=== PATIENT | female | born 1950 | race American Indian/Alaskan Native ===

== ENCOUNTER 2017-08-10 05:15 | Day surgery (SDC) | payer MEDICARE, MEDICAID ==
[2017-08-10] MEDS ORDERED: fentaNYL 100 MCG/2 ML SDV IV ONE ×3 (05:16→06:36)
[2017-08-10] MEDS ORDERED: Midazolam 1 MG/ML 2 ML SDV IV ONE ×3 (05:16→06:37)
[2017-08-10] MEDS ORDERED: Dextrose 5%-0.45% NaCl 1,000 ML IV SCH (06:00)
[2017-08-10] MEDS ORDERED: Sodium Chloride 0.9% 10 ML Syringe FLUSH PRN (06:00)
[2017-08-10] MEDS ORDERED: Midazolam 1 MG/ML 2 ML SDV ONE (06:13)
[2017-08-10] MEDS ORDERED: fentaNYL 100 MCG/2 ML SDV ONE (06:13)
[2017-08-10 09:11] VITALS: BP 96/49
--- NOTE | 2017-08-10 09:46 | OR ---
DATE: 08/10/2017 PROCEDURE: Esophagogastroduodenoscopy and multiple pinch biopsies. INSTRUMENT USED: GIF-H180 Olympus video panendoscope. PREMEDICATIONS: No oral topical anesthesia used. Fentanyl 100 mcg intravenous, Versed 2 mg intravenous. Nasal 2 L O2 cannula. The procedure was done under pulse oximetry, BP recording, and alarm security or surveillance monitor. INDICATION: The patient with persistent upper abdominal pain and dyspepsia, unexplained, and not responsive to medical measures, on acid suppressants mcfp. Esophagogastroduodenoscopy is performed for detection of any active erosive lesions, malignancy also under consideration, H. pylori status to be determined, endoscopic hemostasis therapy if needed. DESCRIPTION OF PROCEDURE: The scope was passed with ease. Adequate visualization of the esophagus was made from proximal to distal areas. No upper esophageal lesions identified. No distal esophageal stricture. No uphill or downhill esophageal varices. No Jennifer-Moreno tear. No evidence of erosive esophagitis by [employer] criteria. No esophageal polyp or tumor mass identified. Z-line was seen at around 40 cm distal to the oral verge, configuration consistent with grade 1 by ZAP classification. No proximal gastric varices noted. Gastric fundus examination by retroflexion showed no polypoid lesions. No gastric ulcer, malignant mass, or vascular ectasia identified. Duodenal bulb showed no ulcer. Visualized second part of the duodenum, showed diverticulum, photograph was taken, multiple pinch biopsies were taken from the gastric antrum and proximal body and sent for Pyl[employer]ek test for H. pylori, and if negative in an hour, the tissue is to be sent for histopathology. No bleeding was noted from any of the visualized areas at the completion of examination. Photographs were taken of the duodenal bulb, gastric antrum, fundus, and distal esophagus. IMPRESSION: Duodenal diverticulum. The patient tolerated the procedure well. [facility] /[id number]
== END 2017-08-10 08:35 | disposition home or self-care (01) ==
LOC: DL.ENDO 05:15
PROVIDERS: ATTEND Internal Medicine Gastroenterology
DX: K29.50 Unspecified chronic gastritis without bleeding (principal); K57.10 Diverticulosis of small intestine without perforation or abscess without bleeding; E11.9 Type 2 diabetes mellitus without complications; E66.9 Obesity, unspecified; E78.5 Hyperlipidemia, unspecified; F32.9 Major depressive disorder, single episode, unspecified; K21.9 Gastro-esophageal reflux disease without esophagitis; Z88.1 Allergy status to other antibiotic agents; Z88.2 Allergy status to sulfonamides; Z88.8 Allergy status to other drugs, medicaments and biological substances
CPT/HCPCS: 43239; 87077; J2250; J3010; J7042; 88305

== ENCOUNTER 2019-09-11 12:02 | Emergency (ER) | payer MEDICARE, MEDICAID ==
[2019-09-11 12:29] VITALS: BP 131/50; PULSE 80
[2019-09-11 13:44] LABS: CHLORIDE,CL 102 mmol/L (101-111); SODIUM,NA 136 mmol/L (135-145)
--- NOTE | 2019-09-11 14:07 | EDM.PDOC ---
Scribed by Layne Riojas 09/11/19 0622 for Fernando Manzo PA ED HPI GENERAL MEDICAL PROBLEM - General Chief Complaint: Flank Pain Stated Complaint: LOWER BACK HURTS, NOT FEELING GOOD Time Seen by Provider: 09/11/19 12:55 Source of Information: Reports: Patient, RN, RN Notes Reviewed History Limitations: Reports: No Limitations - History of Present Illness INITIAL COMMENTS - FREE TEXT/NARRATIVE: Patient is a 69-year-old female who presents to ER with "back hurts" x 2 days. She took Tylenol. She had an MRI in [place] for a spot on her right kidney. On 08/30/19 she had her last MD visit. She has a sore throat, eyes hurt and diffuse abdominal pain. Onset: Gradual Duration: Getting Worse Location: Reports: Back Quality: Reports: Ache Severity: Moderate Improves with: Reports: None Worsens with: Reports: None Associated Symptoms: Reports: No Other Symptoms Right Flank Pain Score (Numeric/FACES): 6 - Related Data Allergies Allergy/AdvReac Type Severity Reaction Status Date / Time acetaminophen Allergy Rash Verified 09/11/19 12:18 [From Darvocet-N 100] atorvastatin calcium Allergy Cannot Verified 09/11/19 12:18 [From Lipitor] Remember cephalexin [From Keflex] Allergy Swelling Verified 09/11/19 12:18 codeine Allergy Nausea and Verified 09/11/19 12:18 Vomiting lansoprazole [From Prevacid] Allergy Rash Verified 09/11/19 12:18 levofloxacin [From Levaquin] Allergy Blisters Verified 09/11/19 12:18 propoxyphene napsylate Allergy Rash Verified 09/11/19 12:18 [From Darvocet-N 100] Sulfa (Sulfonamide Allergy Cannot Verified 09/11/19 12:18 Antibiotics) Remember tramadol HCl [From Ultram] Allergy Rash Verified 09/11/19 12:18 Milk Allergy Diarrhea Uncoded 09/11/19 12:18 Home Meds: Home Meds Acetaminophen [Tylenol Extra Strength] 500 tab PO DAILY PRN 09/05/13 [History] Calcium Carbonate/Vitamin D3 [Calcium 250+D] 500 mg PO BID 09/05/13 [History] Clopidogrel [Plavix] 75 mg PO DAILY 09/05/13 [History] Diclofenac Sodium [Voltaren 1% Gel] 1 applic TOP ASDIRECTED PRN 09/05/13 [ History] Levothyroxine [Synthroid] 175 mcg PO ACBRK 09/05/13 [History] Loperamide [Imodium] 2 mg PO DAILY PRN 09/05/13 [History] Mirtazapine [Remeron] 15 mg PO BEDTIME 09/05/13 [History] Tiotropium [Spiriva HandiHaler] 1 cap IH DAILY PRN 09/05/13 [History] amLODIPine [Norvasc] 5 mg PO DAILY 09/05/13 [History] Colesevelam [Welchol] 3 tab PO BID 11/12/13 [History] DULoxetine [Cymbalta] 60 mg PO BID 11/12/13 [History] sitaGLIPtin Phos/Metformin HCl [Janumet 50-1,000 mg Tablet] 1 each PO BID [History] Furosemide [Lasix] 40 mg PO BID 03/15/14 [History] Insulin Aspart [NovoLOG] 15 unit SQ TIDMEALS 05/14/16 [History] Budesonide/Formoterol Fumarate [Symbicort 80-4.5 MCG] 2 puff INH BID 08/07/17 [ History] Valsartan 1 tab PO DAILY 08/07/17 [History] Aspirin [Adult Low Dose Aspirin EC] 81 mg PO DAILY 03/08/18 [History] Insulin Detemir [Levemir Flextouch] 80 units INJECT BEDTIME 03/08/18 [History] Nitroglycerin [Nitrostat] 0.4 mg PO ASDIRECTED 03/08/18 [History] Nystatin 500,000 unit PO QID 03/08/18 [History] Pantoprazole [ProTONIX] 40 mg PO DAILY 03/08/18 [History] Potassium Chloride 1 tab PO BID 03/08/18 [History] hydrOXYzine HCL [hydrOXYzine] 1 tab PO TID PRN 03/08/18 [History] traZODone HCl [Trazodone HCl] 25 mg PO DAILY 03/08/18 [History] ClonazePAM [KlonoPIN] 0.5 mg PO TID 03/09/18 [History] Past Medical History HEENT History: Reports: Epistaxis, Impaired Vision, Other (See Below) (aneurysm brain) Cardiovascular History: Reports: CAD, High Cholesterol, Hypertension, SOB on Exertion, Other (See Below) Other Cardiovascular History: ISCHEMIC HEART DIESASE Respiratory History: Reports: COPD, Sleep Apnea, Other (See Below) Gastrointestinal History: Reports: Diverticulosis, GERD, Hemorrhoids, Hiatal Hernia, Irritable Bowel Syndrome Other Gastrointestinal History: Focal nodular hyperplasia of liver. 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 Post menopausal HRT Musculoskeletal History: Reports: Osteoarthritis, Other (See Below) (right knee pain) Neurological History: Reports: Cerebral Aneurysms, CVA Other Neuro History: Embolic stroke involving anterior cerebral artery, right Psychiatric History: Reports: Anxiety, Depression Endocrine/Metabolic History: Reports: Diabetes, Type II, Hypothyroidism, Obesity /BMI 30+ Hematologic History: Reports: None Immunologic History: Reports: None Oncologic (Cancer) History: Reports: Cervix Dermatologic History: Reports: Cellulitis - Infectious Disease History Infectious Disease History: Reports: None - Past Surgical History Head Surgeries/Procedures: Reports: None HEENT Surgical History: Reports: Other (See Below) GI Surgical History: Reports: Cholecystectomy Female Surgical History: Reports: Hysterectomy Social & Family History - Family History Family Medical History: Noncontributory - Tobacco Use Smoking Status *Q: Never Smoker Second Hand Smoke Exposure: No - Caffeine Use Caffeine Use: Reports: Coffee Other Caffeine Use: AVERAGE OF 4 CUPS DAILY - Recreational Drug Use Recreational Drug Use: No - Living Situation & Occupation Living situation: Reports: with Family Occupation: Retired ED ROS GENERAL - Review of Systems Review Of Systems: Comprehensive ROS is negative, except as noted in HPI. ED EXAM,LOWER BACK PAIN/INJURY - Physical Exam Exam: See Below Exam Limited By: No Limitations General Appearance: Obese Eye Exam: Bilateral Eye: EOMI, Normal Inspection, PERRL Ears: Normal External Exam, Normal Canal, Hearing Grossly Normal, Normal TMs Nose: Normal Inspection, Normal Mucosa, No Blood Throat/Mouth: Other (dry mouth) Head: Atraumatic, Normocephalic Neck: Normal Inspection, Supple, Non-Tender, Full Range of Motion Respiratory/Chest: No Respiratory Distress, Lungs Clear, Normal Breath Sounds, No Accessory Muscle Use, Chest Non-Tender Cardiovascular: Normal Peripheral Pulses, Regular Rate, Rhythm, No Edema, No Gallop, No JVD, No Murmur, No Rub GI/Abdominal: Other (obese) (Female) Exam: Deferred Rectal (Female) Exam: Deferred Back Exam: Other (right lateral back pain) Extremities: Normal Inspection, Normal Range of Motion, Non-Tender, No Pedal Edema, Normal Capillary Refill Neurological: Alert, Normal Mood/Affect, Normal Dorsiflexion, CN II-XII Intact, Normal Plantar Flexion, Normal Gait, Normal Reflexes, No Motor/Sensory Deficits , Oriented x 3 Psychiatric: Normal Affect, Normal Mood Skin Exam: Warm, Dry, Intact, Normal Color, No Rash Lymphatic: No Adenopathy Course - Vital Signs Last Recorded V/S: Last Vital Signs Temp 36.3 C 09/11/19 12:23 Pulse 80 09/11/19 12:23 Resp 16 09/11/19 12:23 BP 131/50 L 09/11/19 12:23 Pulse Ox 98 09/11/19 12:23 - Orders/Labs/Meds Orders: Active Orders 24 hr Category Date Time Status CULTURE STREP A CONFIRMATION [RM] Stat Lab 09/11/19 12:51 Results STREP SCRN A RAPID W CULT CONF [RM] Stat Lab 09/11/19 12:51 Results Labs: Laboratory Tests 09/11/19 09/11/19 09/11/19 Range/Units 12:25 13:16 13:16 WBC 6.7 (5.0-10.0) 10^3/uL RBC 4.41 (4.2-5.4) 10^6/uL Hgb 11.5 L (12.0-16.0) g/dL Hct 36.7 L (37.0-47.0) % MCV 83.2 (80-100) fL MCH 26.1 L (27.0-34.0) pg MCHC 31.3 L (33.0-35.0) g/dL Plt Count 270 (150-450) 10^3/uL Neut % (Auto) 63.0 (42.2-75.2) % Lymph % (Auto) 22.7 (20.5-50.1) % Dickens % (Auto) 12.0 H (2-8) % Eos % (Auto) 2.0 (1.0-3.0) % Baso % (Auto) 0.3 (0.0-1.0) % Sodium 136 (135-145) mmol/L Potassium 4.0 (3.6-5.0) mmol/L Chloride 102 D (101-111) mmol/L Carbon Dioxide 26.0 (21.0-31.0) mmol/L Anion Gap 12.0 BUN 10 (7-18) mg/dL Creatinine 0.9 (0.6-1.3) mg/dL Est Cr Clr Drug Dosing 49.49 mL/min Estimated GFR (MDRD) > 60 BUN/Creatinine Ratio 11.11 Glucose 157 H (74-105) mg/dL Calcium 9.5 (8.4-10.2) mg/dl Total Bilirubin 0.2 (0.2-1.0) mg/dL AST 30 (10-42) IU/L ALT 19 (10-60) IU/L Alkaline Phosphatase 62 (42-121) IU/L Total Protein 7.9 (6.7-8.2) g/dl Albumin 3.7 (3.2-5.5) g/dl Globulin 4.2 Albumin/Globulin Ratio 0.88 Urine Color Yellow (YELLOW) Urine Appearance Clear (CLEAR) Urine pH 5.5 (5.0-9.0) Ur Specific Armstrong 1.010 (1.005-1.030) Urine Protein Negative (NEGATIVE) Urine Glucose (UA) Negative (NEGATIVE) Urine Ketones Negative (NEGATIVE) Urine Occult Blood Negative (NEGATIVE) Urine Nitrite Negative (NEGATIVE) Urine Bilirubin Negative (NEGATIVE) Urine Urobilinogen 0.2 (0.2-1.0) mg/dL Ur Leukocyte Esterase Negative (NEGATIVE) Meds: Medications Discontinued Medications Generic Name Dose Route Start Last Admin Trade Name Gwen PRN Reason Stop Dose Admin Ketorolac Tromethamine 30 mg 09/11/19 14:02 Toradol IM 09/11/19 14:03 ONETIME ONE Departure - Departure Time of Disposition: 14:03 Disposition: Home, Self-Care 01 Condition: Fair Clinical Impression: Muscle strain Low back pain Qualifiers: Chronicity: acute Back pain laterality: right Sciatica presence: without sciatica Qualified Code(s): M54.5 - Low back pain - Discharge Information *PRESCRIPTION DRUG MONITORING PROGRAM REVIEWED*: Not Applicable *COPY OF PRESCRIPTION DRUG MONITORING REPORT IN PATIENT MACIE: Not Applicable Instructions: Back Injury Prevention, [id number], Low Back Strain Forms: ED Department Discharge Care Plan Goals: The patient was advised of the examination and lab results during the visit. The patient was given an injection of Toradol while in the ED. The patient was discharged with a script for Toradol (10 mg) #20 to take 1 by mouth every 6 hours. If the patient has any additional symptoms or concerns, the patient should either return to the emergency department or visit her primary care facility. Sepsis Event Note - Evaluation Sepsis Screening Result: No Definite Risk - Focused Exam Vital Signs: Vital Signs Temp Pulse Resp BP Pulse Ox 09/11/19 12:23 36.3 C 80 16 131/50 L 98 Date Exam was Performed: 09/11/19 Time Exam was Performed: 14:03 - My Orders Last 24 Hours: My Active Orders 09/11/19 12:51 CULTURE STREP A CONFIRMATION [RM] Stat STREP SCRN A RAPID W CULT CONF [RM] Stat - Assessment/Plan Last 24 Hours: My Active Orders 09/11/19 12:51 CULTURE STREP A CONFIRMATION [RM] Stat STREP SCRN A RAPID W CULT CONF [RM] Stat I have read and agree with the documentation that has been completed regarding this visit. By signing this record, I attest that the documentation was completed in my physical presence and is an accurate record of the encounter.
[2019-09-11] MEDS: Ketorolac 30 MG/ML SDV IM ONE (14:10)
== END 2019-09-11 14:20 | disposition home or self-care (01) ==
LOC: DL.ED 12:02
DX: M54.5 Low back pain (principal)
CPT/HCPCS: 36415; 80053; 81003; 85025; 87081; 87430; 87804; 96372; 99284; J1885

== ENCOUNTER 2020-03-18 09:25 | Emergency (ER) | payer MEDICARE, MEDICAID ==
[2020-03-18 09:42] VITALS: BP 149/54; PULSE 87
--- NOTE | 2020-03-18 09:48 | EDM.PDOC ---
ED HPI GENERAL MEDICAL PROBLEM - General Chief Complaint: Gastrointestinal Problem Stated Complaint: AMBULANCE Time Seen by Provider: 03/18/20 09:25 Source of Information: Reports: Patient History Limitations: Reports: No Limitations - History of Present Illness INITIAL COMMENTS - FREE TEXT/NARRATIVE: ED with c/o not feeling well , diarrhea stools x one week. Colonoscopy on february 20 for same, blood noted prior with diarrhea. Hx lung ca. last chemo on - Granix. Feeling bloated. Ran out of immodium at 3am. Has taken Pepto. doesn't seem to help. Up to BR every 15-30 minutes, explosive small amounts Abdomen Pain Score (Numeric/FACES): 6 - Related Data Allergies Allergy/AdvReac Type Severity Reaction Status Date / Time acetaminophen Allergy Rash Verified 03/18/20 09:41 [From Darvocet-N 100] atorvastatin calcium Allergy Cannot Verified 03/18/20 09:41 [From Lipitor] Remember cephalexin [From Keflex] Allergy Swelling Verified 03/18/20 09:41 codeine Allergy Nausea and Verified 03/18/20 09:41 Vomiting lansoprazole [From Prevacid] Allergy Rash Verified 03/18/20 09:41 levofloxacin [From Levaquin] Allergy Blisters Verified 03/18/20 09:41 propoxyphene napsylate Allergy Rash Verified 03/18/20 09:41 [From Darvocet-N 100] Sulfa (Sulfonamide Allergy Cannot Verified 03/18/20 09:41 Antibiotics) Remember tramadol HCl [From Ultram] Allergy Rash Verified 03/18/20 09:41 Milk Allergy Diarrhea Uncoded 09/11/19 12:18 Home Meds: Home Meds Acetaminophen [Tylenol Extra Strength] 500 tab PO DAILY PRN 09/05/13 [History] Calcium Carbonate/Vitamin D3 [Calcium 250+D] 500 mg PO BID 09/05/13 [History] Clopidogrel [Plavix] 75 mg PO DAILY 09/05/13 [History] Diclofenac Sodium [Voltaren 1% Gel] 1 applic TOP ASDIRECTED PRN 09/05/13 [History] Levothyroxine [Synthroid] 175 mcg PO ACBRK 09/05/13 [History] Loperamide [Imodium] 2 mg PO DAILY PRN 09/05/13 [History] Mirtazapine [Remeron] 15 mg PO BEDTIME 12/16/13 [History] Tiotropium [Spiriva HandiHaler] 1 cap IH DAILY PRN 09/05/13 [History] amLODIPine [Norvasc] 5 mg PO DAILY 09/05/13 [History] Colesevelam [Welchol] 3 tab PO BID 11/12/13 [History] DULoxetine [Cymbalta] 60 mg PO BID 11/12/13 [History] sitaGLIPtin Phos/Metformin HCl [Janumet 50-1,000 mg Tablet] 1 each PO BID 11/12/13 [History] Furosemide [Lasix] 40 mg PO BID 03/15/14 [History] Insulin Aspart [NovoLOG] 16 unit SQ TIDMEALS 05/14/16 [History] Budesonide/Formoterol Fumarate [Symbicort 80-4.5 MCG] 2 puff INH BID 08/07/17 [History] Valsartan 1 tab PO DAILY 08/07/17 [History] Aspirin [Adult Low Dose Aspirin EC] 81 mg PO DAILY 03/08/18 [History] Insulin Detemir [Levemir Flextouch] 80 units INJECT BEDTIME 03/08/18 [History] Nitroglycerin [Nitrostat] 0.4 mg PO ASDIRECTED 03/08/18 [History] Nystatin 500,000 unit PO QID 03/08/18 [History] Pantoprazole [ProTONIX] 40 mg PO DAILY 03/08/18 [History] Potassium Chloride 1 tab PO BID 03/08/18 [History] hydrOXYzine HCL [hydrOXYzine] 1 tab PO TID PRN 03/08/18 [History] traZODone HCl [Trazodone HCl] 25 mg PO BEDTIME 03/08/18 [History] ClonazePAM [KlonoPIN] 0.5 mg PO BID 03/09/18 [History] Past Medical History HEENT History: Reports: Epistaxis, Impaired Vision, Other (See Below) Cardiovascular History: Reports: CAD, High Cholesterol, Hypertension, SOB on Exertion, Other (See Below) Other Cardiovascular History: ISCHEMIC HEART DIESASE Respiratory History: Reports: COPD, Sleep Apnea, Other (See Below) Gastrointestinal History: Reports: Diverticulosis, GERD, Hemorrhoids, Hiatal Hernia, Irritable Bowel Syndrome Other Gastrointestinal History: Focal nodular hyperplasia of liver. 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 Post menopausal HRT Musculoskeletal History: Reports: Fibromyalgia, Osteoarthritis, Other (See Below) Neurological History: Reports: Cerebral Aneurysms, CVA Other Neuro History: Embolic stroke involving anterior cerebral artery, right Psychiatric History: Reports: Anxiety, Depression Endocrine/Metabolic History: Reports: Diabetes, Type II, Hypothyroidism, Obesity/BMI 30+ Hematologic History: Reports: None Immunologic History: Reports: None Oncologic (Cancer) History: Reports: Cervix Dermatologic History: Reports: Cellulitis - Infectious Disease History Infectious Disease History: Reports: None - Past Surgical History Head Surgeries/Procedures: Reports: None HEENT Surgical History: Reports: Tonsillectomy, Other (See Below) Cardiovascular Surgical History: Reports: None Respiratory Surgical History: Reports: None GI Surgical History: Reports: Cholecystectomy Female Surgical History: Reports: Hysterectomy Neurological Surgical History: Reports: None Musculoskeletal Surgical History: Reports: None Social & Family History - Family History Family Medical History: Noncontributory - Caffeine Use Caffeine Use: Reports: None Other Caffeine Use: AVERAGE OF 4 CUPS DAILY - Living Situation & Occupation Living situation: Reports: with Family Occupation: Retired ED ROS GENERAL - Review of Systems Review Of Systems: See Below Constitutional: Reports: Malaise, Decreased Appetite. Denies: Fever, Chills HEENT: Reports: No Symptoms Respiratory: Reports: No Symptoms Cardiovascular: Reports: No Symptoms GI/Abdominal: Reports: Abdominal Pain, Diarrhea, Decreased Appetite, Distension. Denies: Nausea : Reports: No Symptoms Musculoskeletal: Reports: No Symptoms Skin: Reports: No Symptoms Neurological: Reports: No Symptoms ED EXAM, GI/ABD - Physical Exam Exam: See Below Exam Limited By: No Limitations General Appearance: Alert, Mild Distress, Obese Ears: Normal External Exam Nose: Normal Inspection Throat/Mouth: Normal Inspection Head: Atraumatic, Normocephalic Neck: Normal Inspection Respiratory/Chest: No Respiratory Distress Cardiovascular: Normal Peripheral Pulses, Regular Rate, Rhythm Back Exam: Full Range of Motion Neurological: Alert, Oriented, Normal Cognition, No Motor/Sensory Deficits Psychiatric: Flat Affect Skin Exam: Warm, Dry, Intact, Pallor Course - Vital Signs Last Recorded V/S: Last Vital Signs Temp 96.2 F L 03/18/20 09:41 Pulse 87 03/18/20 09:41 Resp 14 03/18/20 09:41 BP 149/54 H 03/18/20 09:41 Pulse Ox 97 03/18/20 09:41 - Orders/Labs/Meds Orders: Active Orders 24 hr Category Date Time Status CLOSTRIDIUM DIFFICILE TOX RFLX [MREF] Stat Lab 03/18/20 09:47 Received CULTURE BLOOD [BC] Stat Lab 03/18/20 09:37 Received CULTURE BLOOD [BC] Stat Lab 03/18/20 10:25 Received CULTURE STOOL [RM] Stat Lab 03/18/20 09:47 Received OVA & PARASITES BY IMMUNOASSAY [MREF] Stat Lab 03/18/20 09:47 Received SHIGA TOXIN 1 & 2 [MREF] Stat Lab 03/18/20 09:47 Received UA RFX ADAMA AND CULT IF INDIC [URIN] Stat Lab 03/18/20 11:08 Ordered Blood Culture x2 Reflex Set [OM.PC] Stat Oth 03/18/20 09:30 Ordered Isolation [COMM] Stat Oth 03/18/20 09:33 Active Labs: Laboratory Tests 03/18/20 03/18/20 03/18/20 Range/Units 09:37 09:37 09:37 WBC 4.8 L (5.0-10.0) 10^3/uL RBC 3.13 L (4.2-5.4) 10^6/uL Hgb 9.2 L D (12.0-16.0) g/dL Hct 28.6 L (37.0-47.0) % MCV 91.4 D (80-100) fL MCH 29.4 (27.0-34.0) pg MCHC 32.2 L (33.0-35.0) g/dL Plt Count 61 L D (150-450) 10^3/uL Neut % (Auto) 80.6 H (42.2-75.2) % Lymph % (Auto) 7.1 L (20.5-50.1) % Boundary % (Auto) 11.7 H (2-8) % Eos % (Auto) 0.6 L (1.0-3.0) % Baso % (Auto) 0.0 (0.0-1.0) % Add Manual Diff Yes Neutrophils % (Manual) 62 (42-75) % Band Neutrophils % 15 % Lymphocytes % (Manual) 11 L (20-50) % Monocytes % (Manual) 4 (2-8) % Eosinophils % (Manual) 1 (1-3) % Metamyelocytes % 6 Myelocytes % 1 PT 11.0 (9.0-12.0) SEC INR 1.2 (0.9-1.2) Sodium 135 L (136-145) mmol/L Potassium 3.4 L (3.5-5.1) mmol/L Chloride 99 (98-107) mmol/L Carbon Dioxide 24 (21-32) mmol/L Anion Gap 15.4 H (7-13) mEq/L BUN 12 (7-18) mg/dL Creatinine 1.25 H (0.55-1.02) mg/dL Est Cr Clr Drug Dosing 32.50 mL/min Estimated GFR (MDRD) 43 BUN/Creatinine Ratio 9.6 (No establ ref range) Glucose 162 H (74-99) mg/dL Lactic Acid (0.4-2.0) mmol/L Calcium 8.9 (8.5-10.1) mg/dL Total Bilirubin 0.3 (0.2-1.0) mg/dL AST 40 H (15-37) U/L ALT 37 (14-59) U/L Alkaline Phosphatase 168 H (46-116) U/L Total Protein 8.1 (6.4-8.2) g/dL Albumin 3.3 L (3.4-5.0) g/dL Globulin 4.8 Albumin/Globulin Ratio 0.69 Amylase 20 L (25-115) U/L Lipase 137 (73-393) U/L SARS-CoV-2 RNA (RT-PCR) (NEGATIVE) 03/18/20 03/18/20 Range/Units 09:37 11:50 WBC (5.0-10.0) 10^3/uL RBC (4.2-5.4) 10^6/uL Hgb (12.0-16.0) g/dL Hct (37.0-47.0) % MCV (80-100) fL MCH (27.0-34.0) pg MCHC (33.0-35.0) g/dL Plt Count (150-450) 10^3/uL Neut % (Auto) (42.2-75.2) % Lymph % (Auto) (20.5-50.1) % Boundary % (Auto) (2-8) % Eos % (Auto) (1.0-3.0) % Baso % (Auto) (0.0-1.0) % Add Manual Diff Neutrophils % (Manual) (42-75) % Band Neutrophils % % Lymphocytes % (Manual) (20-50) % Monocytes % (Manual) (2-8) % Eosinophils % (Manual) (1-3) % Metamyelocytes % Myelocytes % PT (9.0-12.0) SEC INR (0.9-1.2) Sodium (136-145) mmol/L Potassium (3.5-5.1) mmol/L Chloride (98-107) mmol/L Carbon Dioxide (21-32) mmol/L Anion Gap (7-13) mEq/L BUN (7-18) mg/dL Creatinine (0.55-1.02) mg/dL Est Cr Clr Drug Dosing mL/min Estimated GFR (MDRD) BUN/Creatinine Ratio (No establ ref range) Glucose (74-99) mg/dL Lactic Acid 3.3 H* (0.4-2.0) mmol/L Calcium (8.5-10.1) mg/dL Total Bilirubin (0.2-1.0) mg/dL AST (15-37) U/L ALT (14-59) U/L Alkaline Phosphatase (46-116) U/L Total Protein (6.4-8.2) g/dL Albumin (3.4-5.0) g/dL Globulin Albumin/Globulin Ratio Amylase (25-115) U/L Lipase (73-393) U/L SARS-CoV-2 RNA (RT-PCR) Negative (NEGATIVE) Meds: Medications Discontinued Medications Generic Name Dose Route Start Last Admin Trade Name Freq PRN Reason Stop Dose Admin Sodium Chloride 1,000 mls @ 500 mls/hr 03/18/20 10:25 03/18/20 10:44 Normal Saline IV 03/18/20 12:24 500 mls/hr .BOLUS ONE Administration Iopamidol 100 ml 03/18/20 10:17 03/18/20 10:57 Isovue-300 (61%) IVPUSH 03/18/20 10:18 100 ml ONETIME ONE Administration - Re-Assessments/Exams Free Text/Narrative Re-Assessment/Exam: 03/18/20 11:48 Up to BSC frequently, supervision with tx, explosive small yellow/ green stools, watery, No ritu blood noted. Departure - Departure Time of Disposition: 11:47 Disposition: DC/Tfer to Acute Hospital 02 Condition: Undetermined Clinical Impression: Diarrhea, Hypokalemia, Heme + stool - Discharge Information *PRESCRIPTION DRUG MONITORING PROGRAM REVIEWED*: No *COPY OF PRESCRIPTION DRUG MONITORING REPORT IN PATIENT MACIE: No Forms: ED Department Discharge Sepsis Event Note (ED) - Focused Exam Vital Signs: Vital Signs Temp Pulse Resp BP Pulse Ox 03/18/20 09:41 96.2 F L 87 14 149/54 H 97 - My Orders Last 24 Hours: My Active Orders 03/18/20 09:30 Blood Culture x2 Reflex Set [OM.PC] Stat 03/18/20 09:33 Isolation [COMM] Stat 03/18/20 09:37 CULTURE BLOOD [BC] Stat 03/18/20 09:47 CLOSTRIDIUM DIFFICILE TOX RFLX [MREF] Stat CULTURE STOOL [RM] Stat OVA & PARASITES BY IMMUNOASSAY [MREF] Stat SHIGA TOXIN 1 & 2 [MREF] Stat 03/18/20 10:25 CULTURE BLOOD [BC] Stat 03/18/20 11:08 UA RFX ADAMA AND CULT IF INDIC [URIN] Stat - Assessment/Plan Last 24 Hours: My Active Orders 03/18/20 09:30 Blood Culture x2 Reflex Set [OM.PC] Stat 03/18/20 09:33 Isolation [COMM] Stat 03/18/20 09:37 CULTURE BLOOD [BC] Stat 03/18/20 09:47 CLOSTRIDIUM DIFFICILE TOX RFLX [MREF] Stat CULTURE STOOL [RM] Stat OVA & PARASITES BY IMMUNOASSAY [MREF] Stat SHIGA TOXIN 1 & 2 [MREF] Stat 03/18/20 10:25 CULTURE BLOOD [BC] Stat 03/18/20 11:08 UA RFX ADAMA AND CULT IF INDIC [URIN] Stat
[2020-03-18 10:11] LABS: ANION GAP 15.4 mEq/L (7-13)
[2020-03-18] MEDS ORDERED: Iopamidol 612 MG/ML 100 ML Bottle IVPUSH ONE (10:17)
[2020-03-18] MEDS ORDERED: Sodium Chloride 0.9% 1,000 ML IV ONE (10:25)
--- NOTE | 2020-03-18 11:21 | CT ---
PROCEDURE INFORMATION: Exam: CT Abdomen And Pelvis With Contrast Exam date and time: 03/18/2020 10:22 AM Age: 69 years old Clinical indication: Abdominal pain; Additional info: Distension pain, colonoscopy 03/02 TECHNIQUE: Imaging protocol: Computed tomography of the abdomen and pelvis with intravenous contrast. Radiation optimization: All CT scans at this facility use at least one of these dose optimization techniques: automated exposure control; mA and/or kV adjustment per patient size (includes targeted exams where dose is matched to clinical indication); or iterative reconstruction. Contrast material: ISOVUE; Contrast volume: 100 ml; Contrast route: INTRAVENOUS (IV); COMPARISON: CT Abdomen Pelvis w Cont 06/22/2018 9:52 AM FINDINGS: Lungs: Minimal dependent changes are present in the lung bases. Liver: The liver is enlarged with nodularity compatible with cirrhotic change. Gallbladder and bile ducts: Normal. No calcified stones. No ductal dilation. Pancreas: Normal. No ductal dilation. Spleen: Normal. No splenomegaly. Adrenals: Normal. No mass. Kidneys and ureters: Normal. No hydronephrosis. Stomach and bowel: Unremarkable. No obstruction. No mucosal thickening. Appendix: The appendix is seen and is normal in appearance. Intraperitoneal space: Unremarkable. No free air. No significant fluid collection. Vasculature: Vascular calcifications are present. Lymph nodes: Few mildly prominent periportal lymph nodes, largest measuring up to 1.5 cm in short axis dimension. Bladder: Unremarkable as visualized. Reproductive: Status post hysterectomy. Bones/joints: Unremarkable. No acute fracture. Soft tissues: Unremarkable. IMPRESSION: 1. The liver is enlarged with nodularity compatible with cirrhotic change. 2. No definite evidence of acute abdominal or pelvic pathology. Remainder of findings as described above.
== END 2020-03-18 12:50 ==
LOC: DL.ED 09:25
DX: E87.6 Hypokalemia (principal); R19.7 Diarrhea, unspecified; K92.1 Melena; I25.10 Atherosclerotic heart disease of native coronary artery without angina pectoris; E78.00 Pure hypercholesterolemia, unspecified; I10 Essential (primary) hypertension; J44.9 Chronic obstructive pulmonary disease, unspecified; K21.9 Gastro-esophageal reflux disease without esophagitis; F41.9 Anxiety disorder, unspecified; F32.9 Major depressive disorder, single episode, unspecified; E11.9 Type 2 diabetes mellitus without complications; E03.9 Hypothyroidism, unspecified; E66.9 Obesity, unspecified; Z68.43 Body mass index [BMI] 50.0-59.9, adult; Z88.6 Allergy status to analgesic agent; Z88.5 Allergy status to narcotic agent; Z88.1 Allergy status to other antibiotic agents; Z88.8 Allergy status to other drugs, medicaments and biological substances; Z88.2 Allergy status to sulfonamides; Z79.02 Long term (current) use of antithrombotics/antiplatelets; Z79.899 Other long term (current) drug therapy; Z79.4 Long term (current) use of insulin; Z79.82 Long term (current) use of aspirin; Z20.828 Contact with and (suspected) exposure to other viral communicable diseases
CPT/HCPCS: 36415; 74177; 80053; 82150; 82272; 83605; 83690; 85025; 85610; 87040; 87045; 87328; 87329; 87493; 87899; 96360; 96361; 99285; J7030; Q9967; U0002; 87046; 99284

== ENCOUNTER 2020-03-26 14:39 | Observation (INO) | payer MEDICARE, MEDICAID ==
[2020-03-26] MEDS ORDERED: Sodium Chloride 0.9% 1,000 ML IV ONE (15:09)
--- NOTE | 2020-03-26 15:26 | EDM.PDOC ---
ED HPI GENERAL MEDICAL PROBLEM - General Chief Complaint: Gastrointestinal Problem Stated Complaint: DIARREA [id number] Time Seen by Provider: 03/26/20 15:10 Source of Information: Reports: Patient, RN, RN Notes Reviewed History Limitations: Reports: No Limitations - History of Present Illness INITIAL COMMENTS - FREE TEXT/NARRATIVE: Patient presents to ER with complaint of diarrhea since . She states she has had 6-7 stools per day since then. Last took Imodium at 10:00 this A.M. States she last had chemotherapy 2 weeks ago for bilateral lung cancer. States decreased appetite and fluid intake. Admits to nausea and vomiting yesterday x1. Denies recent antibiotics, fever or chills. 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: Other Medication(s) umbilical Pain Score (Numeric/FACES): 7 - Related Data Allergies Allergy/AdvReac Type Severity Reaction Status Date / Time acetaminophen Allergy Rash Verified 03/26/20 14:55 [From Darvocet-N 100] atorvastatin calcium Allergy Cannot Verified 03/26/20 14:55 [From Lipitor] Remember cephalexin [From Keflex] Allergy Swelling Verified 03/26/20 14:55 codeine Allergy Nausea and Verified 03/26/20 14:55 Vomiting lansoprazole [From Prevacid] Allergy Rash Verified 03/26/20 14:55 levofloxacin [From Levaquin] Allergy Blisters Verified 03/26/20 14:55 propoxyphene napsylate Allergy Rash Verified 03/26/20 14:55 [From Darvocet-N 100] Sulfa (Sulfonamide Allergy Cannot Verified 03/26/20 14:55 Antibiotics) Remember tramadol HCl [From Ultram] Allergy Rash Verified 03/26/20 14:55 Milk Allergy Diarrhea Uncoded 09/11/19 12:18 Home Meds: Home Meds Acetaminophen [Tylenol Extra Strength] 500 tab PO DAILY PRN 09/05/13 [History] Calcium Carbonate/Vitamin D3 [Calcium 250+D] 500 mg PO BID 09/05/13 [History] Clopidogrel [Plavix] 75 mg PO DAILY 09/05/13 [History] Diclofenac Sodium [Voltaren 1% Gel] 1 applic TOP ASDIRECTED PRN 09/05/13 [History] Levothyroxine [Synthroid] 175 mcg PO ACBRK 09/05/13 [History] Loperamide [Imodium] 2 mg PO DAILY PRN 09/05/13 [History] Mirtazapine [Remeron] 15 mg PO BEDTIME 09/05/13 [History] Tiotropium [Spiriva HandiHaler] 1 cap IH DAILY PRN 09/05/13 [History] amLODIPine [Norvasc] 5 mg PO DAILY 09/05/13 [History] Colesevelam [Welchol] 3 tab PO BID 11/12/13 [History] DULoxetine [Cymbalta] 60 mg PO BID 11/12/13 [History] sitaGLIPtin Phos/Metformin HCl [Janumet 50-1,000 mg Tablet] 1 each PO BID 11/12/13 [History] Furosemide [Lasix] 40 mg PO BID 03/15/14 [History] Insulin Aspart [NovoLOG] 16 unit SQ TIDMEALS 05/14/16 [History] Budesonide/Formoterol Fumarate [Symbicort 80-4.5 MCG] 2 puff INH BID 08/07/17 [History] Valsartan 1 tab PO DAILY 08/07/17 [History] Aspirin [Adult Low Dose Aspirin EC] 81 mg PO DAILY 03/08/18 [History] Insulin Detemir [Levemir Flextouch] 80 units INJECT BEDTIME 03/08/18 [History] Nitroglycerin [Nitrostat] 0.4 mg PO ASDIRECTED 03/08/18 [History] Nystatin 500,000 unit PO QID 03/08/18 [History] Pantoprazole [ProTONIX] 40 mg PO DAILY 03/08/18 [History] Potassium Chloride 1 tab PO BID 03/08/18 [History] hydrOXYzine HCL [hydrOXYzine] 1 tab PO TID PRN 03/08/18 [History] traZODone HCl [Trazodone HCl] 25 mg PO BEDTIME 03/08/18 [History] ClonazePAM [KlonoPIN] 0.5 mg PO BID 03/09/18 [History] Past Medical History HEENT History: Reports: Epistaxis, Impaired Vision, Other (See Below) Cardiovascular History: Reports: CAD, High Cholesterol, Hypertension, SOB on Exertion, Other (See Below) Other Cardiovascular History: ISCHEMIC HEART DIESASE Respiratory History: Reports: COPD, Sleep Apnea, Other (See Below) Gastrointestinal History: Reports: Diverticulosis, GERD, Hemorrhoids, Hiatal Hernia, Irritable Bowel Syndrome Other Gastrointestinal History: Focal nodular hyperplasia of liver. 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 Post menopausal HRT Musculoskeletal History: Reports: Fibromyalgia, Osteoarthritis, Other (See Below) Neurological History: Reports: Cerebral Aneurysms, CVA Other Neuro History: Embolic stroke involving anterior cerebral artery, right Psychiatric History: Reports: Anxiety, Depression Endocrine/Metabolic History: Reports: Diabetes, Type II, Hypothyroidism, Obesity/BMI 30+ Hematologic History: Reports: None Immunologic History: Reports: None Oncologic (Cancer) History: Reports: Cervix Dermatologic History: Reports: Cellulitis - Infectious Disease History Infectious Disease History: Reports: None - Past Surgical History HEENT Surgical History: Reports: Tonsillectomy, Other (See Below) Cardiovascular Surgical History: Reports: None Respiratory Surgical History: Reports: None GI Surgical History: Reports: Cholecystectomy Female Surgical History: Reports: Hysterectomy Neurological Surgical History: Reports: None Musculoskeletal Surgical History: Reports: None Social & Family History - Family History Family Medical History: Noncontributory - Tobacco Use Smoking Status *Q: Never Smoker - Caffeine Use Caffeine Use: Reports: None Other Caffeine Use: AVERAGE OF 4 CUPS DAILY - Recreational Drug Use Recreational Drug Use: No - Living Situation & Occupation Living situation: Reports: with Family Occupation: Retired ED ROS GENERAL - Review of Systems Review Of Systems: Comprehensive ROS is negative, except as noted in HPI. ED EXAM, GI/ABD - Physical Exam Exam: See Below Exam Limited By: No Limitations General Appearance: Alert, WD/WN, Obese Eyes: Bilateral: Normal Appearance Ears: Normal External Exam, Normal Canal, Hearing Grossly Normal, Normal TMs Nose: Normal Inspection, Normal Mucosa, No Blood Throat/Mouth: Other (dry mucous membranes) Head: Atraumatic, Normocephalic Neck: Normal Inspection, Supple, Non-Tender, Full Range of Motion Respiratory/Chest: Decreased Breath Sounds Cardiovascular: Normal Peripheral Pulses, Regular Rate, Rhythm, No Edema, No Gallop, No JVD, No Murmur, No Rub GI/Abdominal Exam: Normal Bowel Sounds, Soft, Non-Tender, No Organomegaly, No Distention, No Abnormal Bruit, No Mass, Pelvis Stable (Female) Exam: Deferred Rectal (Female) Exam: Deferred Back Exam: Normal Inspection, Full Range of Motion, NT Extremities: Normal Inspection, Normal Range of Motion, Non-Tender, Normal Capillary Refill, No Pedal Edema Neurological: Alert, Oriented, CN II-XII Intact, Normal Cognition, Normal Gait, Normal Reflexes, No Motor/Sensory Deficits Psychiatric: Normal Affect, Normal Mood Skin Exam: Warm, Dry, Intact, Normal Color, No Rash Lymphatic: No Adenopathy Course - Vital Signs Last Recorded V/S: Last Vital Signs Temp 95.4 F L 03/26/20 14:47 Pulse 79 03/26/20 14:47 Resp 20 03/26/20 14:47 BP 142/67 H 03/26/20 14:47 Pulse Ox 98 03/26/20 14:47 - Orders/Labs/Meds Orders: Active Orders 24 hr Category Date Time Status Implanted Port Access [RC] DAILY Care 03/26/20 15:03 Active CBC WITH AUTO DIFF [HEME] Stat Lab 03/26/20 15:35 Results CULTURE STOOL [RM] Stat Lab 03/26/20 15:08 Ordered E COLI STOOL CULT [MREF] Stat Lab 03/26/20 15:08 Ordered MANUAL DIFFERENTIAL QA/NC [HEME] Stat Lab 03/26/20 15:35 Results REFLEX LACTIC ACID YES OR NO [CHEM] Routine Lab 03/26/20 16:09 Received UA W/MICROSCOPIC [URIN] Stat Lab 03/26/20 15:50 Results Labs: Laboratory Tests 03/26/20 03/26/20 03/26/20 Range/Units 15:35 15:35 15:35 WBC 6.8 (5.0-10.0) 10^3/uL RBC 2.78 L (4.2-5.4) 10^6/uL Hgb 8.4 L (12.0-16.0) g/dL Hct 26.3 L (37.0-47.0) % MCV 94.6 D (80-100) fL MCH 30.2 (27.0-34.0) pg MCHC 31.9 L (33.0-35.0) g/dL Plt Count 174 D (150-450) 10^3/uL Neut % (Auto) 70.0 (42.2-75.2) % Lymph % (Auto) 12.2 L (20.5-50.1) % [place] % (Auto) 15.6 H (2-8) % Eos % (Auto) 1.9 (1.0-3.0) % Baso % (Auto) 0.3 (0.0-1.0) % Add Manual Diff Yes Sodium 138 (136-145) mmol/L Potassium 3.4 L (3.5-5.1) mmol/L Chloride 106 (98-107) mmol/L Carbon Dioxide 20 L (21-32) mmol/L Anion Gap 15.4 H (7-13) mEq/L BUN 9 (7-18) mg/dL Creatinine 1.27 H (0.55-1.02) mg/dL Est Cr Clr Drug Dosing 35.07 mL/min Estimated GFR (MDRD) 42 BUN/Creatinine Ratio 7.1 (No establ ref range) Glucose 149 H (74-99) mg/dL Lactic Acid 2.8 H* (0.4-2.0) mmol/L Calcium 7.7 L (8.5-10.1) mg/dL Total Bilirubin 0.3 (0.2-1.0) mg/dL AST 20 (15-37) U/L ALT 21 (14-59) U/L Alkaline Phosphatase 128 H (46-116) U/L C-Reactive Protein 7.0 H (0.0-0.9) mg/dL Total Protein 7.0 (6.4-8.2) g/dL Albumin 2.6 L (3.4-5.0) g/dL Globulin 4.4 Albumin/Globulin Ratio 0.59 Urine Color (YELLOW) Urine Appearance (CLEAR) Urine pH (5.0-9.0) Ur Specific Rule (1.005-1.030) Urine Protein (NEGATIVE) Urine Glucose (UA) (NEGATIVE) Urine Ketones (NEGATIVE) Urine Occult Blood (NEGATIVE) Urine Nitrite (NEGATIVE) Urine Bilirubin (NEGATIVE) Urine Urobilinogen (0.2-1.0) mg/dL Ur Leukocyte Esterase (NEGATIVE) 03/26/20 Range/Units 15:50 WBC (5.0-10.0) 10^3/uL RBC (4.2-5.4) 10^6/uL Hgb (12.0-16.0) g/dL Hct (37.0-47.0) % MCV (80-100) fL MCH (27.0-34.0) pg MCHC (33.0-35.0) g/dL Plt Count (150-450) 10^3/uL Neut % (Auto) (42.2-75.2) % Lymph % (Auto) (20.5-50.1) % [place] % (Auto) (2-8) % Eos % (Auto) (1.0-3.0) % Baso % (Auto) (0.0-1.0) % Add Manual Diff Sodium (136-145) mmol/L Potassium (3.5-5.1) mmol/L Chloride (98-107) mmol/L Carbon Dioxide (21-32) mmol/L Anion Gap (7-13) mEq/L BUN (7-18) mg/dL Creatinine (0.55-1.02) mg/dL Est Cr Clr Drug Dosing mL/min Estimated GFR (MDRD) BUN/Creatinine Ratio (No establ ref range) Glucose (74-99) mg/dL Lactic Acid (0.4-2.0) mmol/L Calcium (8.5-10.1) mg/dL Total Bilirubin (0.2-1.0) mg/dL AST (15-37) U/L ALT (14-59) U/L Alkaline Phosphatase (46-116) U/L C-Reactive Protein (0.0-0.9) mg/dL Total Protein (6.4-8.2) g/dL Albumin (3.4-5.0) g/dL Globulin Albumin/Globulin Ratio Urine Color Yellow (YELLOW) Urine Appearance Cloudy (CLEAR) Urine pH 6.0 (5.0-9.0) Ur Specific Rule >= 1.030 (1.005-1.030) Urine Protein 100 H (NEGATIVE) Urine Glucose (UA) Negative (NEGATIVE) Urine Ketones Negative (NEGATIVE) Urine Occult Blood Trace-intact H (NEGATIVE) Urine Nitrite Negative (NEGATIVE) Urine Bilirubin Negative (NEGATIVE) Urine Urobilinogen 0.2 (0.2-1.0) mg/dL Ur Leukocyte Esterase Negative (NEGATIVE) Meds: Medications Discontinued Medications Generic Name Dose Route Start Last Admin Trade Name Gwen PRN Reason Stop Dose Admin Sodium Chloride 1,000 mls @ 999 mls/hr 03/26/20 15:09 03/26/20 15:50 Normal Saline IV 03/26/20 16:09 999 mls/hr .BOLUS ONE Administration - Re-Assessments/Exams Free Text/Narrative Re-Assessment/Exam: 03/26/20 16:15 Patient case discussed with Dr. Kinney who agreed to admit the patient for observation. Departure - Departure Time of Disposition: 16:16 Disposition: Refer to Observation Condition: Fair Clinical Impression: Bilateral lung cancer, Dehydration Diarrhea Qualifiers: Diarrhea type: unspecified type Qualified Code(s): R19.7 - Diarrhea, unspecified - Discharge Information *PRESCRIPTION DRUG MONITORING PROGRAM REVIEWED*: No *COPY OF PRESCRIPTION DRUG MONITORING REPORT IN PATIENT MACIE: No Forms: ED Department Discharge Sepsis Event Note (ED) - Evaluation Sepsis Screening Result: No Definite Risk - Focused Exam Vital Signs: Vital Signs Temp Pulse Resp BP Pulse Ox 03/26/20 14:47 95.4 F L 79 20 142/67 H 98 - My Orders Last 24 Hours: My Active Orders 03/26/20 15:03 Implanted Port Access [RC] DAILY 03/26/20 15:08 CULTURE STOOL [RM] Stat E COLI STOOL CULT [MREF] Stat 03/26/20 15:35 CBC WITH AUTO DIFF [HEME] Stat MANUAL DIFFERENTIAL QA/NC [HEME] Stat 03/26/20 15:50 UA W/MICROSCOPIC [URIN] Stat 03/26/20 16:09 REFLEX LACTIC ACID YES OR NO [CHEM] Routine - Assessment/Plan Last 24 Hours: My Active Orders 03/26/20 15:03 Implanted Port Access [RC] DAILY 03/26/20 15:08 CULTURE STOOL [RM] Stat E COLI STOOL CULT [MREF] Stat 03/26/20 15:35 CBC WITH AUTO DIFF [HEME] Stat MANUAL DIFFERENTIAL QA/NC [HEME] Stat 03/26/20 15:50 UA W/MICROSCOPIC [URIN] Stat 03/26/20 16:09 REFLEX LACTIC ACID YES OR NO [CHEM] Routine
[2020-03-26 16:02] LABS: ANION GAP 15.4 mEq/L (7-13)
[2020-03-26] MEDS ORDERED: Loperamide 2 MG Cap PO PRN (17:12)
[2020-03-26] MEDS ORDERED: hydrOXYzine HCl 25 MG Tab PO PRN (17:14)
[2020-03-26] MEDS ORDERED: NS + KCl 20mEq/L 1,000 ML IV SCH (17:15)
[2020-03-26] MEDS ORDERED: Morphine 2 MG/ML SYRINGE IVPUSH PRN (17:26)
[2020-03-26] MEDS ORDERED: oxyCODONE 5 MG Tab PO PRN (17:26)
[2020-03-26] MEDS ORDERED: Sodium Chloride 0.9% 10 ML Syringe FLUSH PRN (17:26)
--- NOTE | 2020-03-26 17:32 | PCM.HP ---
H&P History of Present Illness - General Date of Service: 03/26/20 Admit Problem/Dx: Admission Diagnosis/Problem Admission Diagnosis/Problem Diarrhea Source of Information: Patient - History of Present Illness Initial Comments - Free Text/Narative: 69-year-old with a history of prior stroke, diabetes, hypertension, anxiety. The patient has a history of lung cancer on chemotherapy with Dr. St in [place]. Last chemotherapy was 2 weeks ago. Has been having diarrhea on and off for 4 weeks. Bowel movement is yellow, green, watery. Associated moderate abdominal pain. Had the nausea but no vom iting the day before admission. No associated fever. Sometimes Imodium is helping but not lately. Had similar bouts of diarrhea for a few days and then improved and then a few days later it's restarting again. Scheduled for next oncology appointment on Thursday. umbilical Pain Score (Numeric/FACES): 7 - Related Data Allergies/Adverse Reactions: Allergies Allergy/AdvReac Type Severity Reaction Status Date / Time acetaminophen Allergy Rash Verified 03/26/20 14:55 [From Darvocet-N 100] atorvastatin calcium Allergy Cannot Verified 03/26/20 14:55 [From Lipitor] Remember cephalexin [From Keflex] Allergy Swelling Verified 03/26/20 14:55 codeine Allergy Nausea and Verified 03/26/20 14:55 Vomiting lansoprazole [From Prevacid] Allergy Rash Verified 03/26/20 14:55 levofloxacin [From Levaquin] Allergy Blisters Verified 03/26/20 14:55 propoxyphene napsylate Allergy Rash Verified 03/26/20 14:55 [From Darvocet-N 100] Sulfa (Sulfonamide Allergy Cannot Verified 03/26/20 14:55 Antibiotics) Remember tramadol HCl [From Ultram] Allergy Rash Verified 03/26/20 14:55 Milk Allergy Diarrhea Uncoded 09/11/19 12:18 Home Medications: Home Meds Acetaminophen [Tylenol Extra Strength] 500 tab PO DAILY PRN 09/05/13 [History] Calcium Carbonate/Vitamin D3 [Calcium 250+D] 500 mg PO BID 09/05/13 [History] Clopidogrel [Plavix] 75 mg PO DAILY 09/05/13 [History] Diclofenac Sodium [Voltaren 1% Gel] 1 applic TOP ASDIRECTED PRN 12/16/13 [History] Levothyroxine [Synthroid] 175 mcg PO ACBRK 09/05/13 [History] Loperamide [Imodium] 2 mg PO DAILY PRN 09/05/13 [History] Mirtazapine [Remeron] 15 mg PO BEDTIME 09/05/13 [History] Tiotropium [Spiriva HandiHaler] 1 cap IH DAILY PRN 09/05/13 [History] amLODIPine [Norvasc] 5 mg PO DAILY 09/05/13 [History] Colesevelam [Welchol] 3 tab PO BID 11/12/13 [History] DULoxetine [Cymbalta] 60 mg PO BID 11/12/13 [History] sitaGLIPtin Phos/Metformin HCl [Janumet 50-1,000 mg Tablet] 1 each PO BID 11/12/13 [History] Furosemide [Lasix] 40 mg PO BID 03/15/14 [History] Insulin Aspart [NovoLOG] 16 unit SQ TIDMEALS 05/14/16 [History] Budesonide/Formoterol Fumarate [Symbicort 80-4.5 MCG] 2 puff INH BID 08/07/17 [History] Valsartan 1 tab PO DAILY 08/07/17 [History] Aspirin [Adult Low Dose Aspirin EC] 81 mg PO DAILY 03/08/18 [History] Insulin Detemir [Levemir Flextouch] 80 units INJECT BEDTIME 03/08/18 [History] Nitroglycerin [Nitrostat] 0.4 mg PO ASDIRECTED 03/08/18 [History] Nystatin 500,000 unit PO QID 03/08/18 [History] Pantoprazole [ProTONIX] 40 mg PO DAILY 03/08/18 [History] Potassium Chloride 1 tab PO BID 03/08/18 [History] hydrOXYzine HCL [hydrOXYzine] 1 tab PO TID PRN 03/08/18 [History] traZODone HCl [Trazodone HCl] 25 mg PO BEDTIME 03/08/18 [History] ClonazePAM [KlonoPIN] 0.5 mg PO BID 03/09/18 [History] Past Medical History HEENT History: Reports: Epistaxis, Impaired Vision, Other (See Below) Cardiovascular History: Reports: CAD, High Cholesterol, Hypertension, SOB on Exertion, Other (See Below) Other Cardiovascular History: ISCHEMIC HEART DIESASE Respiratory History: Reports: COPD, Sleep Apnea, Other (See Below) Gastrointestinal History: Reports: Diverticulosis, GERD, Hemorrhoids, Hiatal Hernia, Irritable Bowel Syndrome Other Gastrointestinal History: Focal nodular hyperplasia of liver. HX OF HEPATATIC LESION Genitourinary History: Reports: Renal Calculus, Urinary Incontinence Other OB/BYN History: cervical cancer in 1980. Post menopausal HRT Musculoskeletal History: Reports: Fibromyalgia, Osteoarthritis, Other (See Below) Neurological History: Reports: Cerebral Aneurysms, CVA Other Neuro History: Embolic stroke involving anterior cerebral artery, right Psychiatric History: Reports: Anxiety, Depression Endocrine/Metabolic History: Reports: Diabetes, Type II, Hypothyroidism, Obesity/BMI 30+ Hematologic History: Reports: None Immunologic History: Reports: None Oncologic (Cancer) History: Reports: Cervix Dermatologic History: Reports: Cellulitis - Infectious Disease History Infectious Disease History: Reports: None - Past Surgical History HEENT Surgical History: Reports: Tonsillectomy, Other (See Below) Cardiovascular Surgical History: Reports: None Respiratory Surgical History: Reports: None GI Surgical History: Reports: Cholecystectomy Female Surgical History: Reports: Hysterectomy Neurological Surgical History: Reports: None Musculoskeletal Surgical History: Reports: None Social & Family History - Family History Family Medical History: Noncontributory - Tobacco Use Smoking Status *Q: Never Smoker - Caffeine Use Caffeine Use: Reports: None Other Caffeine Use: AVERAGE OF 4 CUPS DAILY - Recreational Drug Use Recreational Drug Use: No - Living Situation & Occupation Living situation: Reports: with Family Occupation: Retired H&P Review of Systems - Review of Systems: Review Of Systems: See Below General: Reports: Malaise, Weakness. Denies: Fever Pulmonary: Denies: Shortness of Breath Cardiovascular: Reports: Edema. Denies: Chest Pain Gastrointestinal: Reports: Abdominal Pain Genitourinary: Denies: Dysuria Psychiatric: Denies: Confusion Neurological: Denies: Dizziness, Headache Hematologic/Lymphatic: Reports: Anemia Exam - Exam Exam: See Below - Vital Signs Vital Signs: Last Vital Signs Temp 95.4 F L 03/26/20 14:47 Pulse 79 03/26/20 14:47 Resp 20 03/26/20 14:47 BP 142/67 H 03/26/20 14:47 Pulse Ox 98 03/26/20 14:47 Weight: 291 lb 3.2 oz - Exam Quality Assessment: No: Supplemental Oxygen General: Alert, Oriented Neck: Supple Lungs: Clear to Auscultation, Normal Respiratory Effort Cardiovascular: Regular Rate, Regular Rhythm GI/Abdominal Exam: Normal Bowel Sounds, Soft, Tender (Moderate tenderness), Other (Obese). No: Distended, Rigid, Rebound Extremities: Pedal Edema - Patient Data Lab Results Last 24 hrs: Laboratory Results - last 24 hr 03/26/20 03/26/20 03/26/20 Range/Units 15:35 15:35 15:35 WBC 6.8 (5.0-10.0) 10^3/uL RBC 2.78 L (4.2-5.4) 10^6/uL Hgb 8.4 L (12.0-16.0) g/dL Hct 26.3 L (37.0-47.0) % MCV 94.6 D (80-100) fL MCH 30.2 (27.0-34.0) pg MCHC 31.9 L (33.0-35.0) g/dL Plt Count 174 D (150-450) 10^3/uL Neut % (Auto) 70.0 (42.2-75.2) % Lymph % (Auto) 12.2 L (20.5-50.1) % [place] % (Auto) 15.6 H (2-8) % Eos % (Auto) 1.9 (1.0-3.0) % Baso % (Auto) 0.3 (0.0-1.0) % Add Manual Diff Yes Neutrophils % (Manual) 62 (42-75) % Band Neutrophils % 6 % Lymphocytes % (Manual) 16 L (20-50) % Monocytes % (Manual) 11 H (2-8) % Eosinophils % (Manual) 1 (1-3) % Metamyelocytes % 2 Myelocytes % 2 Sodium 138 (136-145) mmol/L Potassium 3.4 L (3.5-5.1) mmol/L Chloride 106 (98-107) mmol/L Carbon Dioxide 20 L (21-32) mmol/L Anion Gap 15.4 H (7-13) mEq/L BUN 9 (7-18) mg/dL Creatinine 1.27 H (0.55-1.02) mg/dL Est Cr Clr Drug Dosing 35.07 mL/min Estimated GFR (MDRD) 42 BUN/Creatinine Ratio 7.1 (No establ ref range) Glucose 149 H (74-99) mg/dL Lactic Acid 2.8 H* (0.4-2.0) mmol/L Calcium 7.7 L (8.5-10.1) mg/dL Total Bilirubin 0.3 (0.2-1.0) mg/dL AST 20 (15-37) U/L ALT 21 (14-59) U/L Alkaline Phosphatase 128 H (46-116) U/L C-Reactive Protein 7.0 H (0.0-0.9) mg/dL Total Protein 7.0 (6.4-8.2) g/dL Albumin 2.6 L (3.4-5.0) g/dL Globulin 4.4 Albumin/Globulin Ratio 0.59 Urine Color (YELLOW) Urine Appearance (CLEAR) Urine pH (5.0-9.0) Ur Specific [place] (1.005-1.030) Urine Protein (NEGATIVE) Urine Glucose (UA) (NEGATIVE) Urine Ketones (NEGATIVE) Urine Occult Blood (NEGATIVE) Urine Nitrite (NEGATIVE) Urine Bilirubin (NEGATIVE) Urine Urobilinogen (0.2-1.0) mg/dL Ur Leukocyte Esterase (NEGATIVE) Urine RBC /HPF Urine WBC (0-5/HPF) /HPF Ur Epithelial Cells (NOT SEEN) /HPF Amorphous Sediment (NOT SEEN) /HPF Urine Bacteria (0-FEW/HPF) /HPF Urine Mucus (NOT SEEN) /LPF 03/26/20 Range/Units 15:50 WBC (5.0-10.0) 10^3/uL RBC (4.2-5.4) 10^6/uL Hgb (12.0-16.0) g/dL Hct (37.0-47.0) % MCV (80-100) fL MCH (27.0-34.0) pg MCHC (33.0-35.0) g/dL Plt Count (150-450) 10^3/uL Neut % (Auto) (42.2-75.2) % Lymph % (Auto) (20.5-50.1) % [place] % (Auto) (2-8) % Eos % (Auto) (1.0-3.0) % Baso % (Auto) (0.0-1.0) % Add Manual Diff Neutrophils % (Manual) (42-75) % Band Neutrophils % % Lymphocytes % (Manual) (20-50) % Monocytes % (Manual) (2-8) % Eosinophils % (Manual) (1-3) % Metamyelocytes % Myelocytes % Sodium (136-145) mmol/L Potassium (3.5-5.1) mmol/L Chloride (98-107) mmol/L Carbon Dioxide (21-32) mmol/L Anion Gap (7-13) mEq/L BUN (7-18) mg/dL Creatinine (0.55-1.02) mg/dL Est Cr Clr Drug Dosing mL/min Estimated GFR (MDRD) BUN/Creatinine Ratio (No establ ref range) Glucose (74-99) mg/dL Lactic Acid (0.4-2.0) mmol/L Calcium (8.5-10.1) mg/dL Total Bilirubin (0.2-1.0) mg/dL AST (15-37) U/L ALT (14-59) U/L Alkaline Phosphatase (46-116) U/L C-Reactive Protein (0.0-0.9) mg/dL Total Protein (6.4-8.2) g/dL Albumin (3.4-5.0) g/dL Globulin Albumin/Globulin Ratio Urine Color Yellow (YELLOW) Urine Appearance Cloudy (CLEAR) Urine pH 6.0 (5.0-9.0) Ur Specific [place] >= 1.030 (1.005-1.030) Urine Protein 100 H (NEGATIVE) Urine Glucose (UA) Negative (NEGATIVE) Urine Ketones Negative (NEGATIVE) Urine Occult Blood Trace-intact H (NEGATIVE) Urine Nitrite Negative (NEGATIVE) Urine Bilirubin Negative (NEGATIVE) Urine Urobilinogen 0.2 (0.2-1.0) mg/dL Ur Leukocyte Esterase Negative (NEGATIVE) Urine RBC 5-10 H /HPF Urine WBC 0-5 (0-5/HPF) /HPF Ur Epithelial Cells Few (NOT SEEN) /HPF Amorphous Sediment Moderate H (NOT SEEN) /HPF Urine Bacteria Rare (0-FEW/HPF) /HPF Urine Mucus Few H (NOT SEEN) /LPF Result Diagrams: 03/26/20 15:35 03/26/20 15:35 - Problem List (1) Hypertension SNOMED Code(s): 22581844 ICD Code: I10 - ESSENTIAL (PRIMARY) HYPERTENSION Status: Acute Current Visit: Yes (2) Anemia SNOMED Code(s): 076394686 ICD Code: D64.9 - ANEMIA, UNSPECIFIED Status: Acute Current Visit: Yes (3) Depression SNOMED Code(s): 13895451 ICD Code: F32.9 - MAJOR DEPRESSIVE DISORDER, SINGLE EPISODE, UNSPECIFIED Status: Acute Current Visit: Yes (4) COPD (chronic obstructive pulmonary disease) SNOMED Code(s): 93331486 ICD Code: J44.9 - CHRONIC OBSTRUCTIVE PULMONARY DISEASE, UNSPECIFIED Status: Acute Current Visit: Yes (5) Diabetes SNOMED Code(s): 98198940 ICD Code: E11.9 - TYPE 2 DIABETES MELLITUS WITHOUT COMPLICATIONS Status: Acute Current Visit: Yes (6) Abdominal pain SNOMED Code(s): 99181927 ICD Code: R10.9 - UNSPECIFIED ABDOMINAL PAIN Status: Acute Current Visit: No Qualifiers: Abdominal location: upper abdomen, unspecified Qualified Code(s): R10.10 - Upper abdominal pain, unspecified (7) CVA, Cerebrovascular accident SNOMED Code(s): 629913303 ICD Code: I63.9 - CEREBRAL INFARCTION, UNSPECIFIED Status: Acute Current Visit: No (8) Diarrhea SNOMED Code(s): 80377538 ICD Code: R19.7 - DIARRHEA, UNSPECIFIED Status: Acute Current Visit: No (9) Hypokalemia SNOMED Code(s): 53184144 ICD Code: E87.6 - HYPOKALEMIA Status: Acute Current Visit: No (10) Lactic acidosis SNOMED Code(s): 75664799 ICD Code: E87.2 - ACIDOSIS Status: Acute Current Visit: No Problem List Initiated/Reviewed/Updated: Yes Orders Last 24hrs: Active Orders 24 hr Category Date Time Status Admission Diagnosis [ADT] Stat ADT 03/26/20 16:17 Ordered Admission Status [Patient Status] [ADT] Routine ADT 03/26/20 16:17 Active Glucose [Blood Glucose Check, Bedside] [RC] QIDACANDBED Care 03/26/20 17:26 Ordered Implanted Port Access [RC] DAILY Care 03/26/20 15:03 Active RT Post Treatment Assessment [RC] Click to Edit Care 03/26/20 17:24 Ordered RT Pre-Treatment Assessment [RC] Click to Edit Care 03/26/20 17:24 Ordered BASIC METABOLIC PANEL,BMP [CHEM] AM Lab 03/27/20 05:15 Ordered CBC WITH AUTO DIFF [HEME] AM Lab 03/27/20 05:15 Ordered CLOSTRIDIUM DIFFICILE TOX RFLX [MREF] Routine Lab 03/26/20 17:10 Ordered CULTURE STOOL [RM] Stat Lab 03/26/20 15:08 Ordered E COLI STOOL CULT [MREF] Stat Lab 03/26/20 15:08 Ordered LACTIC ACID [CHEM] AM Lab 03/27/20 05:11 Ordered REFLEX LACTIC ACID YES OR NO [CHEM] Routine Lab 03/26/20 16:09 Received Aspirin [Halfprin] Med 03/27/20 09:00 Ordered 81 mg PO DAILY Budesonide/Formoterol Fumarate [Symbicort 80-4.5 MCG] Med 03/26/20 21:00 Ordered 2 puff INH BID ClonazePAM [KlonoPIN] Med 03/26/20 21:00 Ordered 0.5 mg PO BID Clopidogrel [Plavix] Med 03/27/20 09:00 Ordered 75 mg PO DAILY DULoxetine [Cymbalta] Med 03/26/20 21:00 Ordered 60 mg PO BID Furosemide [Lasix] Med 03/27/20 09:00 Ordered 40 mg PO BID Insulin Aspart [NovoLOG] Med 03/27/20 08:00 Ordered 16 unit SQ TIDMEALS Insulin Glarg,Human.Rec.Analog [LantUS] Med 03/26/20 21:00 Ordered 80 unit SUBCUT BEDTIME Insulin Lispro [HumaLOG] Med 03/26/20 21:00 Ordered See Protocol SUBCUT ACBED Levothyroxine [Synthroid] Med 03/27/20 06:00 Ordered 175 mcg PO ACBRK Loperamide [Imodium] Med 03/26/20 17:12 Ordered 2 mg PO Q6H PRN Mirtazapine [Remeron] Med 03/26/20 21:00 Ordered 15 mg PO BEDTIME Nystatin Med 03/26/20 21:00 Ordered 500,000 unit PO QID Pantoprazole [ProTONIX] Med 03/27/20 09:00 Ordered 40 mg PO DAILY Potassium Chloride [Potassium Chloride] Med 03/26/20 21:00 Ordered 1 tab PO BID Psyllium [Metamucil] Med 03/26/20 21:00 Ordered 1.04 gm PO TID Sodium Chloride 0.9% with KCl 20 mEq @ 100 mL/Hr (1000 Med 03/26/20 17:15 Ordered mL) NS + KCl 20mEq/L [Normal Saline with 20 mEq KCl] 1,000 ml IV ASDIRECTED Tiotropium [Spiriva HandiHaler] Med 03/26/20 17:14 Ordered 1 cap INH DAILY PRN Valsartan [Valsartan] Med 03/27/20 09:00 Ordered 1 tab PO DAILY amLODIPine [Norvasc] Med 03/27/20 09:00 Ordered 5 mg PO DAILY hydrOXYzine HCL [Atarax] Med 03/26/20 17:14 Ordered 25 mg PO TID PRN traZODone Med 03/26/20 21:00 Ordered 25 mg PO BEDTIME Isolation [COMM] Stat Oth 03/26/20 17:11 Ordered Medication Orders Amlodipine Besylate (Norvasc) 5 mg PO DAILY REUBEN Aspirin (Halfprin) 81 mg PO DAILY REUBEN Clonazepam (Klonopin) 0.5 mg PO BID REUBEN Clopidogrel Bisulfate (Plavix) 75 mg PO DAILY REUBEN Duloxetine HCl (Cymbalta) 60 mg PO BID REUBEN Furosemide (Lasix) 40 mg PO BID REUBEN Hydroxyzine HCl (Atarax) 25 mg PO TID PRN PRN Reason: Itching Potassium Chloride/Sodium Chloride (Normal Saline With 20 Meq Kcl) 1,000 mls @ 100 mls/hr IV ASDIRECTED REUBEN Insulin Glargine (Lantus) 80 unit SUBCUT BEDTIME REUBEN Insulin Human Lispro (Humalog) 0 unit SUBCUT ACBED REUBEN; Protocol Levothyroxine Sodium (Synthroid) 175 mcg PO ACBRK REUBEN Loperamide HCl (Imodium) 2 mg PO Q6H PRN PRN Reason: Diarrhea Non-Formulary Medication (Budesonide/Formoterol Fumarate [Symbicort 80-4.5 Mcg]) 2 puff INH BID REUBEN Non-Formulary Medication (Insulin Aspart [Novolog]) 16 unit SQ TIDMEALS REUBEN Non-Formulary Medication (Mirtazapine [Remeron]) 15 mg PO BEDTIME REUBEN Non-Formulary Medication (Nystatin) 500,000 unit PO QID REUBEN Non-Formulary Medication (Potassium Chloride [Potassium Chloride]) 1 tab PO BID [facility] Non-Formulary Medication (Valsartan [Valsartan]) 1 tab PO DAILY [facility] Pantoprazole Sodium (Protonix) 40 mg PO DAILY [facility] Psyllium Hydrophilic Mucilloid (Metamucil) 1.04 gm PO TID [facility] Tiotropium [place] (Spiriva Handihaler) mcg INH DAILY PRN PRN Reason: Dyspnea Trazodone HCl (Trazodone) 25 mg PO BEDTIME [facility] Assessment/Plan Comment:: 69-year-old with a history of hypertension, prior stroke, diabetes, COPD, obesity, lung cancer on chemotherapy. Presented with 4 weeks history of on and off diarrhea. Imodium is not helping. Associated with nausea and vomiting. Diarrhea Likely related to chemotherapy Check stool culture, check stool for C. difficile Use Imodium Start Metamucil Consider sucralfate Lactic acidosis Likely related to diarrhea Will hydrate well Reschedule Lasix to hold tonight Recheck lactic acid in the morning History of prior stroke Continue aspirin, Plavix Anxiety Treat with clonazepam, temazepam, Cymbalta Diabetes Treat with Humalog with meals and Levemir at bedtime Hold metformin since that might contribute to diarrhea Follow blood sugars use supplemental insulin as needed COPD Continue Spiriva, Symbicort Hypertension Continue losartan, norvasc Follow renal function with hydration Anemia Likely secondary to chemotherapy Expect a drop in the morning after hydration Might need transfusion CODE STATUS was discussed with the patient Wish DNR CODE STATUS
[2020-03-26] MEDS ORDERED: Potassium Chloride 10 MEQ Tab.ER PO ONE (17:33)
[2020-03-26] MEDS ORDERED: Albuterol 6.7 GM Inhaler INH PRN ×2 (20:16→20:47)
[2020-03-26] MEDS ORDERED: [UNRECOGNIZED DRUG - OTHER] INH SCH (21:00)
[2020-03-26] MEDS ORDERED: FORMOTEROL FUMARATE INH SCH (21:00)
[2020-03-26] MEDS ORDERED: BUDESONIDE INH SCH (21:00)
[2020-03-26] MEDS: Insulin Glarg,Human.Rec.Analog 100 Unit/ML SUBCUT SCH (21:34)
[2020-03-26] MEDS: Insulin Lispro 100 Units/ML 3 ML Vial SUBCUT SCH (21:36)
[2020-03-26] MEDS: Psyllium 0.52 GM Cap PO SCH (21:38)
[2020-03-26] MEDS: Heparin Sodium 5,000 Units/ML Vial SUBCUT SCH (21:38)
[2020-03-26] MEDS ORDERED: Ondansetron 4 MG Tab.DIS PO PRN (21:53)
[2020-03-26] MEDS ORDERED: Prochlorperazine 5 MG Tab PO PRN (21:53)
[2020-03-26] MEDS ORDERED: Mirtazapine 15 MG Tab PO SCH (22:00)
[2020-03-26] MEDS: traZODone 50 MG Tab PO SCH (22:43)
[2020-03-26] MEDS: DULoxetine 30 MG Cap PO SCH (22:43)
[2020-03-26] MEDS: Potassium Chloride 10 MEQ Tab.ER PO SCH (22:44)
[2020-03-26] MEDS: Nystatin Susp 100,000 Unit/ML 5 ML UD Cup PO SCH (22:45)
[2020-03-26] MEDS: ClonazePAM 0.5 MG Tab PO SCH (22:45)
[2020-03-27] MEDS: Albuterol/Ipratropium 3.0-0.5 MG/3 ML Neb Soln NEB PRN ×2 (01:43→18:07)
[2020-03-27] MEDS ORDERED: Albuterol/Ipratropium 3.0-0.5 MG/3 ML Neb Soln NEB ONE (04:33)
[2020-03-27] MEDS ORDERED: Levothyroxine 75 MCG Tab PO SCH (06:00)
[2020-03-27] MEDS ORDERED: Levothyroxine 100 MCG Tab PO SCH (06:00)
[2020-03-27] MEDS ORDERED: Levothyroxine 50 MCG Tab PO SCH (06:00)
[2020-03-27] MEDS: Heparin Sodium 5,000 Units/ML Vial SUBCUT SCH ×3 (06:43→21:53)
[2020-03-27 06:52] LABS: ANION GAP 13.6 mEq/L (7-13)
[2020-03-27] MEDS: Insulin Lispro 100 Units/ML 3 ML Vial SUBCUT SCH ×6 (08:51→21:54)
[2020-03-27] MEDS: Budesonide 0.5 MG/2 ML Neb Susp NEB SCH ×2 (08:53→18:08)
[2020-03-27] MEDS: ClonazePAM 0.5 MG Tab PO SCH ×2 (08:53→21:51)
[2020-03-27] MEDS: Psyllium 0.52 GM Cap PO SCH ×3 (08:54→21:53)
[2020-03-27] MEDS: Potassium Chloride 10 MEQ Tab.ER PO SCH ×2 (08:55→21:50)
[2020-03-27] MEDS: DULoxetine 30 MG Cap PO SCH ×2 (08:56→21:52)
[2020-03-27] MEDS: Nystatin Susp 100,000 Unit/ML 5 ML UD Cup PO SCH ×4 (08:57→21:54)
[2020-03-27] MEDS ORDERED: VALSARTAN PO SCH (09:00)
--- NOTE | 2020-03-27 09:41 | PCM.PN ---
- General Info Date of Service: 03/27/20 Admission Dx/Problem (Free Text): Admission Diagnosis/Problem Admission Diagnosis/Problem Diarrhea Subjective Update: She feels the diarrhea is better but still had about 2 bowel movement during the night. Associated abdominal pain is mild and improved. No nausea. 8 breakfast well. No shortness of breath, no chest pain. Continues to have edema. Functional Status: Reports: Tolerating Diet - Review of Systems General: Denies: Fever Pulmonary: Denies: Shortness of Breath Cardiovascular: Denies: Chest Pain Gastrointestinal: Reports: Abdominal Pain (Mild) Genitourinary: Denies: Dysuria Psychiatric: Denies: Confusion - Patient Data Vitals - Most Recent: Last Vital Signs Temp 96.5 F L 03/27/20 08:00 Pulse 73 03/27/20 08:36 Resp 20 03/27/20 08:00 BP 109/42 L 03/27/20 08:00 Pulse Ox 96 03/27/20 08:00 Weight - Most Recent: 290 lb 8 oz I&O - Last 24 Hours: Intake & Output 03/26/20 03/27/20 03/27/20 22:59 06:59 14:59 Intake Total 1010 915 600 Output Total 750 Balance 1010 165 600 Lab Results Last 24 Hours: Laboratory Results - last 24 hr 03/26/20 03/26/20 03/26/20 Range/Units 15:35 15:35 15:35 WBC 6.8 (5.0-10.0) 10^3/uL RBC 2.78 L (4.2-5.4) 10^6/uL Hgb 8.4 L (12.0-16.0) g/dL Hct 26.3 L (37.0-47.0) % MCV 94.6 D (80-100) fL MCH 30.2 (27.0-34.0) pg MCHC 31.9 L (33.0-35.0) g/dL Plt Count 174 D (150-450) 10^3/uL Neut % (Auto) 70.0 (42.2-75.2) % Lymph % (Auto) 12.2 L (20.5-50.1) % [place] % (Auto) 15.6 H (2-8) % Eos % (Auto) 1.9 (1.0-3.0) % Baso % (Auto) 0.3 (0.0-1.0) % Add Manual Diff Yes Neutrophils % (Manual) 62 (42-75) % Band Neutrophils % 6 % Lymphocytes % (Manual) 16 L (20-50) % Monocytes % (Manual) 11 H (2-8) % Eosinophils % (Manual) 1 (1-3) % Metamyelocytes % 2 Myelocytes % 2 Sodium 138 (136-145) mmol/L Potassium 3.4 L (3.5-5.1) mmol/L Chloride 106 (98-107) mmol/L Carbon Dioxide 20 L (21-32) mmol/L Anion Gap 15.4 H (7-13) mEq/L BUN 9 (7-18) mg/dL Creatinine 1.27 H (0.55-1.02) mg/dL Est Cr Clr Drug Dosing 35.07 mL/min Estimated GFR (MDRD) 42 BUN/Creatinine Ratio 7.1 (No establ ref range) Glucose 149 H (74-99) mg/dL POC Glucose (70-105) mg/dl Lactic Acid 2.8 H* (0.4-2.0) mmol/L Calcium 7.7 L (8.5-10.1) mg/dL Total Bilirubin 0.3 (0.2-1.0) mg/dL AST 20 (15-37) U/L ALT 21 (14-59) U/L Alkaline Phosphatase 128 H (46-116) U/L C-Reactive Protein 7.0 H (0.0-0.9) mg/dL Total Protein 7.0 (6.4-8.2) g/dL Albumin 2.6 L (3.4-5.0) g/dL Globulin 4.4 Albumin/Globulin Ratio 0.59 Urine Color (YELLOW) Urine Appearance (CLEAR) Urine pH (5.0-9.0) Ur Specific [place] (1.005-1.030) Urine Protein (NEGATIVE) Urine Glucose (UA) (NEGATIVE) Urine Ketones (NEGATIVE) Urine Occult Blood (NEGATIVE) Urine Nitrite (NEGATIVE) Urine Bilirubin (NEGATIVE) Urine Urobilinogen (0.2-1.0) mg/dL Ur Leukocyte Esterase (NEGATIVE) Urine RBC /HPF Urine WBC (0-5/HPF) /HPF Ur Epithelial Cells (NOT SEEN) /HPF Amorphous Sediment (NOT SEEN) /HPF Urine Bacteria (0-FEW/HPF) /HPF Urine Mucus (NOT SEEN) /LPF 03/26/20 03/26/20 03/26/20 Range/Units 15:50 17:33 20:11 WBC (5.0-10.0) 10^3/uL RBC (4.2-5.4) 10^6/uL Hgb (12.0-16.0) g/dL Hct (37.0-47.0) % MCV (80-100) fL MCH (27.0-34.0) pg MCHC (33.0-35.0) g/dL Plt Count (150-450) 10^3/uL Neut % (Auto) (42.2-75.2) % Lymph % (Auto) (20.5-50.1) % [place] % (Auto) (2-8) % Eos % (Auto) (1.0-3.0) % Baso % (Auto) (0.0-1.0) % Add Manual Diff Neutrophils % (Manual) (42-75) % Band Neutrophils % % Lymphocytes % (Manual) (20-50) % Monocytes % (Manual) (2-8) % Eosinophils % (Manual) (1-3) % Metamyelocytes % Myelocytes % Sodium (136-145) mmol/L Potassium (3.5-5.1) mmol/L Chloride (98-107) mmol/L Carbon Dioxide (21-32) mmol/L Anion Gap (7-13) mEq/L BUN (7-18) mg/dL Creatinine (0.55-1.02) mg/dL Est Cr Clr Drug Dosing mL/min Estimated GFR (MDRD) BUN/Creatinine Ratio (No establ ref range) Glucose (74-99) mg/dL POC Glucose 155 H (70-105) mg/dl Lactic Acid 3.0 H* (0.4-2.0) mmol/L Calcium (8.5-10.1) mg/dL Total Bilirubin (0.2-1.0) mg/dL AST (15-37) U/L ALT (14-59) U/L Alkaline Phosphatase (46-116) U/L C-Reactive Protein (0.0-0.9) mg/dL Total Protein (6.4-8.2) g/dL Albumin (3.4-5.0) g/dL Globulin Albumin/Globulin Ratio Urine Color Yellow (YELLOW) Urine Appearance Cloudy (CLEAR) Urine pH 6.0 (5.0-9.0) Ur Specific [place] >= 1.030 (1.005-1.030) Urine Protein 100 H (NEGATIVE) Urine Glucose (UA) Negative (NEGATIVE) Urine Ketones Negative (NEGATIVE) Urine Occult Blood Trace-intact H (NEGATIVE) Urine Nitrite Negative (NEGATIVE) Urine Bilirubin Negative (NEGATIVE) Urine Urobilinogen 0.2 (0.2-1.0) mg/dL Ur Leukocyte Esterase Negative (NEGATIVE) Urine RBC 5-10 H /HPF Urine WBC 0-5 (0-5/HPF) /HPF Ur Epithelial Cells Few (NOT SEEN) /HPF Amorphous Sediment Moderate H (NOT SEEN) /HPF Urine Bacteria Rare (0-FEW/HPF) /HPF Urine Mucus Few H (NOT SEEN) /LPF 03/26/20 03/27/20 03/27/20 Range/Units 20:51 06:23 06:23 WBC 5.8 (5.0-10.0) 10^3/uL RBC 2.77 L (4.2-5.4) 10^6/uL Hgb 8.3 L (12.0-16.0) g/dL Hct 26.2 L (37.0-47.0) % MCV 94.6 (80-100) fL MCH 30.0 (27.0-34.0) pg MCHC 31.7 L (33.0-35.0) g/dL Plt Count 199 (150-450) 10^3/uL Neut % (Auto) 60.5 (42.2-75.2) % Lymph % (Auto) 16.2 L (20.5-50.1) % [place] % (Auto) 20.7 H (2-8) % Eos % (Auto) 2.1 (1.0-3.0) % Baso % (Auto) 0.5 (0.0-1.0) % Add Manual Diff Neutrophils % (Manual) (42-75) % Band Neutrophils % % Lymphocytes % (Manual) (20-50) % Monocytes % (Manual) (2-8) % Eosinophils % (Manual) (1-3) % Metamyelocytes % Myelocytes % Sodium (136-145) mmol/L Potassium (3.5-5.1) mmol/L Chloride (98-107) mmol/L Carbon Dioxide (21-32) mmol/L Anion Gap (7-13) mEq/L BUN (7-18) mg/dL Creatinine (0.55-1.02) mg/dL Est Cr Clr Drug Dosing mL/min Estimated GFR (MDRD) BUN/Creatinine Ratio (No establ ref range) Glucose (74-99) mg/dL POC Glucose 150 H (70-105) mg/dl Lactic Acid 1.3 (0.4-2.0) mmol/L Calcium (8.5-10.1) mg/dL Total Bilirubin (0.2-1.0) mg/dL AST (15-37) U/L ALT (14-59) U/L Alkaline Phosphatase (46-116) U/L C-Reactive Protein (0.0-0.9) mg/dL Total Protein (6.4-8.2) g/dL Albumin (3.4-5.0) g/dL Globulin Albumin/Globulin Ratio Urine Color (YELLOW) Urine Appearance (CLEAR) Urine pH (5.0-9.0) Ur Specific [place] (1.005-1.030) Urine Protein (NEGATIVE) Urine Glucose (UA) (NEGATIVE) Urine Ketones (NEGATIVE) Urine Occult Blood (NEGATIVE) Urine Nitrite (NEGATIVE) Urine Bilirubin (NEGATIVE) Urine Urobilinogen (0.2-1.0) mg/dL Ur Leukocyte Esterase (NEGATIVE) Urine RBC /HPF Urine WBC (0-5/HPF) /HPF Ur Epithelial Cells (NOT SEEN) /HPF Amorphous Sediment (NOT SEEN) /HPF Urine Bacteria (0-FEW/HPF) /HPF Urine Mucus (NOT SEEN) /LPF 03/27/20 03/27/20 03/27/20 Range/Units 06:23 08:12 09:03 WBC (5.0-10.0) 10^3/uL RBC (4.2-5.4) 10^6/uL Hgb (12.0-16.0) g/dL Hct (37.0-47.0) % MCV (80-100) fL MCH (27.0-34.0) pg MCHC (33.0-35.0) g/dL Plt Count (150-450) 10^3/uL Neut % (Auto) (42.2-75.2) % Lymph % (Auto) (20.5-50.1) % [place] % (Auto) (2-8) % Eos % (Auto) (1.0-3.0) % Baso % (Auto) (0.0-1.0) % Add Manual Diff Neutrophils % (Manual) (42-75) % Band Neutrophils % % Lymphocytes % (Manual) (20-50) % Monocytes % (Manual) (2-8) % Eosinophils % (Manual) (1-3) % Metamyelocytes % Myelocytes % Sodium 139 (136-145) mmol/L Potassium 3.6 (3.5-5.1) mmol/L Chloride 108 H (98-107) mmol/L Carbon Dioxide 21 (21-32) mmol/L Anion Gap 13.6 H (7-13) mEq/L BUN 9 (7-18) mg/dL Creatinine 1.17 H (0.55-1.02) mg/dL Est Cr Clr Drug Dosing 33.05 mL/min Estimated GFR (MDRD) 46 BUN/Creatinine Ratio (No establ ref range) Glucose 79 (74-99) mg/dL POC Glucose 58 L 73 (70-105) mg/dl Lactic Acid (0.4-2.0) mmol/L Calcium 7.6 L (8.5-10.1) mg/dL Total Bilirubin (0.2-1.0) mg/dL AST (15-37) U/L ALT (14-59) U/L Alkaline Phosphatase (46-116) U/L C-Reactive Protein (0.0-0.9) mg/dL Total Protein (6.4-8.2) g/dL Albumin (3.4-5.0) g/dL Globulin Albumin/Globulin Ratio Urine Color (YELLOW) Urine Appearance (CLEAR) Urine pH (5.0-9.0) Ur Specific [place] (1.005-1.030) Urine Protein (NEGATIVE) Urine Glucose (UA) (NEGATIVE) Urine Ketones (NEGATIVE) Urine Occult Blood (NEGATIVE) Urine Nitrite (NEGATIVE) Urine Bilirubin (NEGATIVE) Urine Urobilinogen (0.2-1.0) mg/dL Ur Leukocyte Esterase (NEGATIVE) Urine RBC /HPF Urine WBC (0-5/HPF) /HPF Ur Epithelial Cells (NOT SEEN) /HPF Amorphous Sediment (NOT SEEN) /HPF Urine Bacteria (0-FEW/HPF) /HPF Urine Mucus (NOT SEEN) /LPF Med Orders - Current: Current Medications Acetaminophen (Tylenol) 650 mg PO Q4H PRN PRN Reason: Pain (Mild 1-3)/fever Albuterol/Ipratropium (Duoneb 3.0-0.5 Mg/3 Ml) 3 ml NEB Q4H PRN PRN Reason: sob Last Admin: 03/27/20 01:43 Dose: 3 ml Documented by: Amlodipine Besylate (Norvasc) 5 mg PO DAILY [facility] Aspirin (Halfprin) 81 mg PO DAILY [facility] Budesonide (Pulmicort) 0.5 mg NEB BIDRT [facility] Last Admin: 03/27/20 08:53 Dose: 0.5 mg Documented by: Clonazepam (Klonopin) 0.5 mg PO BID [facility] Last Admin: 03/27/20 08:53 Dose: 0.5 mg Documented by: Clopidogrel Bisulfate (Plavix) 75 mg PO DAILY [facility] Duloxetine HCl (Cymbalta) 60 mg PO BID [facility] Last Admin: 03/27/20 08:56 Dose: 60 mg Documented by: Furosemide (Lasix) 40 mg PO BID [facility] Heparin Sodium (Porcine) (Heparin Sodium) 5,000 units SUBCUT Q8HR [facility] Last Admin: 03/27/20 06:43 Dose: 5,000 units Documented by: Hydroxyzine HCl (Atarax) 25 mg PO TID PRN PRN Reason: Itching Insulin Glargine (Lantus) 80 unit SUBCUT BEDTIME [facility] Last Admin: 03/26/20 21:34 Dose: 80 units Documented by: Insulin Human Lispro (Humalog) 0 unit SUBCUT QIDACANDBED [facility]; Protocol Last Admin: 03/27/20 08:51 Dose: Not Given Documented by: Levothyroxine Sodium (Synthroid) 100 mcg PO ACBRK [facility] Last Admin: 03/27/20 06:44 Dose: 100 mcg Documented by: Levothyroxine Sodium (Levothyroxine) 75 mcg PO ACBRK [facility] Last Admin: 03/27/20 06:44 Dose: 75 mcg Documented by: Loperamide HCl (Imodium) 2 mg PO Q6H PRN PRN Reason: Diarrhea Last Admin: 03/26/20 21:38 Dose: 2 mg Documented by: Mirtazapine (Remeron) 15 mg PO BEDTIME [facility] Last Admin: 03/26/20 22:45 Dose: 15 mg Documented by: Morphine Sulfate (Morphine) 1 mg IVPUSH Q2H PRN PRN Reason: Pain (severe 7-10) Non-Formulary Medication (Insulin Aspart [Novolog]) 16 unit SQ TIDMEALS [facility] Non-Formulary Medication (Valsartan [Valsartan]) 1 tab PO DAILY [facility] Nystatin (Mycostatin) 5 ml PO QID [facility] Last Admin: 03/27/20 08:57 Dose: 5 ml Documented by: Ondansetron HCl (Zofran Odt) 8 mg PO Q8H PRN PRN Reason: Nausea Oxycodone HCl (Oxycodone) 5 mg PO Q4H PRN PRN Reason: Pain (moderate 4-6) Pantoprazole Sodium (Protonix) 40 mg PO DAILY [facility] Potassium Chloride (Klor-Con 10) 20 meq PO BID [facility] Last Admin: 03/27/20 08:55 Dose: 20 meq Documented by: Prochlorperazine Maleate (Compazine) 10 mg PO Q6H PRN PRN Reason: Nausea Psyllium Hydrophilic Mucilloid (Metamucil) 1.04 gm PO TID [facility] Last Admin: 03/27/20 08:54 Dose: 1.04 gm Documented by: Sodium Chloride (Saline Flush) 10 ml FLUSH ASDIRECTED PRN PRN Reason: Keep Vein Open Tiotropium [place] (Spiriva Handihaler) mcg INH DAILY PRN PRN Reason: Dyspnea Trazodone HCl (Trazodone) 25 mg PO BEDTIME [facility] Last Admin: 03/26/20 22:43 Dose: 25 mg Documented by: Discontinued Medications Albuterol (Proventil Hfa) gm INH Q4HR PRN PRN Reason: Wheezing Albuterol (Proventil Hfa) gm INH Q4HR PRN PRN Reason: Wheezing Albuterol/Ipratropium (Duoneb 3.0-0.5 Mg/3 Ml) 3 ml NEB ONETIME ONE Stop: 03/27/20 04:34 Last Admin: 03/27/20 04:45 Dose: 3 ml Documented by: Sodium Chloride (Normal Saline) 1,000 mls @ 999 mls/hr IV .BOLUS ONE Stop: 03/26/20 16:09 Last Admin: 03/26/20 15:50 Dose: 999 mls/hr Documented by: Potassium Chloride/Sodium Chloride (Normal Saline With 20 Meq Kcl) 1,000 mls @ 100 mls/hr IV ASDIRECTED [facility] Last Admin: 03/26/20 21:39 Dose: 100 mls/hr Documented by: Levothyroxine Sodium (Synthroid) 175 mcg PO ACBRK [facility] Last Admin: 03/27/20 08:58 Dose: Not Given Documented by: Non-Formulary Medication (Budesonide/Formoterol Fumarate [Symbicort 80-4.5 Mcg]) 2 puff INH BID [facility] Potassium Chloride (Klor-Con 10) 20 meq PO ONETIME ONE Stop: 03/26/20 17:34 Last Admin: 03/26/20 19:46 Dose: Not Given Documented by: - Exam General: Alert, Oriented Neck: Supple Lungs: Clear to Auscultation, Normal Respiratory Effort Cardiovascular: Regular Rate, Regular Rhythm GI/Abdominal Exam: Normal Bowel Sounds, Soft, Non-Tender Extremities: Pedal Edema Neurological: No New Focal Deficit Psy/Mental Status: Alert, Normal Affect, Normal Mood Sepsis Event Note - Evaluation Sepsis Screening Result: Severe Sepsis Risk - Focused Exam Vital Signs: Vital Signs Temp Pulse Resp BP Pulse Ox 03/27/20 08:36 73 03/27/20 08:00 96.5 F L 74 20 109/42 L 96 03/27/20 04:00 96.4 F L 75 20 149/58 H 98 03/27/20 01:53 90 03/27/20 01:50 88 Date Exam was Performed: 03/27/20 Time Exam was Performed: 09:39 - Problem List & Annotations (1) Hypertension SNOMED Code(s): 97649949 Code(s): I10 - ESSENTIAL (PRIMARY) HYPERTENSION Status: Acute Current Visit: Yes (2) Anemia SNOMED Code(s): 834700116 Code(s): D64.9 - ANEMIA, UNSPECIFIED Status: Acute Current Visit: Yes (3) Depression SNOMED Code(s): 63215684 Code(s): F32.9 - MAJOR DEPRESSIVE DISORDER, SINGLE EPISODE, UNSPECIFIED Status: Acute Current Visit: Yes (4) COPD (chronic obstructive pulmonary disease) SNOMED Code(s): 47559562 Code(s): J44.9 - CHRONIC OBSTRUCTIVE PULMONARY DISEASE, UNSPECIFIED Status: Acute Current Visit: Yes (5) Diabetes SNOMED Code(s): 58507360 Code(s): E11.9 - TYPE 2 DIABETES MELLITUS WITHOUT COMPLICATIONS Status: Acute Current Visit: Yes (6) Abdominal pain SNOMED Code(s): 05027077 Code(s): R10.9 - UNSPECIFIED ABDOMINAL PAIN Status: Acute Current Visit: No Qualifiers: Abdominal location: upper abdomen, unspecified Qualified Code(s): R10.10 - Upper abdominal pain, unspecified (7) CVA, Cerebrovascular accident SNOMED Code(s): 782129432 Code(s): I63.9 - CEREBRAL INFARCTION, UNSPECIFIED Status: Acute Current Visit: No (8) Diarrhea SNOMED Code(s): 75013993 Code(s): R19.7 - DIARRHEA, UNSPECIFIED Status: Acute Current Visit: No (9) Hypokalemia SNOMED Code(s): 04565960 Code(s): E87.6 - HYPOKALEMIA Status: Acute Current Visit: No (10) Lactic acidosis SNOMED Code(s): 08448188 Code(s): E87.2 - ACIDOSIS Status: Acute Current Visit: No - Problem List Review Problem List Initiated/Reviewed/Updated: Yes - My Orders Last 24 Hours: My Active Orders 03/26/20 17:11 Isolation [COMM] Stat 03/26/20 17:12 Loperamide [Imodium] 2 mg PO Q6H PRN 03/26/20 17:14 Tiotropium [Spiriva HandiHaler] DOSE mcg INH DAILY PRN hydrOXYzine HCL [Atarax] 25 mg PO TID PRN 03/26/20 17:24 RT Post Treatment Assessment [RC] .PRN RT Pre-Treatment Assessment [RC] .PRN 03/26/20 17:26 Glucose [Blood Glucose Check, Bedside] [RC] QIDACANDBED Oxygen Therapy [RC] .PRN Up With Assistance [RC] ASDIRECTED VTE/DVT Education [RC] PER UNIT ROUTINE Vital Signs [RC] 00,04,08,12,16,20 Acetaminophen [Tylenol] 650 mg PO Q4H PRN Morphine Sulfate [Morphine] 1 mg IVPUSH Q2H PRN Sodium Chloride 0.9% [Saline Flush] 10 ml FLUSH ASDIRECTED PRN oxyCODONE 5 mg PO Q4H PRN Peripheral IV Insertion Adult [OM.PC] Routine Resuscitation Status Routine 03/26/20 17:27 Antiembolic Devices [RC] 08,20 Antiembolic Hose [OM.PC] Per Unit Routine 03/26/20 18:40 CLOSTRIDIUM DIFFICILE TOX RFLX [MREF] Routine 03/26/20 20:16 RT Post Treatment Assessment [RC] Click to Edit RT Pre-Treatment Assessment [RC] Click to Edit 03/26/20 20:47 RT Post Treatment Assessment [RC] Click to Edit RT Pre-Treatment Assessment [RC] Click to Edit 03/26/20 21:00 ClonazePAM [KlonoPIN] 0.5 mg PO BID DULoxetine [Cymbalta] 60 mg PO BID Insulin Glarg,Human.Rec.Analog [LantUS] 80 unit SUBCUT BEDTIME Insulin Lispro [HumaLOG] See Protocol SUBCUT QIDACANDBED Nystatin [Mycostatin] 5 ml PO QID Psyllium [Metamucil] 1.04 gm PO TID traZODone 25 mg PO BEDTIME 03/26/20 21:16 RT Aerosol Therapy [RC] ASDIRECTED Albuterol/Ipratropium [DuoNeb 3.0-0.5 MG/3 ML] 3 ml NEB Q4H PRN 03/26/20 21:53 Ondansetron [Zofran ODT] 8 mg PO Q8H PRN Prochlorperazine [Compazine] 10 mg PO Q6H PRN 03/26/20 22:00 Heparin Sodium 5,000 units SUBCUT Q8HR Mirtazapine [Remeron] 15 mg PO BEDTIME Potassium Chloride [Klor-Con 10] 20 meq PO BID 03/27/20 04:33 RT Aerosol Therapy [RC] ASDIRECTED 03/27/20 06:00 Levothyroxine 75 mcg PO ACBRK Levothyroxine [Synthroid] 100 mcg PO ACBRK 03/27/20 07:00 Budesonide [Pulmicort] 0.5 mg NEB BIDRT 03/27/20 08:00 Insulin Aspart [NovoLOG] 16 unit SQ TIDMEALS 03/27/20 09:00 Aspirin [Halfprin] 81 mg PO DAILY Clopidogrel [Plavix] 75 mg PO DAILY Furosemide [Lasix] 40 mg PO BID Pantoprazole [ProTONIX] 40 mg PO DAILY Valsartan [Valsartan] 1 tab PO DAILY amLODIPine [Norvasc] 5 mg PO DAILY 03/28/20 05:15 BASIC METABOLIC PANEL,BMP [CHEM] AM CBC WITH AUTO DIFF [HEME] AM - Plan Plan:: 69-year-old with a history of hypertension, prior stroke, diabetes, COPD, obesity, lung cancer on chemotherapy. Presented with 4 weeks history of on and off diarrhea. Imodium is not helping. Associated with nausea and vomiting. Diarrhea Likely related to chemotherapy Check stool culture, check stool for C. difficile Use Imodium Started Metamucil Consider sucralfate if no improvement Lactic acidosis Likely related to diarrhea Hydrated well Resolved Stop IV fluids History of prior stroke Continue aspirin, Plavix Anxiety Treat with clonazepam, temazepam, Cymbalta Diabetes Treat with Humalog with meals and Levemir at bedtime Hold metformin since that might have contributed to diarrhea Follow blood sugars use supplemental insulin as needed COPD Treat with Pulmicort, DuoNeb Hypertension Continue losartan, norvasc Follow renal function with hydration Anemia Likely secondary to chemotherapy Expect a drop with hydration Might need transfusion CODE STATUS was discussed with the patient Wish DNR CODE STATUS
[2020-03-27] MEDS: Furosemide 40 MG Tab PO SCH ×2 (10:04→13:40)
[2020-03-27] MEDS: Aspirin 81 MG Tab.EC PO SCH (10:05)
[2020-03-27] MEDS: Clopidogrel 75 MG Tab PO SCH (10:05)
[2020-03-27] MEDS ORDERED: PROCHLORPERAZINE 10 MG PO PRN (10:21)
[2020-03-27] MEDS ORDERED: ONDANSETRON 8 MG PO PRN (10:22)
[2020-03-27] MEDS: amLODIPine 5 MG Tab PO SCH (10:31)
[2020-03-27] MEDS: Losartan 50 MG Tab PO SCH (10:35)
[2020-03-27] MEDS: HYDROXYZINE HCL 25 MG PO PRN (17:17)
[2020-03-27] MEDS: traZODone 50 MG Tab PO SCH (21:51)
[2020-03-27] MEDS: Insulin Glarg,Human.Rec.Analog 100 Unit/ML SUBCUT SCH (21:56)
[2020-03-27] MEDS: MIRTAZAPINE 15 MG PO SCH (22:00)
[2020-03-28] MEDS: Pantoprazole 40 MG Tab.CR PO SCH (05:59)
[2020-03-28] MEDS: Heparin Sodium 5,000 Units/ML Vial SUBCUT SCH ×3 (05:59→22:46)
[2020-03-28] MEDS: Levothyroxine 100 MCG Tab PO SCH (06:00)
[2020-03-28 07:37] LABS: ANION GAP 12.3 mEq/L (7-13)
[2020-03-28] MEDS: Insulin Lispro 100 Units/ML 3 ML Vial SUBCUT SCH ×7 (07:39→22:43)
[2020-03-28] MEDS: Albuterol/Ipratropium 3.0-0.5 MG/3 ML Neb Soln NEB PRN (07:46)
[2020-03-28] MEDS: Tiotropium Inhaler 18 MCG Inhalation Powder Cap Kit of 5 INH SCH (08:23)
[2020-03-28] MEDS: Furosemide 40 MG Tab PO SCH ×2 (08:24→13:36)
[2020-03-28] MEDS: amLODIPine 5 MG Tab PO SCH (08:24)
[2020-03-28] MEDS: Aspirin 81 MG Tab.EC PO SCH (08:24)
[2020-03-28] MEDS: ClonazePAM 0.5 MG Tab PO SCH ×2 (08:25→22:44)
[2020-03-28] MEDS: Clopidogrel 75 MG Tab PO SCH (08:25)
[2020-03-28] MEDS: Potassium Chloride 10 MEQ Tab.ER PO SCH ×3 (08:25→22:44)
[2020-03-28] MEDS: DULoxetine 30 MG Cap PO SCH ×2 (08:25→22:42)
[2020-03-28] MEDS: Nystatin Susp 100,000 Unit/ML 5 ML UD Cup PO SCH ×4 (08:25→22:45)
[2020-03-28] MEDS: Psyllium 0.52 GM Cap PO SCH ×3 (08:25→22:45)
[2020-03-28] MEDS: Losartan 50 MG Tab PO SCH (08:25)
[2020-03-28] MEDS: Acetaminophen 325 MG Tab PO PRN (13:34)
[2020-03-28] MEDS: HYDROXYZINE HCL 25 MG PO PRN (13:47)
[2020-03-28] MEDS: Budesonide 0.5 MG/2 ML Neb Susp NEB SCH (17:16)
[2020-03-28] MEDS: traZODone 50 MG Tab PO SCH (22:12)
[2020-03-28] MEDS: Insulin Glarg,Human.Rec.Analog 100 Unit/ML SUBCUT SCH (22:44)
[2020-03-28] MEDS: MIRTAZAPINE 15 MG PO SCH (22:46)
[2020-03-29] MEDS: Albuterol/Ipratropium 3.0-0.5 MG/3 ML Neb Soln NEB PRN (02:20)
[2020-03-29] MEDS: Acetaminophen 325 MG Tab PO PRN (03:24)
[2020-03-29] MEDS: Heparin Sodium 5,000 Units/ML Vial SUBCUT SCH (06:05)
[2020-03-29] MEDS: Pantoprazole 40 MG Tab.CR PO SCH (06:44)
[2020-03-29] MEDS: Levothyroxine 100 MCG Tab PO SCH (06:44)
[2020-03-29 07:11] LABS: ANION GAP 10.2 mEq/L (7-13)
[2020-03-29] MEDS: Budesonide 0.5 MG/2 ML Neb Susp NEB SCH ×2 (07:25→07:45)
[2020-03-29] MEDS: Insulin Lispro 100 Units/ML 3 ML Vial SUBCUT SCH ×4 (08:14→13:08)
[2020-03-29] MEDS: Clopidogrel 75 MG Tab PO SCH (08:55)
[2020-03-29] MEDS: Psyllium 0.52 GM Cap PO SCH (08:55)
[2020-03-29] MEDS: Aspirin 81 MG Tab.EC PO SCH (08:55)
[2020-03-29] MEDS: ClonazePAM 0.5 MG Tab PO SCH (08:55)
[2020-03-29] MEDS: DULoxetine 30 MG Cap PO SCH (08:56)
[2020-03-29] MEDS: Potassium Chloride 10 MEQ Tab.ER PO SCH (08:56)
[2020-03-29] MEDS: Furosemide 40 MG Tab PO SCH (08:56)
[2020-03-29] MEDS: Nystatin Susp 100,000 Unit/ML 5 ML UD Cup PO SCH (08:57)
[2020-03-29] MEDS: amLODIPine 5 MG Tab PO SCH (09:01)
[2020-03-29] MEDS: Losartan 50 MG Tab PO SCH (09:01)
[2020-03-29] MEDS: Tiotropium Inhaler 18 MCG Inhalation Powder Cap Kit of 5 INH SCH (09:02)
--- NOTE | 2020-03-29 10:42 | PCM.DCSUM1 ---
Discharge Summary - Hospital Course Free Text/Narrative:: 69-year-old with a history of hypertension, prior stroke, diabetes, COPD, obesity, lung cancer on chemotherapy. Presented with 4 weeks history of on and off diarrhea. Imodium is not helping. Associated with nausea and vomiting. Diarrhea Likely related to chemotherapy possibly due to Metformin negative stool culture, check stool for C. difficile Use Imodium Metamucil prn Lactic acidosis Likely related to diarrhea Hydrated well Resolved History of prior stroke Continue aspirin, Plavix Anxiety Treat with clonazepam, temazepam, Cymbalta Diabetes Treat with Humalog with meals and Levemir at bedtime Hold metformin since that might have contributed to diarrhea COPD Treat with symbicort Hypertension, hypokalemia Continue losartan, norvasc resume diuretics with K supplement Anemia Likely secondary to chemotherapy will f/up with Oncology next week Diagnosis: Stroke: No - Discharge Data Discharge Date: 03/29/20 Discharge Disposition: Home, Self-Care 01 Condition: Good - Referral to Home Health Primary Care Physician: PCP Unobtainable - Discharge Diagnosis/Problem(s) (1) Hypertension SNOMED Code(s): 23355117 ICD Code: I10 - ESSENTIAL (PRIMARY) HYPERTENSION Status: Acute Current Visit: Yes (2) Anemia SNOMED Code(s): 007293805 ICD Code: D64.9 - ANEMIA, UNSPECIFIED Status: Acute Current Visit: Yes (3) Depression SNOMED Code(s): 91500877 ICD Code: F32.9 - MAJOR DEPRESSIVE DISORDER, SINGLE EPISODE, UNSPECIFIED Status: Acute Current Visit: Yes (4) COPD (chronic obstructive pulmonary disease) SNOMED Code(s): 91281190 ICD Code: J44.9 - CHRONIC OBSTRUCTIVE PULMONARY DISEASE, UNSPECIFIED Status: Acute Current Visit: Yes (5) Diabetes SNOMED Code(s): 60852241 ICD Code: E11.9 - TYPE 2 DIABETES MELLITUS WITHOUT COMPLICATIONS Status: Acute Current Visit: Yes (6) Abdominal pain SNOMED Code(s): 32582667 ICD Code: R10.9 - UNSPECIFIED ABDOMINAL PAIN Status: Acute Current Visit: No Qualifiers: Abdominal location: upper abdomen, unspecified Qualified Code(s): R10.10 - Upper abdominal pain, unspecified (7) CVA, Cerebrovascular accident SNOMED Code(s): 109557373 ICD Code: I63.9 - CEREBRAL INFARCTION, UNSPECIFIED Status: Acute Current Visit: No (8) Diarrhea SNOMED Code(s): 13427116 ICD Code: R19.7 - DIARRHEA, UNSPECIFIED Status: Acute Current Visit: No (9) Hypokalemia SNOMED Code(s): 44211330 ICD Code: E87.6 - HYPOKALEMIA Status: Acute Current Visit: No (10) Lactic acidosis SNOMED Code(s): 85300293 ICD Code: E87.2 - ACIDOSIS Status: Acute Current Visit: No - Patient Instructions Diet: Heart Healthy Diet Activity: As Tolerated - Discharge Plan *PRESCRIPTION DRUG MONITORING PROGRAM REVIEWED*: No *COPY OF PRESCRIPTION DRUG MONITORING REPORT IN PATIENT MACIE: No Home Medications: Home Meds Acetaminophen [Tylenol Extra Strength] 500 tab PO DAILY PRN 09/05/13 [History] Calcium Carbonate/Vitamin D3 [Calcium 250+D] 500 mg PO BID 09/05/13 [History] Clopidogrel [Plavix] 75 mg PO DAILY 09/05/13 [History] Diclofenac Sodium [Voltaren 1% Gel] 1 applic TOP ASDIRECTED PRN 09/05/13 [History] Loperamide [Imodium] 2 mg PO DAILY PRN 09/05/13 [History] Mirtazapine [Remeron] 15 mg PO BEDTIME 09/05/13 [History] amLODIPine [Norvasc] 5 mg PO DAILY 09/05/13 [History] Colesevelam [Welchol] 1,875 mg PO BID 11/12/13 [History] DULoxetine [Cymbalta] 60 mg PO BID 11/12/13 [History] Insulin Aspart [NovoLOG] 20 unit SQ TIDMEALS 05/14/16 [History] Aspirin [Adult Low Dose Aspirin EC] 81 mg PO DAILY 03/08/18 [History] Insulin Detemir [Levemir Flextouch] 80 units INJECT BEDTIME 03/08/18 [History] Nitroglycerin [Nitrostat] 0.4 mg PO ASDIRECTED 03/08/18 [History] Nystatin 5 ml PO QID PRN 03/08/18 [History] Pantoprazole [ProTONIX] 40 mg PO BID 03/08/18 [History] Potassium Chloride 1 tab PO BID 03/08/18 [History] hydrOXYzine HCL [hydrOXYzine] 25 mg PO TID PRN 03/08/18 [History] traZODone HCl [Trazodone HCl] 25 mg PO BEDTIME 03/08/18 [History] ClonazePAM [KlonoPIN] 0.5 mg PO BID PRN 03/09/18 [History] Albuterol [Ventolin HFA] 2 puff INH Q4HR PRN 03/26/20 [History] Diphenoxylate HCl/Atropine [Diphenoxylate-Atrop 2.5-0.025] 1 each PO QID PRN 03/26/20 [History] Lidocaine/Prilocaine [EMLA Crm] 1 applic TOP .ASNEEDED PRN 03/26/20 [History] Ondansetron [Zofran] 8 mg PO Q8H PRN 03/26/20 [History] Prochlorperazine [Compazine] 10 mg PO Q6H PRN 03/26/20 [History] Budesonide/Formoterol [Symbicort 160-4.5 MCG] 2 puff INH BID 03/27/20 [History] Furosemide [Lasix] 40 mg PO BID 03/27/20 [History] Levothyroxine 200 mcg PO ACBREAKFAST 03/27/20 [History] Losartan [Cozaar] 50 mg PO DAILY 03/27/20 [History] Umeclidinium [place] [Incruse Ellipta*] 1 puff INH DAILY 03/27/20 [History] Tiotropium [Spiriva HandiHaler] 0 mcg INH DAILY cap 03/29/20 [Rx] Forms: ED Department Discharge Referrals: Bashir Munoz MD [Physician] - - Discharge Summary/Plan Comment DC Time >30 min.: No - General Info Date of Service: 03/29/20 Functional Status: Reports: Pain Controlled - Review of Systems General: Denies: Fever Pulmonary: Denies: Shortness of Breath Cardiovascular: Reports: Edema. Denies: Chest Pain Gastrointestinal: Denies: Abdominal Pain, Diarrhea (Resolved) Genitourinary: Denies: Dysuria Neurological: Denies: Confusion - Patient Data Vitals - Most Recent: Last Vital Signs Temp 97.1 F 03/29/20 08:00 Pulse 76 03/29/20 08:00 Resp 14 03/29/20 08:00 BP 119/44 L 03/29/20 09:01 Pulse Ox 94 L 03/29/20 08:00 Weight - Most Recent: 283 lb 6.4 oz I&O - Last 24 hours: Intake & Output 03/28/20 03/29/20 03/29/20 22:59 06:59 14:59 Intake Total 480 420 230 Balance 480 420 230 Lab Results - Last 24 hrs: Laboratory Results - last 24 hr 03/28/20 03/28/20 03/28/20 Range/Units 11:26 16:46 21:03 Sodium (136-145) mmol/L Potassium (3.5-5.1) mmol/L Chloride (98-107) mmol/L Carbon Dioxide (21-32) mmol/L Anion Gap (7-13) mEq/L BUN (7-18) mg/dL Creatinine (0.55-1.02) mg/dL Est Cr Clr Drug Dosing mL/min Estimated GFR (MDRD) Glucose (74-99) mg/dL POC Glucose 135 H 94 133 H (70-105) mg/dl Calcium (8.5-10.1) mg/dL 03/29/20 03/29/20 Range/Units 06:25 07:53 Sodium 141 (136-145) mmol/L Potassium 3.2 L (3.5-5.1) mmol/L Chloride 106 (98-107) mmol/L Carbon Dioxide 28 (21-32) mmol/L Anion Gap 10.2 (7-13) mEq/L BUN 11 (7-18) mg/dL Creatinine 1.13 H (0.55-1.02) mg/dL Est Cr Clr Drug Dosing 34.23 mL/min Estimated GFR (MDRD) 48 Glucose 71 L (74-99) mg/dL POC Glucose 72 (70-105) mg/dl Calcium 7.5 L (8.5-10.1) mg/dL ADAMA Results - Last 24 hrs: Microbiology 03/26/20 18:40 Stool Culture - Final Stool / Feces NORMAL ENTERIC GREGG. NO SALMONELLA, SHIGELLA, CAMPYLOBACTER OR E.COLI O157 ISOLATED. 03/26/20 18:40 Shiga Toxin I & II - Final Stool / Feces 03/26/20 18:40 Clostridioides difficile (PCR) - Final Stool / Feces Clostridioides difficile Toxin Assay - Final Med Orders - Current: Current Medications Acetaminophen (Tylenol) 650 mg PO Q4H PRN PRN Reason: Pain (Mild 1-3)/fever Last Admin: 03/29/20 03:24 Dose: 650 mg Documented by: Albuterol/Ipratropium (Duoneb 3.0-0.5 Mg/3 Ml) 3 ml NEB Q4H PRN PRN Reason: sob Last Admin: 03/29/20 02:20 Dose: 3 ml Documented by: Amlodipine Besylate (Norvasc) 5 mg PO DAILY [facility] Last Admin: 03/29/20 09:01 Dose: 5 mg Documented by: Aspirin (Halfprin) 81 mg PO DAILY [facility] Last Admin: 03/29/20 08:55 Dose: 81 mg Documented by: Budesonide (Pulmicort) 0.5 mg NEB BIDRT [facility] Last Admin: 03/29/20 07:45 Dose: 0.5 mg Documented by: Clonazepam (Klonopin) 0.5 mg PO BID [facility] Last Admin: 03/29/20 08:55 Dose: 0.5 mg Documented by: Clopidogrel Bisulfate (Plavix) 75 mg PO DAILY [facility] Last Admin: 03/29/20 08:55 Dose: 75 mg Documented by: Duloxetine HCl (Cymbalta) 60 mg PO BID [facility] Last Admin: 03/29/20 08:56 Dose: 60 mg Documented by: Furosemide (Lasix) 40 mg PO BIDDIURETIC [facility] Last Admin: 03/29/20 08:56 Dose: 40 mg Documented by: Heparin Sodium (Porcine) (Heparin Sodium) 5,000 units SUBCUT Q8HR [facility] Last Admin: 03/29/20 06:05 Dose: Not Given Documented by: Hydroxyzine HCl (Atarax) 25 mg PO TID PRN PRN Reason: Itching Last Admin: 03/28/20 13:47 Dose: 25 mg Documented by: Insulin Glargine (Lantus) 80 unit SUBCUT BEDTIME [facility] Last Admin: 03/28/20 22:44 Dose: Not Given Documented by: Insulin Human Lispro (Humalog) 16 unit SUBCUT TIDMEALS [facility] Last Admin: 03/29/20 08:54 Dose: Not Given Documented by: Insulin Human Lispro (Humalog) 0 unit SUBCUT QIDACANDBED [facility]; Protocol Last Admin: 03/29/20 08:14 Dose: Not Given Documented by: Levothyroxine Sodium (Synthroid) 200 mcg PO ACBRK [facility] Last Admin: 03/29/20 06:44 Dose: 200 mcg Documented by: Loperamide HCl (Imodium) 2 mg PO Q6H PRN PRN Reason: Diarrhea Last Admin: 03/26/20 21:38 Dose: 2 mg Documented by: Losartan Potassium (Cozaar) 50 mg PO DAILY [facility] Last Admin: 03/29/20 09:01 Dose: 50 mg Documented by: Mirtazapine (Remeron) 15 mg PO BEDTIME [facility] Last Admin: 03/28/20 22:46 Dose: Not Given Documented by: Morphine Sulfate (Morphine) 1 mg IVPUSH Q2H PRN PRN Reason: Pain (severe 7-10) Nystatin (Mycostatin) 5 ml PO QID [facility] Last Admin: 03/29/20 08:57 Dose: 5 ml Documented by: Oxycodone HCl (Oxycodone) 5 mg PO Q4H PRN PRN Reason: Pain (moderate 4-6) Pantoprazole Sodium (Protonix) 40 mg PO ACBREAKFAST [facility] Last Admin: 03/29/20 06:44 Dose: 40 mg Documented by: Ondansetron (Zofran) (8 Mg Tab *Own Med*) 0 each PO Q8H PRN PRN Reason: Nausea Potassium Chloride (Klor-Con 10) 20 meq PO TID [facility] Last Admin: 03/29/20 08:56 Dose: 20 meq Documented by: Potassium Chloride (Klor-Con 10) 40 meq PO ONETIME ONE Stop: 03/29/20 10:34 Prochlorperazine Maleate (Compazine) 10 mg PO Q6H PRN PRN Reason: Nausea Psyllium Hydrophilic Mucilloid (Metamucil) 1.04 gm PO TID [facility] Last Admin: 03/29/20 08:55 Dose: 1.04 gm Documented by: Sodium Chloride (Saline Flush) 10 ml FLUSH ASDIRECTED PRN PRN Reason: Keep Vein Open Tiotropium [place] (Spiriva Handihaler) 0 mcg INH DAILY [facility] Last Admin: 03/29/20 09:02 Dose: 1 cap Documented by: Trazodone HCl (Trazodone) 25 mg PO BEDTIME [facility] Last Admin: 03/28/20 22:12 Dose: 25 mg Documented by: Discontinued Medications Albuterol (Proventil Hfa) gm INH Q4HR PRN PRN Reason: Wheezing Albuterol (Proventil Hfa) gm INH Q4HR PRN PRN Reason: Wheezing Albuterol/Ipratropium (Duoneb 3.0-0.5 Mg/3 Ml) 3 ml NEB ONETIME ONE Stop: 03/27/20 04:34 Last Admin: 03/27/20 04:45 Dose: 3 ml Documented by: Hydroxyzine HCl (Atarax) 25 mg PO TID PRN PRN Reason: Itching Sodium Chloride (Normal Saline) 1,000 mls @ 999 mls/hr IV .BOLUS ONE Stop: 03/26/20 16:09 Last Admin: 03/26/20 15:50 Dose: 999 mls/hr Documented by: Potassium Chloride/Sodium Chloride (Normal Saline With 20 Meq Kcl) 1,000 mls @ 100 mls/hr IV ASDIRECTED [facility] Last Admin: 03/26/20 21:39 Dose: 100 mls/hr Documented by: Levothyroxine Sodium (Synthroid) 175 mcg PO [facility] Last Admin: 03/27/20 08:58 Dose: Not Given Documented by: Levothyroxine Sodium (Synthroid) 100 mcg PO [facility] Last Admin: 03/27/20 06:44 Dose: 100 mcg Documented by: Levothyroxine Sodium (Levothyroxine) 75 mcg PO [facility] Last Admin: 03/27/20 06:44 Dose: 75 mcg Documented by: Mirtazapine (Remeron) 15 mg PO BEDTIME [facility] Last Admin: 03/26/20 22:45 Dose: 15 mg Documented by: Non-Formulary Medication (Budesonide/Formoterol Fumarate [Symbicort 80-4.5 Mcg]) 2 puff INH BID [facility] Non-Formulary Medication (Valsartan [Valsartan]) 1 tab PO DAILY [facility] Last Admin: 03/29/20 07:25 Dose: Not Given Documented by: Ondansetron HCl (Zofran Odt) 8 mg PO Q8H PRN PRN Reason: Nausea Potassium Chloride (Klor-Con 10) 20 meq PO BID [facility] Last Admin: 03/28/20 08:25 Dose: 20 meq Documented by: Potassium Chloride (Klor-Con 10) 20 meq PO ONETIME ONE Stop: 03/26/20 17:34 Last Admin: 03/26/20 19:46 Dose: Not Given Documented by: Prochlorperazine Maleate (Compazine) 10 mg PO Q6H PRN PRN Reason: Nausea - Exam General: Reports: Alert, Oriented Neck: Reports: Supple Lungs: Reports: Clear to Auscultation, Normal Respiratory Effort Cardiovascular: Reports: Regular Rate, Regular Rhythm GI/Abdominal Exam: Normal Bowel Sounds, Soft, Non-Tender Extremities: Pedal Edema Skin: Reports: Warm, Dry Psy/Mental Status: Reports: Alert, Normal Affect, Normal Mood
[2020-03-29] MEDS ORDERED: Potassium Chloride 10 MEQ Tab.ER PO ONE (11:00)
[2020-03-29 13:11] VITALS: BP 147/61; PULSE 71
== END 2020-03-29 12:45 | disposition home or self-care (01) ==
LOC: DL.ED 14:39 → DL.MS 16:17
PROVIDERS: ADMIT Internal Medicine; ATTEND Internal Medicine
DX: R19.7 Diarrhea, unspecified (principal); E87.2 Acidosis; I10 Essential (primary) hypertension; E11.9 Type 2 diabetes mellitus without complications; J44.9 Chronic obstructive pulmonary disease, unspecified; E66.9 Obesity, unspecified; C34.91 Malignant neoplasm of unspecified part of right bronchus or lung; C34.92 Malignant neoplasm of unspecified part of left bronchus or lung; F41.9 Anxiety disorder, unspecified; E87.6 Hypokalemia; D64.9 Anemia, unspecified; F32.9 Major depressive disorder, single episode, unspecified; I25.10 Atherosclerotic heart disease of native coronary artery without angina pectoris; E78.00 Pure hypercholesterolemia, unspecified; G47.30 Sleep apnea, unspecified; K21.9 Gastro-esophageal reflux disease without esophagitis; E03.9 Hypothyroidism, unspecified; M19.90 Unspecified osteoarthritis, unspecified site; R10.10 Upper abdominal pain, unspecified; E86.0 Dehydration; M79.7 Fibromyalgia; Z86.73 Personal history of transient ischemic attack (TIA), and cerebral infarction without residual deficits; Z79.82 Long term (current) use of aspirin; Z79.02 Long term (current) use of antithrombotics/antiplatelets; Z79.4 Long term (current) use of insulin; Z79.899 Other long term (current) drug therapy; Z79.51 Long term (current) use of inhaled steroids; Z88.8 Allergy status to other drugs, medicaments and biological substances; Z88.2 Allergy status to sulfonamides; Z91.011 Allergy to milk products; Z90.49 Acquired absence of other specified parts of digestive tract; Z88.5 Allergy status to narcotic agent; Z68.43 Body mass index [BMI] 50.0-59.9, adult; Z79.890 Hormone replacement therapy
CPT/HCPCS: 36415; 80048; 80053; 81001; 82962; 83605; 85025; 86140; 87045; 87046; 87493; 87899; 94640; 96361; 96365; 96366; 96372; 99285; A9270; G0378; J1642; J1644; J1815; J3480; J7030; 96360; 99284; J7620-GY

== ENCOUNTER 2021-01-14 07:46 | Emergency (ER) | payer MEDICARE, MEDICAID ==
[2021-01-14] MEDS ORDERED: Albuterol/Ipratropium 3.0-0.5 MG/3 ML Neb Soln NEB ONE (08:36)
[2021-01-14] MEDS ORDERED: methylPREDNISolone Sodium Succinate 125 MG/2 ML SDV IVPUSH ONE (08:36)
[2021-01-14 08:42] VITALS: BP 121/41; PULSE 72
[2021-01-14 09:04] LABS: PTT,PARTIAL THROMBOPLSTIN TIME 24.9 SEC (22.0-34.0)
[2021-01-14 09:08] LABS: CHLORIDE,CL 99 mmol/L (98-107); SODIUM,NA 135 mmol/L (136-145)
--- NOTE | 2021-01-14 09:16 | EDM.PDOC ---
ED HPI GENERAL MEDICAL PROBLEM - General Chief Complaint: Respiratory Problem Stated Complaint: BY AMBULANCE Time Seen by Provider: 01/14/21 08:30 Source of Information: Reports: Patient, Old Records, RN, RN Notes Reviewed History Limitations: Reports: No Limitations - History of Present Illness INITIAL COMMENTS - FREE TEXT/NARRATIVE: Patient presents to the ED via [facility] with complaints of shortness of breath. The patient reports a history of lung cancer for which she has received multiple rounds of radiation and chemotherapy; her last radiation was last month and her last chemo was in April 2020. She states her latest scans in September 2020 showed worsening lesions with small-cell in the left lung and squamous cell in the right lung. She denies surgical interventions for these lesions. The patient reports her difficulty breathing began two days ago, 01/14/21. She has required albuterol nebulizer BID, which she does not normally take. She typically takes Incruse, daily. She denies recent illness, fever, shaking chills, palpitations, nausea, vomiting, or diarrhea. She does attest to transient left, lateral chest pain with this shortness of breath; she is not currently experiencing chest pain. She denies a history of COVID infection and has received two doses of a COVID vaccine. She denies tobacco, alcohol, or recreational drug use. Left Chest Pain Score (Numeric/FACES): 7 - Related Data Allergies Allergy/AdvReac Type Severity Reaction Status Date / Time acetaminophen Allergy Rash Verified 03/26/20 14:55 [From Darvocet-N 100] atorvastatin calcium Allergy Cannot Verified 03/26/20 14:55 [From Lipitor] Remember cephalexin [From Keflex] Allergy Swelling Verified 03/26/20 14:55 codeine Allergy Nausea and Verified 03/26/20 14:55 Vomiting lansoprazole [From Prevacid] Allergy Rash Verified 03/26/20 14:55 levofloxacin [From Levaquin] Allergy Blisters Verified 03/26/20 14:55 propoxyphene napsylate Allergy Rash Verified 03/26/20 14:55 [From Darvocet-N 100] Sulfa (Sulfonamide Allergy Cannot Verified 03/26/20 14:55 Antibiotics) Remember tramadol HCl [From Ultram] Allergy Rash Verified 03/26/20 14:55 Milk Allergy Diarrhea Uncoded 09/11/19 12:18 Home Meds: Home Meds Acetaminophen [Tylenol Extra Strength] 500 tab PO DAILY PRN 09/05/13 [History] Calcium Carbonate/Vitamin D3 [Calcium 250+D] 500 mg PO BID 09/05/13 [History] Clopidogrel [Plavix] 75 mg PO DAILY 09/05/13 [History] Diclofenac Sodium [Voltaren 1% Gel] 1 applic TOP ASDIRECTED PRN 09/05/13 [History] Loperamide [Imodium] 2 mg PO DAILY PRN 09/05/13 [History] Mirtazapine [Remeron] 15 mg PO BEDTIME 09/05/13 [History] amLODIPine [Norvasc] 5 mg PO DAILY 09/05/13 [History] Colesevelam [Welchol] 1,875 mg PO BID 11/12/13 [History] DULoxetine [Cymbalta] 60 mg PO BID 11/12/13 [History] Insulin Aspart [NovoLOG] 35 unit SQ TIDMEALS 05/14/16 [History] Aspirin [Adult Low Dose Aspirin EC] 81 mg PO DAILY 03/08/18 [History] Insulin Detemir [Levemir Flextouch] 48 units INJECT BID 03/08/18 [History] Nitroglycerin [Nitrostat] 0.4 mg PO ASDIRECTED 03/08/18 [History] Nystatin 5 ml PO QID PRN 03/08/18 [History] Pantoprazole [ProTONIX] 40 mg PO BID 03/08/18 [History] Potassium Chloride 1 tab PO BID 03/08/18 [History] ClonazePAM [KlonoPIN] 0.5 mg PO BID PRN 03/09/18 [History] Albuterol [Ventolin HFA] 2 puff INH Q4HR PRN 03/26/20 [History] Diphenoxylate HCl/Atropine [Diphenoxylate-Atrop 2.5-0.025] 1 each PO QID PRN 03/26/20 [History] Lidocaine/Prilocaine [EMLA Crm] 1 applic TOP .ASNEEDED PRN 03/26/20 [History] Furosemide [Lasix] 40 mg PO BID 03/27/20 [History] Levothyroxine 200 mcg PO ACBREAKFAST 03/27/20 [History] Losartan [Cozaar] 50 mg PO DAILY 03/27/20 [History] Umeclidinium [employer] [Incruse Ellipta*] 1 puff INH DAILY 03/27/20 [History] Past Medical History HEENT History: Reports: Epistaxis, Impaired Vision, Other (See Below) Cardiovascular History: Reports: CAD, High Cholesterol, Hypertension, SOB on Exertion, Other (See Below) Other Cardiovascular History: ISCHEMIC HEART DIESASE Respiratory History: Reports: COPD, Sleep Apnea, Other (See Below) Other Respiratory History: Left sided small cell aggresive cancer; right side squamous cell carcinoma Gastrointestinal History: Reports: Diverticulosis, GERD, Hemorrhoids, Hiatal Hernia, Irritable Bowel Syndrome Other Gastrointestinal History: Focal nodular hyperplasia of liver. HX OF HEPATATIC LESION Genitourinary History: Reports: Renal Calculus, Urinary Incontinence Other [employer] History: cervical cancer in 1980. Post menopausal HRT Musculoskeletal History: Reports: Fibromyalgia, Osteoarthritis, Other (See Below) Neurological History: Reports: Cerebral Aneurysms, CVA Other Neuro History: Embolic stroke involving anterior cerebral artery, right Psychiatric History: Reports: Anxiety, Depression Endocrine/Metabolic History: Reports: Diabetes, Type II, Hypothyroidism, Obesity/BMI 30+ Hematologic History: Reports: None Immunologic History: Reports: None Oncologic (Cancer) History: Reports: Cervix Dermatologic History: Reports: Cellulitis - Infectious Disease History Infectious Disease History: Reports: None Other Infectious Disease History: Shingles 2018 - Past Surgical History Head Surgeries/Procedures: Reports: None HEENT Surgical History: Reports: Tonsillectomy, Other (See Below) Cardiovascular Surgical History: Reports: None Respiratory Surgical History: Reports: None GI Surgical History: Reports: Cholecystectomy Other GI Surgeries/Procedures: FLEX SIG Female Surgical History: Reports: Hysterectomy Neurological Surgical History: Reports: None Other Neurological Surgeries/Procedures: 4 cerebral aneurysms coiled Musculoskeletal Surgical History: Reports: None Oncologic Surgical History: Reports: None Social & Family History - Family History Family Medical History: No Pertinent Family History Cardiac: Reports: Arrhythmia, CAD Other Family History: Cervical cancer Oncologic: Reports: Cervix - Tobacco Use Tobacco Use Status *Q: Never Tobacco User - Caffeine Use Caffeine Use: Reports: None Other Caffeine Use: AVERAGE OF 4 CUPS DAILY - Recreational Drug Use Recreational Drug Use: No - Living Situation & Occupation Living situation: Reports: with Family Occupation: Retired ED ROS GENERAL - Review of Systems Review Of Systems: Comprehensive ROS is negative, except as noted in HPI. ED EXAM, GENERAL - Physical Exam Exam: See Below Exam Limited By: No Limitations General Appearance: Alert, No Apparent Distress, Obese Eye Exam: Bilateral Eye: EOMI, Normal Inspection, PERRL (3mm) Ears: Normal External Exam, Normal Canal, Hearing Grossly Normal, Normal TMs Ear Exam: Bilateral Ear: Auricle Normal, Canal Normal, TM normal Nose: Normal Inspection, Normal Mucosa, No Blood Throat/Mouth: Normal Voice, No Airway Compromise. No: Normal Teeth (Missing upper and lower teeth; Dentures not in place), Normal Oropharynx (Dry mucous membranes) Head: Atraumatic, Normocephalic Neck: Normal Inspection, Supple, Non-Tender, Full Range of Motion. No: Lymphadenopathy (L), Lymphadenopathy (R) Respiratory/Chest: Chest Non-Tender, Rales (To left lobes), Wheezing (Expiratory to left). No: Crackles, Rhonchi, Stridor Cardiovascular: Normal Peripheral Pulses, Regular Rate, Rhythm, No Gallop, No JVD, No Murmur, No Rub. No: No Edema Peripheral Pulses: 2+: Radial (L), Radial (R) GI/Abdominal: Normal Bowel Sounds, Soft, Non-Tender, No Distention, No Mass, Pelvis Stable (Female) Exam: Deferred Rectal (Female) Exam: Deferred Back Exam: Normal Inspection, Full Range of Motion Extremities: Normal Range of Motion, Non-Tender, Normal Capillary Refill, Pedal Edema (+2 pitting to RLE; +1 non-pitting to LLE) Neurological: Alert, Oriented, CN II-XII Intact, Normal Cognition, Normal Gait, No Motor/Sensory Deficits Psychiatric: Normal Affect, Normal Mood Skin Exam: Warm, Dry, Intact, Normal Color, No Rash. No: Ecchymosis, Erythema, Jaundice, Mottled, Pallor, Petechiae Course - Vital Signs Last Recorded V/S: Last Vital Signs Temp 98.1 F 01/14/21 08:18 Pulse 72 01/14/21 08:18 Resp 24 H 01/14/21 08:18 BP 121/41 L 01/14/21 08:18 Pulse Ox 98 01/14/21 08:18 - Orders/Labs/Meds Labs: Laboratory Tests 01/14/21 01/14/21 01/14/21 Range/Units 08:18 08:40 08:40 WBC 6.5 (5.0-10.0) 10^3/uL RBC 3.44 L (4.2-5.4) 10^6/uL Hgb 11.1 L D (12.0-16.0) g/dL Hct 35.5 L (37.0-47.0) % MCV 103.2 H D (80-100) fL MCH 32.3 (27.0-34.0) pg MCHC 31.3 L (33.0-35.0) g/dL Plt Count 184 (150-450) 10^3/uL Neut % (Auto) 75.5 H (42.2-75.2) % Lymph % (Auto) 11.4 L (20.5-50.1) % [place] % (Auto) 11.4 H (2-8) % Eos % (Auto) 1.4 (1.0-3.0) % Baso % (Auto) 0.3 (0.0-1.0) % PT 10.3 (9.0-12.0) SEC INR 1.0 (0.9-1.2) APTT 24.9 (22.0-34.0) SEC Sodium (136-145) mmol/L Potassium (3.5-5.1) mmol/L Chloride (98-107) mmol/L Carbon Dioxide (21-32) mmol/L Anion Gap (7-13) mEq/L BUN (7-18) mg/dL Creatinine (0.55-1.02) mg/dL Est Cr Clr Drug Dosing Estimated GFR (MDRD) BUN/Creatinine Ratio (No establ ref range) Glucose (70-99) mg/dL Calcium (8.5-10.1) mg/dL Magnesium (1.8-2.4) mg/dL Total Bilirubin (0.2-1.0) mg/dL AST (15-37) U/L ALT (14-59) U/L Alkaline Phosphatase (46-116) U/L Troponin I (0.000-0.056) ng/mL C-Reactive Protein (0.0-0.9) mg/dL B-Natriuretic Peptide (0-100) pg/ml Total Protein (6.4-8.2) g/dL Albumin (3.4-5.0) g/dL Globulin Albumin/Globulin Ratio Amylase (25-115) U/L Lipase (73-393) U/L Urine Color (YELLOW) Urine Appearance (CLEAR) Urine pH (5.0-9.0) Ur Specific [place] (1.005-1.030) Urine Protein (NEGATIVE) Urine Glucose (UA) (NEGATIVE) Urine Ketones (NEGATIVE) Urine Occult Blood (NEGATIVE) Urine Nitrite (NEGATIVE) Urine Bilirubin (NEGATIVE) Urine Urobilinogen (0.2-1.0) mg/dL Ur Leukocyte Esterase (NEGATIVE) U Hyaline Cast (Auto) Urine RBC /HPF Urine WBC (0-5/HPF) /HPF Ur Epithelial Cells (NOT SEEN) /HPF Urine Bacteria (0-FEW/HPF) /HPF Urine Mucus (NOT SEEN) /LPF Urine Opiates Screen (NEGATIVE) Ur Oxycodone Screen (NEGATIVE) Urine Methadone Screen (NEGATIVE) Ur Barbiturates Screen (NEGATIVE) U Tricyclic Antidepress (NEGATIVE) Ur Phencyclidine Scrn (NEGATIVE) Ur Amphetamine Screen (NEGATIVE) U Methamphetamines Scrn (NEGATIVE) Urine MDMA Screen (NEGATIVE) U Benzodiazepines Scrn (NEGATIVE) Urine Cocaine Screen (NEGATIVE) U Marijuana (THC) Screen (NEGATIVE) Influenza Type A RNA Negative (NEGATIVE) Influenza Type B RNA Negative (NEGATIVE) SARS-CoV-2 RNA (ANIBAL) Negative (NEGATIVE) 01/14/21 01/14/21 01/14/21 Range/Units 08:40 09:15 09:15 WBC (5.0-10.0) 10^3/uL RBC (4.2-5.4) 10^6/uL Hgb (12.0-16.0) g/dL Hct (37.0-47.0) % MCV (80-100) fL MCH (27.0-34.0) pg MCHC (33.0-35.0) g/dL Plt Count (150-450) 10^3/uL Neut % (Auto) (42.2-75.2) % Lymph % (Auto) (20.5-50.1) % Davie % (Auto) (2-8) % Eos % (Auto) (1.0-3.0) % Baso % (Auto) (0.0-1.0) % PT (9.0-12.0) SEC INR (0.9-1.2) APTT (22.0-34.0) SEC Sodium 135 L (136-145) mmol/L Potassium 4.0 (3.5-5.1) mmol/L Chloride 99 (98-107) mmol/L Carbon Dioxide 27 (21-32) mmol/L Anion Gap 13.0 (7-13) mEq/L BUN 12 (7-18) mg/dL Creatinine 1.21 H (0.55-1.02) mg/dL Est Cr Clr Drug Dosing TNP Estimated GFR (MDRD) 44 BUN/Creatinine Ratio 9.9 (No establ ref range) Glucose 271 H (70-99) mg/dL Calcium 8.4 L (8.5-10.1) mg/dL Magnesium 1.8 (1.8-2.4) mg/dL Total Bilirubin 0.6 (0.2-1.0) mg/dL AST 37 (15-37) U/L ALT 28 (14-59) U/L Alkaline Phosphatase 135 H (46-116) U/L Troponin I < 0.017 (0.000-0.056) ng/mL C-Reactive Protein 7.4 H (0.0-0.9) mg/dL B-Natriuretic Peptide 1010 H (0-100) pg/ml Total Protein 7.9 (6.4-8.2) g/dL Albumin 2.8 L (3.4-5.0) g/dL Globulin 5.1 Albumin/Globulin Ratio 0.55 Amylase 19 L (25-115) U/L Lipase 92 (73-393) U/L Urine Color Caty (YELLOW) Urine Appearance Slightly cloudy (CLEAR) Urine pH 5.5 (5.0-9.0) Ur Specific [place] >= 1.030 (1.005-1.030) Urine Protein 30 H (NEGATIVE) Urine Glucose (UA) 100 H (NEGATIVE) Urine Ketones Negative (NEGATIVE) Urine Occult Blood Negative (NEGATIVE) Urine Nitrite Negative (NEGATIVE) Urine Bilirubin Small H (NEGATIVE) Urine Urobilinogen 0.2 (0.2-1.0) mg/dL Ur Leukocyte Esterase Negative (NEGATIVE) U Hyaline Cast (Auto) Few Urine RBC 0-5 /HPF Urine WBC 0-5 (0-5/HPF) /HPF Ur Epithelial Cells Moderate H (NOT SEEN) /HPF Urine Bacteria Few (0-FEW/HPF) /HPF Urine Mucus Few H (NOT SEEN) /LPF Urine Opiates Screen Negative (NEGATIVE) Ur Oxycodone Screen Negative (NEGATIVE) Urine Methadone Screen Negative (NEGATIVE) Ur Barbiturates Screen Negative (NEGATIVE) U Tricyclic Antidepress Negative (NEGATIVE) Ur Phencyclidine Scrn Negative (NEGATIVE) Ur Amphetamine Screen Negative (NEGATIVE) U Methamphetamines Scrn Negative (NEGATIVE) Urine MDMA Screen Negative (NEGATIVE) U Benzodiazepines Scrn Negative (NEGATIVE) Urine Cocaine Screen Negative (NEGATIVE) U Marijuana (THC) Screen Negative (NEGATIVE) Influenza Type A RNA (NEGATIVE) Influenza Type B RNA (NEGATIVE) SARS-CoV-2 RNA (ANIBAL) (NEGATIVE) Meds: Medications Discontinued Medications Generic Name Dose Route Start Last Admin Trade Name Freq PRN Reason Stop Dose Admin Albuterol/Ipratropium 3 ml 01/14/21 08:36 01/14/21 08:55 Albuterol/Ipratropium 3.0-0.5 Mg/3 Ml Neb Soln NEB 01/14/21 08:37 3 ml ONETIME ONE Administration Heparin Sodium (Porcine) 500 units 01/14/21 11:42 01/14/21 11:52 Heparin Sodium 100 Units/Ml 5 Ml Syringe FLUSH 500 units ASDIRECTED PRN Administration Port Care Methylprednisolone Sodium Succinate 125 mg 01/14/21 08:36 01/14/21 08:52 Methylprednisolone Sodium Succinate 125 Mg/2 Ml Sdv IVPUSH 01/14/21 08:37 125 mg ONETIME ONE Administration - Radiology Interpretation Free Text/Narrative:: [facility] Final Radiology Report Call: [phone] assistance Online chat: [email or web address] Name: SONI NEWMAN Age: 70Years F Date: 01/14/2021 SSN: -- : 1950 Study: CT CHEST WO CONT Requesting Physician: Dottie Hammond Images: [id number] Addl Studies: Provided Clinical History: Progressive shortness of breath x2 days Contrast: Without Contrast Medium: Contrast Amount: Contrast Method: Page 1 of 2 PROCEDURE INFORMATION: Exam: CT Chest Without Contrast; Diagnostic Exam date and time: 01/14/2021 9:35 AM Age: 70 years old Clinical indication: Shortness of breath; Additional info: Progressive shortness of breath x2 days TECHNIQUE: Imaging protocol: Diagnostic computed tomography of the chest without contrast. Radiation optimization: All CT scans at this facility use at least one of these dose optimization techniques: automated exposure control; mA and/or kV adjustment per patient size (includes targeted exams where dose is matched to clinical indication); or iterative reconstruction. COMPARISON: CT Chest Abdomen Pelvis w Cont 10/04/2020 9:31 AM FINDINGS: Lungs: In comparison to the prior exam, interval enlargement of a pre-existing rounded right lower lobe 2.4 cm x 3.0 x 2.6 pleural based mass with adjacent pleural thickening. No definite chest wall invasion. There is a small adjacent right lateral parenchymal infiltrate (series 3 image [id number] ). There are new multifocal bilateral upper lobe airspace infiltrates. There also interval small scattered semisolid nodules within bilateral upper and lower lobes (right upper lobe series 3 images 17 -25, left lower lobe series 3, image 29) Impression: Pleural spaces: Small left pleural effusion No pneumothorax. No pleural effusion. Heart: Mild coronary artery calcifications. No cardiomegaly. No pericardial effusion. Aorta: Atherosclerotic calcification of the aorta. No aortic aneurysm. Veins: There is a right central line with the tip in the superior vena cava. Lymph nodes: Unremarkable. No enlarged lymph nodes. Liver: There is hepatomegaly and diffuse decrease in hepatic parenchymal density, consistent with moderate fatty infiltration. Spleen: There is splenomegaly. Bones/joints: Multilevel endplate spondylitic degenerative disease. No acute fracture. Soft tissues: Unremarkable. IMPRESSION: 1. Enlarging right lower lobe mass compatible with neoplasm. New multifocal airspace infiltrates and small lung nodules may represent further metastatic involvement. Superimposed acute pneumonitis is not excluded. Consider PET-CT scan for further characterization. 2. Hepatomegaly and steatosis. 3. Splenomegaly. Thank you for allowing us to participate in the care of your patient. Dictated and Authenticated by: Allison Lopez MD 01/14/2021 10:27 AM Central Time ([place] & [place]) - Re-Assessments/Exams Free Text/Narrative Re-Assessment/Exam: 01/14/21 Will treat SOB with DuoNeb and Solu-Medrol 125mg; COVID and Influenza pending. CT chest pending. CBC revealed macrocytic, hypochromic anemia with Hgb 11.1; WBC WNL at 5.8, left shift present. Troponin WNL; EGK revealed Afib for which patient takes amiodarone. Patient verbalized improvement in breathing following nebulizer and steroid. CMP reveals kidney function slightly reduced with creatinine 1.21, BUN, 12, and GFR 44; liver function and electrolytes appropriate. BNP elevated at 1010 and CRP 7.4. UA contaminated, with no signs of infection. Tox screen negative. COVID and Influenza negative. CT chest revealed multifocal airspace infiltrates and small lung nodules; superimposed pneumonitis on metastatic disease cannot be excluded. Findings of examination, lab work, and imaging reviewed with patient. Will treat SOB with pulmonary prednisone burst, Azithromycin, and extra doses of Lasix. Patient instructed to follow up with primary care provider in one to two days. Red flag signs and symptoms which would warrant reevaluation reviewed. Patient verbalized understanding and agreement with the plan of care. Departure - Departure Time of Disposition: 11:20 Disposition: Home, Self-Care 01 Condition: Fair Clinical Impression: History of lung cancer, Small cell lung cancer in adult, Elevated brain natriuretic peptide (BNP) level, History of COPD, Pleural effusion, left - Discharge Information *PRESCRIPTION DRUG MONITORING PROGRAM REVIEWED*: Not Applicable *COPY OF PRESCRIPTION DRUG MONITORING REPORT IN PATIENT MACIE: Not Applicable Instructions: Chronic Obstructive Pulmonary Disease Exacerbation, [id number], Shortness of Breath, Adult, [id number] Referrals: Bashir Munoz MD [Primary Care Provider] - Forms: ED Department Discharge Additional Instructions: Rx: Prednisone Rx: Azithromycin Rx: Lasix 1.) Take one extra dose of Lasix each morning for three days - you do not need to take an extra afternoon/evening dose. 2.) Follow up with Dr. Munoz in one to two days regarding today's visit. 3.) Continue with albuterol nebulizers, every four hours, as needed for shortness of breath. 4.) Return to the emergency department with any shortness of breath that does not improved with medications, chest pain, fever, or shaking chills. Sepsis Event Note (ED) - Evaluation Sepsis Screening Result: No Definite Risk
[2021-01-14 09:17] LABS: CORONAVIRUS COVID-19 NAA NEGATIVE (NEGATIVE)
--- NOTE | 2021-01-14 10:27 | CT ---
PROCEDURE INFORMATION: Exam: CT Chest Without Contrast; Diagnostic Exam date and time: 01/14/2021 9:35 AM Age: 70 years old Clinical indication: Shortness of breath; Additional info: Progressive shortness of breath x2 days TECHNIQUE: Imaging protocol: Diagnostic computed tomography of the chest without contrast. Radiation optimization: All CT scans at this facility use at least one of these dose optimization techniques: automated exposure control; mA and/or kV adjustment per patient size (includes targeted exams where dose is matched to clinical indication); or iterative reconstruction. COMPARISON: CT Chest Abdomen Pelvis w Cont 10/04/2020 9:31 AM FINDINGS: Lungs: In comparison to the prior exam, interval enlargement of a pre-existing rounded right lower lobe 2.4 cm x 3.0 x 2.6 pleural based mass with adjacent pleural thickening. No definite chest wall invasion. There is a small adjacent right lateral parenchymal infiltrate (series 3 image [id number] ). There are new multifocal bilateral upper lobe airspace infiltrates. There also interval small scattered semisolid nodules within bilateral upper and lower lobes (right upper lobe series 3 images 17 -25, left lower lobe series 3, image 29) Impression: Pleural spaces: Small left pleural effusion No pneumothorax. No pleural effusion. Heart: Mild coronary artery calcifications. No cardiomegaly. No pericardial effusion. Aorta: Atherosclerotic calcification of the aorta. No aortic aneurysm. Veins: There is a right central line with the tip in the superior vena cava. Lymph nodes: Unremarkable. No enlarged lymph nodes. Liver: There is hepatomegaly and diffuse decrease in hepatic parenchymal density, consistent with moderate fatty infiltration. Spleen: There is splenomegaly. Bones/joints: Multilevel endplate spondylitic degenerative disease. No acute fracture. Soft tissues: Unremarkable. IMPRESSION: 1. Enlarging right lower lobe mass compatible with neoplasm. New multifocal airspace infiltrates and small lung nodules may represent further metastatic involvement. Superimposed acute pneumonitis is not excluded. Consider PET-CT scan for further characterization. 2. Hepatomegaly and steatosis. 3. Splenomegaly.
== END 2021-01-14 11:55 | disposition home or self-care (01) ==
LOC: DL.ED 07:46
DX: J90 Pleural effusion, not elsewhere classified (principal); C34.91 Malignant neoplasm of unspecified part of right bronchus or lung; R79.89 Other specified abnormal findings of blood chemistry; I25.10 Atherosclerotic heart disease of native coronary artery without angina pectoris; E78.00 Pure hypercholesterolemia, unspecified; I10 Essential (primary) hypertension; E11.9 Type 2 diabetes mellitus without complications; E66.9 Obesity, unspecified; E03.9 Hypothyroidism, unspecified; J44.9 Chronic obstructive pulmonary disease, unspecified; K21.9 Gastro-esophageal reflux disease without esophagitis; Z68.43 Body mass index [BMI] 50.0-59.9, adult; Z88.5 Allergy status to narcotic agent; Z91.011 Allergy to milk products; Z88.1 Allergy status to other antibiotic agents; Z88.8 Allergy status to other drugs, medicaments and biological substances; Z88.2 Allergy status to sulfonamides; Z79.82 Long term (current) use of aspirin; Z79.02 Long term (current) use of antithrombotics/antiplatelets; Z79.4 Long term (current) use of insulin; Z79.899 Other long term (current) drug therapy; Z20.822 Contact with and (suspected) exposure to COVID-19
CPT/HCPCS: 0240U; 36415; 71250; 80053; 80305-QW; 81001; 82150; 83690; 83735; 83880; 84484; 85025; 85610; 85730; 86140; 93005; 94640; 96374; 99285-25; J1642; J2930; J7620-GY

== ENCOUNTER 2021-02-27 15:57 | Emergency (ER) | payer MEDICARE, MEDICAID ==
[2021-02-27 16:13] VITALS: BP 131/82; PULSE 126
[2021-02-27] MEDS ORDERED: Diltiazem 25 MG/5 ML SDV IVPUSH ONE ×2 (16:17→17:13)
[2021-02-27] MEDS ORDERED: Diltiazem 125 MG in Sodium Chloride 0.9% 100 ML IV SCH (16:30)
--- NOTE | 2021-02-27 16:55 | CT ---
PROCEDURE INFORMATION: Exam: CT Head Without Contrast Exam date and time: 02/27/2021 4:47 PM Age: 70 years old Clinical indication: Weakness, extremity; Left; Additional info: Stroke code: Acute left sided weakness TECHNIQUE: Imaging protocol: Computed tomography of the head without contrast. Radiation optimization: All CT scans at this facility use at least one of these dose optimization techniques: automated exposure control; mA and/or kV adjustment per patient size (includes targeted exams where dose is matched to clinical indication); or iterative reconstruction. Other technique: STROKE PROTOCOL was implemented. COMPARISON: MR Brain wo Cont 10/02/2020 12:55 PM FINDINGS: Brain: Hyperdense nodule in the left posterior fossa. The nodule is probably intra-axial, measuring 2.1 x 1.7 x 1.4 cm. There is adjacent reactive white matter edema. No shift across the midline. No other acute intracranial changes. No evidence of acute ischemia. No hemorrhage. No abnormal extra-axial fluid collections. Cerebral ventricles: No ventriculomegaly. Paranasal sinuses: Visualized sinuses are unremarkable. No fluid levels. Mastoid air cells: Visualized mastoid air cells are well aerated. Bones/joints: Unremarkable. No acute fracture. Soft tissues: Unremarkable. IMPRESSION: Nodule in the left posterior fossa is most likely metastatic disease. ASSESSMENT: ASPECTS ([place] Stroke Program Early CT Score) is 10.
[2021-02-27 17:16] LABS: PTT,PARTIAL THROMBOPLSTIN TIME 24.1 SEC (22.0-34.0)
[2021-02-27 17:22] LABS: ANION GAP 12.8 mEq/L (7-13); CHLORIDE,CL 92 mmol/L (98-107); SODIUM,NA 128 mmol/L (136-145)
--- NOTE | 2021-02-27 17:50 | EDM.PDOC ---
"Scribed by Layne Riojas 02/27/21 [id number] for Sam Mcbride MD ED HPI GENERAL MEDICAL PROBLEM - General Chief Complaint: General Stated Complaint: AMBULANCE Time Seen by Provider: 02/27/21 15:57 Source of Information: Reports: Patient, EMS, EMS Notes Reviewed, RN, RN Notes Reviewed History Limitations: Reports: No Limitations - History of Present Illness INITIAL COMMENTS - FREE TEXT/NARRATIVE: Patient arrives to ED by [facility]. Patient states she felt dizzy this morning and it got worse through the day. States she feels nauseated. History of lung cancer bilaterally. Onset: Gradual Duration: Getting Worse abdomen Pain Score (Numeric/FACES): 8 - Related Data Allergies Allergy/AdvReac Type Severity Reaction Status Date / Time acetaminophen Allergy Rash Verified 02/27/21 16:14 [From Darvocet-N 100] atorvastatin calcium Allergy Cannot Verified 02/27/21 16:14 [From Lipitor] Remember cephalexin [From Keflex] Allergy Swelling Verified 02/27/21 16:14 codeine Allergy Nausea and Verified 02/27/21 16:14 Vomiting lansoprazole [From Prevacid] Allergy Rash Verified 02/27/21 16:14 levofloxacin [From Levaquin] Allergy Blisters Verified 02/27/21 16:14 propoxyphene napsylate Allergy Rash Verified 02/27/21 16:14 [From Darvocet-N 100] Sulfa (Sulfonamide Allergy Cannot Verified 02/27/21 16:14 Antibiotics) Remember tramadol HCl [From Ultram] Allergy Rash Verified 02/27/21 16:14 Milk Allergy Diarrhea Uncoded 09/11/19 12:18 Home Meds: Home Meds Acetaminophen [Tylenol Extra Strength] 500 tab PO DAILY PRN 09/05/13 [History] Calcium Carbonate/Vitamin D3 [Calcium 250+D] 500 mg PO BID 09/05/13 [History] Clopidogrel [Plavix] 75 mg PO DAILY 09/05/13 [History] Diclofenac Sodium [Voltaren 1% Gel] 1 applic TOP ASDIRECTED PRN 09/05/13 [History] Loperamide [Imodium] 2 mg PO DAILY PRN 09/05/13 [History] Mirtazapine [Remeron] 15 mg PO BEDTIME 09/05/13 [History] amLODIPine [Norvasc] 5 mg PO DAILY 09/05/13 [History] Colesevelam [Welchol] 1,875 mg PO BID 11/12/13 [History] DULoxetine [Cymbalta] 60 mg PO BID 11/12/13 [History] Insulin Aspart [NovoLOG] 35 unit SQ TIDMEALS 05/14/16 [History] Aspirin [Adult Low Dose Aspirin EC] 81 mg PO DAILY 03/08/18 [History] Insulin Detemir [Levemir Flextouch] 48 units INJECT BID 03/08/18 [History] Nitroglycerin [Nitrostat] 0.4 mg PO ASDIRECTED 03/08/18 [History] Nystatin 5 ml PO QID PRN 03/08/18 [History] Pantoprazole [ProTONIX] 40 mg PO BID 03/08/18 [History] Potassium Chloride 1 tab PO BID 03/08/18 [History] ClonazePAM [KlonoPIN] 0.5 mg PO BID PRN 03/09/18 [History] Albuterol [Ventolin HFA] 2 puff INH Q4HR PRN 03/26/20 [History] Diphenoxylate HCl/Atropine [Diphenoxylate-Atrop 2.5-0.025] 1 each PO QID PRN 03/26/20 [History] Lidocaine/Prilocaine [EMLA Crm] 1 applic TOP .ASNEEDED PRN 03/26/20 [History] Furosemide [Lasix] 40 mg PO BID 03/27/20 [History] Levothyroxine 200 mcg PO ACBREAKFAST 03/27/20 [History] Losartan [Cozaar] 50 mg PO DAILY 03/27/20 [History] Umeclidinium [place] [Incruse Ellipta*] 1 puff INH DAILY 03/27/20 [History] Past Medical History HEENT History: Reports: Epistaxis, Impaired Vision, Other (See Below) Cardiovascular History: Reports: CAD, High Cholesterol, Hypertension, SOB on Exertion, Other (See Below) Other Cardiovascular History: ISCHEMIC HEART DIESASE Respiratory History: Reports: COPD, Sleep Apnea, Other (See Below) Other Respiratory History: Left sided small cell aggresive cancer; right side squamous cell carcinoma Gastrointestinal History: Reports: Diverticulosis, GERD, Hemorrhoids, Hiatal Hernia, Irritable Bowel Syndrome Other Gastrointestinal History: Focal nodular hyperplasia of liver. HX OF HEPATATIC LESION Genitourinary History: Reports: Renal Calculus, Urinary Incontinence Other [employer] History: cervical cancer in 1980. Post menopausal HRT Musculoskeletal History: Reports: Fibromyalgia, Osteoarthritis, Other (See Below) Neurological History: Reports: Cerebral Aneurysms, CVA Other Neuro History: Embolic stroke involving anterior cerebral artery, right Psychiatric History: Reports: Anxiety, Depression Endocrine/Metabolic History: Reports: Diabetes, Type II, Hypothyroidism, Obesity/BMI 30+ Hematologic History: Reports: None Immunologic History: Reports: None Oncologic (Cancer) History: Reports: Cervix Dermatologic History: Reports: Cellulitis - Infectious Disease History Infectious Disease History: Reports: None Other Infectious Disease History: Shingles 2018 - Past Surgical History Head Surgeries/Procedures: Reports: None HEENT Surgical History: Reports: Tonsillectomy, Other (See Below) Cardiovascular Surgical History: Reports: None Respiratory Surgical History: Reports: None GI Surgical History: Reports: Cholecystectomy Other GI Surgeries/Procedures: FLEX SIG Female Surgical History: Reports: Hysterectomy Neurological Surgical History: Reports: None Other Neurological Surgeries/Procedures: 4 cerebral aneurysms coiled Musculoskeletal Surgical History: Reports: None Oncologic Surgical History: Reports: None Social & Family History - Family History Family Medical History: No Pertinent Family History Cardiac: Reports: Arrhythmia, CAD Other Family History: Cervical cancer Oncologic: Reports: Cervix - Caffeine Use Caffeine Use: Reports: None Other Caffeine Use: AVERAGE OF 4 CUPS DAILY - Living Situation & Occupation Living situation: Reports: with Family Occupation: Retired ED ROS GENERAL - Review of Systems Review Of Systems: Comprehensive ROS is negative, except as noted in HPI. ED EXAM, GENERAL - Physical Exam Exam: See Below Exam Limited By: No Limitations General Appearance: Alert, WD/WN, No Apparent Distress Eye Exam: Bilateral Eye: EOMI, Normal Inspection, PERRL Ears: Normal External Exam, Normal Canal, Hearing Grossly Normal, Normal TMs Nose: Normal Inspection, Normal Mucosa, No Blood Throat/Mouth: Normal Inspection, Normal Lips, Normal Teeth, Normal Gums, Normal Oropharynx, Normal Voice, No Airway Compromise Head: Atraumatic, Normocephalic Neck: Normal Inspection, Supple, Non-Tender, Full Range of Motion Respiratory/Chest: No Respiratory Distress, Lungs Clear, Normal Breath Sounds, No Accessory Muscle Use, Chest Non-Tender GI/Abdominal: Normal Bowel Sounds, Soft, Non-Tender, No Organomegaly, No Distention, No Abnormal Bruit, No Mass (Female) Exam: Deferred Rectal (Female) Exam: Deferred Back Exam: Normal Inspection, Full Range of Motion, NT Extremities: Normal Inspection, Normal Range of Motion, Non-Tender, Normal Capillary Refill, No Pedal Edema Neurological: Alert, Oriented, CN II-XII Intact, Normal Cognition, Normal Gait, Normal Reflexes, No Motor/Sensory Deficits Psychiatric: Normal Affect, Normal Mood Skin Exam: Warm, Dry, Intact, Normal Color, No Rash #1 Interpretation EKG Date: 02/27/21 Time: 16:21 Rhythm: A-Fib (with rapid ventricular response) [place]: Normal P-Wave: Present QRS: Other (LAFB) ST-T: Other (nonspecific ST segment changes) QT: Normal Course - Vital Signs Last Recorded V/S: Last Vital Signs Temp 98.8 F 02/27/21 16:11 Pulse 126 H 02/27/21 16:11 Resp 19 02/27/21 16:11 BP 131/82 02/27/21 16:11 Pulse Ox 98 02/27/21 16:11 - Orders/Labs/Meds Orders: Active Orders 24 hr Category Date Time Status EKG 12 Lead [EKG Documentation Completion] [RC] STAT Care 02/27/21 16:16 Active B-TYPE NATRIURETIC PEPTIDE,BNP [CHEM] Stat Lab 02/27/21 16:32 Results COMPREHENSIVE METABOLIC PN,CMP [CHEM] Stat Lab 02/27/21 16:32 Results MAGNESIUM [CHEM] Stat Lab 02/27/21 16:32 Results TROPONIN I HIGH SENSITIVITY [CHEM] Stat Lab 02/27/21 16:32 Results TSH ULTRASENSITIVE [CHEM] Stat Lab 02/27/21 16:32 Results UA RFX ADAMA AND CULT IF INDIC [URIN] Stat Lab 02/27/21 16:16 Ordered Diltiazem 125 mg Med 02/27/21 16:30 Active Sodium Chloride 0.9% [Normal Saline] 100 ml IV TITRATE Medication Orders Diltiazem HCl 125 mg/ Sodium (Chloride) 125 mls @ 10 mls/hr IV TITRATE REUBEN; Protocol Last Admin: 02/27/21 17:15 Dose: 10 mg/hr, 10 mls/hr Documented by: KRISTINE Labs: Laboratory Tests 02/27/21 02/27/21 02/27/21 Range/Units 16:32 16:32 16:32 WBC 7.3 (5.0-10.0) 10^3/uL RBC 2.89 L (4.2-5.4) 10^6/uL Hgb 9.1 L D (12.0-16.0) g/dL Hct 28.4 L (37.0-47.0) % MCV 98.3 D (80-100) fL MCH 31.5 (27.0-34.0) pg MCHC 32.0 L (33.0-35.0) g/dL Plt Count 200 (150-450) 10^3/uL Neut % (Auto) 81.2 H (42.2-75.2) % Lymph % (Auto) 9.5 L (20.5-50.1) % [place] % (Auto) 8.9 H (2-8) % Eos % (Auto) 0.3 L (1.0-3.0) % Baso % (Auto) 0.1 (0.0-1.0) % PT 11.0 (9.0-12.0) SEC INR 1.1 (0.9-1.2) APTT 24.1 (22.0-34.0) SEC Sodium 128 L (136-145) mmol/L Potassium 4.8 (3.5-5.1) mmol/L Chloride 92 L (98-107) mmol/L Carbon Dioxide 28 (21-32) mmol/L Anion Gap 12.8 (7-13) mEq/L BUN 14 (7-18) mg/dL Creatinine 1.09 H (0.55-1.02) mg/dL Est Cr Clr Drug Dosing TNP Estimated GFR (MDRD) 50 BUN/Creatinine Ratio 12.8 (No establ ref range) Glucose 258 H (70-99) mg/dL Calcium 8.4 L (8.5-10.1) mg/dL Magnesium 1.5 L (1.8-2.4) mg/dL Total Bilirubin 0.6 (0.2-1.0) mg/dL AST 45 H (15-37) U/L ALT 30 (14-59) U/L Alkaline Phosphatase 132 H (46-116) U/L Troponin I High Sens 35 (<=51) pg/mL Total Protein 7.5 (6.4-8.2) g/dL Albumin 2.6 L (3.4-5.0) g/dL Globulin 4.9 Albumin/Globulin Ratio 0.53 TSH, Ultra Sensitive 4.10 H (0.36-3.74) uIU/mL Meds: Medications Generic Name Dose Route Start Last Admin Trade Name Freq PRN Reason Stop Dose Admin Diltiazem HCl 125 mg/ Sodium 125 mls @ 10 mls/hr 02/27/21 16:30 02/27/21 17:15 Chloride IV 10 mg/hr TITRATE REUBEN 10 mls/hr Administration Protocol 10 MG/HR Discontinued Medications Generic Name Dose Route Start Last Admin Trade Name Freq PRN Reason Stop Dose Admin Diltiazem HCl 20 mg 02/27/21 16:17 02/27/21 16:27 Diltiazem 25 Mg/5 Ml Sdv IVPUSH 02/27/21 16:18 20 mg ONETIME ONE Administration Diltiazem HCl 20 mg 02/27/21 17:13 02/27/21 17:18 Diltiazem 25 Mg/5 Ml Sdv IVPUSH 02/27/21 17:14 20 mg ONETIME ONE Administration - Radiology Interpretation Free Text/Narrative:: [facility] Final Radiology Report with Addendum Call: [phone] assistance Online chat: [email or web address] Name: SONI NEWMAN Age: 70Years F Date: 02/27/2021 SSN: -- : 1950 Study: CT HEAD WO CONT Requesting Physician: SAM MCBRIDE Images: 146 Addl Studies: Provided Clinical History: STROKE CODE: acute left sided weakness Contrast: Without Contrast Medium: Contrast Amount: Contrast Method: Page 1 of 2 Addendum created by Clive Chapa MD on 02/27/2021 5:12 PM Central Time ([place] & [place]): The study results were discussed with SAM Bansal at 5:12 PM CDT Initial Report created on 02/27/2021 4:55 PM Central Time ([place] & [place]): PROCEDURE INFORMATION: Exam: CT Head Without Contrast Exam date and time: 02/27/2021 4:47 PM Age: 70 years old Clinical indication: Weakness, extremity; Left; Additional info: Stroke code: Acute left sided weakness TECHNIQUE: Imaging protocol: Computed tomography of the head without contrast. Radiation optimization: All CT scans at this facility use at least one of these dose optimization techniques: automated exposure control; mA and/or kV adjustment per patient size (includes targeted exams where dose is matched to clinical indication); or iterative reconstr uction. Other technique: STROKE PROTOCOL was implemented. COMPARISON: MR Brain wo Cont 10/02/2020 12:55 PM FINDINGS: Brain: Hyperdense nodule in the left posterior fossa. The nodule is probably intra-axial, measuring 2.1 x 1.7 x 1.4 cm. There is adjacent reactive white matter edema. No shift across the midline. No other acute intracranial changes. No evidence of acute ischemia. No hemorrhage. No abnormal extra-axial fluid collections. Cerebral ventricles: No ventriculomegaly. Paranasal sinuses: Visualized sinuses are unremarkable. No fluid levels. Mastoid air cells: Visualized mastoid air cells are well aerated. Bones/joints: Unremarkable. No acute fracture. NEWMAN, SONI | Final Radiology Report CONFIDENTIALITY STATEMENT This report is intended only for use by the referring physician, and only in accordance with law. If you received this in error, call [phone]. Page 2 of 2 Soft tissues: Unremarkable. IMPRESSION: Nodule in the left posterior fossa is most likely metastatic disease. ASSESSMENT: ASPECTS ([place] Stroke Program Early CT Score) is 10. Thank you for allowing us to participate in the care of your patient. 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 - Discharge Information *PRESCRIPTION DRUG MONITORING PROGRAM REVIEWED*: Not Applicable *COPY OF PRESCRIPTION DRUG MONITORING REPORT IN PATIENT MACIE: Not Applicable Forms: ED Department Discharge, Interfacility Transfer EMTALA Sepsis Event Note (ED) - Focused Exam Vital Signs: Vital Signs Temp Pulse Resp BP Pulse Ox 02/27/21 16:11 98.8 F 126 H 19 131/82 98 - My Orders Last 24 Hours: My Active Orders 02/27/21 16:16 EKG 12 Lead [EKG Documentation Completion] [RC] STAT UA RFX ADAMA AND CULT IF INDIC [URIN] Stat 02/27/21 16:30 Diltiazem 125 mg Sodium Chloride 0.9% [Normal Saline] 100 ml IV TITRATE 02/27/21 16:32 B-TYPE NATRIURETIC PEPTIDE,BNP [CHEM] Stat COMPREHENSIVE METABOLIC PN,CMP [CHEM] Stat MAGNESIUM [CHEM] Stat TROPONIN I HIGH SENSITIVITY [CHEM] Stat TSH ULTRASENSITIVE [CHEM] Stat - Assessment/Plan Last 24 Hours: My Active Orders 02/27/21 16:16 EKG 12 Lead [EKG Documentation Completion] [RC] STAT UA RFX ADAMA AND CULT IF INDIC [URIN] Stat 02/27/21 16:30 Diltiazem 125 mg Sodium Chloride 0.9% [Normal Saline] 100 ml IV TITRATE 02/27/21 16:32 B-TYPE NATRIURETIC PEPTIDE,BNP [CHEM] Stat COMPREHENSIVE METABOLIC PN,CMP [CHEM] Stat MAGNESIUM [CHEM] Stat TROPONIN I HIGH SENSITIVITY [CHEM] Stat TSH ULTRASENSITIVE [CHEM] Stat I have read and agree with the documentation that has been completed regarding this visit. By signing this record, I attest that the documentation was completed in my physical presence and is an accurate record of the encounter."
== END 2021-02-27 18:15 ==
LOC: DL.ED 15:57
DX: I48.91 Unspecified atrial fibrillation (principal); C34.90 Malignant neoplasm of unspecified part of unspecified bronchus or lung; C79.31 Secondary malignant neoplasm of brain; I25.10 Atherosclerotic heart disease of native coronary artery without angina pectoris; E78.00 Pure hypercholesterolemia, unspecified; I10 Essential (primary) hypertension; J44.9 Chronic obstructive pulmonary disease, unspecified; K21.9 Gastro-esophageal reflux disease without esophagitis; E11.9 Type 2 diabetes mellitus without complications; E03.9 Hypothyroidism, unspecified; E66.9 Obesity, unspecified; Z79.02 Long term (current) use of antithrombotics/antiplatelets; Z79.82 Long term (current) use of aspirin; Z79.4 Long term (current) use of insulin; Z88.5 Allergy status to narcotic agent; Z91.011 Allergy to milk products; Z88.2 Allergy status to sulfonamides; Z88.1 Allergy status to other antibiotic agents; Z88.8 Allergy status to other drugs, medicaments and biological substances
CPT/HCPCS: 36415; 70450; 80053; 83735; 83880; 84443; 84484; 85025; 85610; 85730; 93005; 93010; 96365; 96376; 99284; 99285-25; J3490

== ENCOUNTER 2021-03-13 12:42 | Inpatient (IN) | payer MEDICARE, MEDICAID ==
[2021-03-13] MEDS ORDERED: Furosemide 40 MG/4 ML VIAL IVPUSH ONE (13:02)
[2021-03-13] MEDS ORDERED: Albuterol 0.083% 2.5 MG/3 ML Neb Soln NEB ONE (13:02)
--- NOTE | 2021-03-13 13:08 | EDM.PDOC ---
ED HPI GENERAL MEDICAL PROBLEM - General Chief Complaint: Respiratory Problem Stated Complaint: AMBULANCE Time Seen by Provider: 03/13/21 13:01 Source of Information: Reports: Patient History Limitations: Reports: No Limitations - History of Present Illness INITIAL COMMENTS - FREE TEXT/NARRATIVE: Patient comes emergency department today from home by ambulance with concerns of shortness of breath. Patient has a history of coronary artery disease hypertension diabetes new onset atrial fib earlier this month for when she was just recently discharged from [facility]. She also has a history of COPD and they said she had pneumonia and she has been on amoxicillin the last week. They started her on metoprolol and did not put her on any anticoagulation other than her Plavix. She continued to be short of breath since she was discharged from the hospital the 16th of this month. It is gotten much worse over the past couple of days. She does complain of fever and chills subjectively. She complains of tightness in her chest that she has had for over a week. Her shortness of breath is slowly gotten worse over the past couple of days. She did receive a nebulizer in route with some improvement. She denies any diaphoresis. The chest pain is a tightness along the mid anterior sternum. Nothing makes it worse or better. She denies any abdominal pain nausea or vomiting. No hematuria dysuria urinary frequency. No black or tarry stools. She has not weighed herself since she has been discharged from the hospital. She had does have increasing edema to her lower extremities. - Related Data Allergies Allergy/AdvReac Type Severity Reaction Status Date / Time acetaminophen Allergy Rash Verified 02/27/21 16:14 [From Darvocet-N 100] atorvastatin calcium Allergy Cannot Verified 02/27/21 16:14 [From Lipitor] Remember cephalexin [From Keflex] Allergy Swelling Verified 02/27/21 16:14 codeine Allergy Nausea and Verified 02/27/21 16:14 Vomiting lansoprazole [From Prevacid] Allergy Rash Verified 02/27/21 16:14 levofloxacin [From Levaquin] Allergy Blisters Verified 02/27/21 16:14 propoxyphene napsylate Allergy Rash Verified 02/27/21 16:14 [From Darvocet-N 100] Sulfa (Sulfonamide Allergy Cannot Verified 02/27/21 16:14 Antibiotics) Remember tramadol HCl [From Ultram] Allergy Rash Verified 02/27/21 16:14 Milk Allergy Diarrhea Uncoded 09/11/19 12:18 Home Meds: Home Meds Acetaminophen [Tylenol Extra Strength] 500 tab PO DAILY PRN 09/05/13 [History] Calcium Carbonate/Vitamin D3 [Calcium 250+D] 500 mg PO BID 09/05/13 [History] Clopidogrel [Plavix] 75 mg PO DAILY 09/05/13 [History] Diclofenac Sodium [Voltaren 1% Gel] 1 applic TOP ASDIRECTED PRN 09/05/13 [History] Loperamide [Imodium] 2 mg PO DAILY PRN 09/05/13 [History] Mirtazapine [Remeron] 15 mg PO BEDTIME 09/05/13 [History] amLODIPine [Norvasc] 5 mg PO DAILY 09/05/13 [History] Colesevelam [Welchol] 1,875 mg PO BID 11/12/13 [History] DULoxetine [Cymbalta] 60 mg PO BID 11/12/13 [History] Insulin Aspart [NovoLOG] 35 unit SQ TIDMEALS 05/14/16 [History] Aspirin [Adult Low Dose Aspirin EC] 81 mg PO DAILY 03/08/18 [History] Insulin Detemir [Levemir Flextouch] 48 units INJECT BID 03/08/18 [History] Nitroglycerin [Nitrostat] 0.4 mg PO ASDIRECTED 03/08/18 [History] Nystatin 5 ml PO QID PRN 03/08/18 [History] Pantoprazole [ProTONIX] 40 mg PO BID 03/08/18 [History] Potassium Chloride 1 tab PO BID 03/08/18 [History] ClonazePAM [KlonoPIN] 0.5 mg PO BID PRN 03/09/18 [History] Albuterol [Ventolin HFA] 2 puff INH Q4HR PRN 03/26/20 [History] Diphenoxylate HCl/Atropine [Diphenoxylate-Atrop 2.5-0.025] 1 each PO QID PRN 03/26/20 [History] Lidocaine/Prilocaine [EMLA Crm] 1 applic TOP .ASNEEDED PRN 03/26/20 [History] Furosemide [Lasix] 40 mg PO BID 03/27/20 [History] Levothyroxine 200 mcg PO ACBREAKFAST 03/27/20 [History] Losartan [Cozaar] 50 mg PO DAILY 03/27/20 [History] Umeclidinium [place] [Incruse Ellipta*] 1 puff INH DAILY 03/27/20 [History] Past Medical History HEENT History: Reports: Epistaxis, Impaired Vision, Other (See Below) Cardiovascular History: Reports: CAD, High Cholesterol, Hypertension, SOB on Exertion, Other (See Below) Other Cardiovascular History: ISCHEMIC HEART DIESASE Respiratory History: Reports: COPD, Sleep Apnea, Other (See Below) Other Respiratory History: Left sided small cell aggresive cancer; right side squamous cell carcinoma Gastrointestinal History: Reports: Diverticulosis, GERD, Hemorrhoids, Hiatal Hernia, Irritable Bowel Syndrome Other Gastrointestinal History: Focal nodular hyperplasia of liver. HX OF HEPATATIC LESION Genitourinary History: Reports: Renal Calculus, Urinary Incontinence Other [employer] History: cervical cancer in 1980. Post menopausal HRT Musculoskeletal History: Reports: Fibromyalgia, Osteoarthritis, Other (See Below) Neurological History: Reports: Cerebral Aneurysms, CVA Other Neuro History: Embolic stroke involving anterior cerebral artery, right Psychiatric History: Reports: Anxiety, Depression Endocrine/Metabolic History: Reports: Diabetes, Type II, Hypothyroidism, Obesity/BMI 30+ Hematologic History: Reports: None Immunologic History: Reports: None Oncologic (Cancer) History: Reports: Cervix Dermatologic History: Reports: Cellulitis - Infectious Disease History Infectious Disease History: Reports: None Other Infectious Disease History: Shingles 2017 - Past Surgical History Head Surgeries/Procedures: Reports: None HEENT Surgical History: Reports: Tonsillectomy, Other (See Below) Cardiovascular Surgical History: Reports: None Respiratory Surgical History: Reports: None GI Surgical History: Reports: Cholecystectomy Other GI Surgeries/Procedures: FLEX SIG Female Surgical History: Reports: Hysterectomy Neurological Surgical History: Reports: None Other Neurological Surgeries/Procedures: 4 cerebral aneurysms coiled Musculoskeletal Surgical History: Reports: None Oncologic Surgical History: Reports: None Social & Family History - Family History Family Medical History: No Pertinent Family History Cardiac: Reports: Arrhythmia, CAD Other Family History: Cervical cancer Oncologic: Reports: Cervix - Caffeine Use Caffeine Use: Reports: None Other Caffeine Use: AVERAGE OF 4 CUPS DAILY - Living Situation & Occupation Living situation: Reports: with Family Occupation: Retired ED ROS GENERAL - Review of Systems Review Of Systems: Comprehensive ROS is negative, except as noted in HPI. ED EXAM, GENERAL - Physical Exam Exam: See Below Exam Limited By: Respiratory Distress (mild respiratory distress. Only able to speak in 3-4 word sentences and minimally labored breathing.) General Appearance: Alert, WD/WN, Obese (morbid) Eye Exam: Bilateral Eye: EOMI Ears: Normal External Exam Nose: Normal Inspection, Normal Mucosa Throat/Mouth: Normal Inspection Head: Atraumatic, Normocephalic Neck: Normal Inspection, Supple, Non-Tender Respiratory/Chest: Respiratory Distress (Mild only able to speak in 3-4 word sentecnes and mild labored breathing. ), Decreased Breath Sounds (throughout. ), Crackles (bilaterally in the bases. ), Wheezing (expiratory bilaterally. ), Accessory Muscle Use. No: Retractions Cardiovascular: Normal Peripheral Pulses, Tachycardia, Irregularly Irregular GI/Abdominal: Normal Bowel Sounds, Soft, Non-Tender, Other (scattered superficial bruising ecchymosis most likely from insulin injections. Abd is non- tender. ) (Female) Exam: Deferred Rectal (Female) Exam: Deferred Back Exam: Normal Inspection, Full Range of Motion Extremities: Normal Range of Motion, Normal Capillary Refill, Pedal Edema (2+ equal bilaterally. ) Neurological: Alert, Oriented, Normal Cognition, No Motor/Sensory Deficits Psychiatric: Normal Affect, Normal Mood Skin Exam: Warm, Dry, Intact, Normal Color Course - Orders/Labs/Meds Orders: Active Orders 24 hr Category Date Time Status EKG Documentation Completion [RC] STAT Care 03/13/21 12:56 Ordered Peripheral IV Care [RC] . DIRECTED Care 03/13/21 12:56 Ordered RT Aerosol Therapy [RC] ASDIRECTED Care 03/13/21 13:02 Ordered Chest 1V Frontal [CR] Stat Exams 03/13/21 12:56 Ordered B-TYPE NATRIURETIC PEPTIDE,BNP [CHEM] Stat Lab 03/13/21 12:56 Ordered CBC WITH AUTO DIFF [HEME] Stat Lab 03/13/21 12:56 Ordered COMPREHENSIVE METABOLIC PN,CMP [CHEM] Stat Lab 03/13/21 12:56 Ordered CULTURE BLOOD [BC] Stat Lab 03/13/21 13:02 Ordered CULTURE BLOOD [BC] Stat Lab 03/13/21 13:02 Ordered LACTATE SEPSIS W/ REFLEX [CHEM] Stat Lab 03/13/21 13:02 Ordered PROCALCITONIN [REF] Stat Lab 03/13/21 13:02 Ordered TROPONIN I HIGH SENSITIVITY [CHEM] Stat Lab 03/13/21 12:56 Ordered Sodium Chloride 0.9% [Saline Flush] Med 03/13/21 12:56 Ordered 10 ml FLUSH ASDIRECTED PRN Blood Culture x2 Reflex Set [OM.PC] Stat Oth 03/13/21 13:01 Ordered Peripheral IV Insertion Adult [OM.PC] Stat Oth 03/13/21 12:56 Ordered Medication Orders Sodium Chloride (Sodium Chloride 0.9% 10 Ml Syringe) 10 ml FLUSH ASDIRECTED PRN PRN Reason: Keep Vein Open Meds: Medications Generic Name Dose Route Start Last Admin Trade Name Freq PRN Reason Stop Dose Admin Sodium Chloride 10 ml 03/13/21 12:56 Sodium Chloride 0.9% 10 Ml Syringe FLUSH ASDIRECTED PRN Keep Vein Open Discontinued Medications Generic Name Dose Route Start Last Admin Trade Name Freq PRN Reason Stop Dose Admin Albuterol 2.5 mg 03/13/21 13:02 Albuterol 0.083% 2.5 Mg/3 Ml Neb Soln NEB 03/13/21 13:03 ONETIME ONE Furosemide 40 mg 03/13/21 13:02 Furosemide 40 Mg/4 Ml Vial IVPUSH 03/13/21 13:03 ONETIME ONE Departure - Discharge Information - My Orders Last 24 Hours: My Active Orders 03/13/21 12:56 EKG Documentation Completion [RC] STAT Peripheral IV Care [RC] . DIRECTED Chest 1V Frontal [CR] Stat B-TYPE NATRIURETIC PEPTIDE,BNP [CHEM] Stat CBC WITH AUTO DIFF [HEME] Stat COMPREHENSIVE METABOLIC PN,CMP [CHEM] Stat TROPONIN I HIGH SENSITIVITY [CHEM] Stat Sodium Chloride 0.9% [Saline Flush] 10 ml FLUSH ASDIRECTED PRN Peripheral IV Insertion Adult [OM.PC] Stat 03/13/21 13:01 Blood Culture x2 Reflex Set [OM.PC] Stat 03/13/21 13:02 RT Aerosol Therapy [RC] ASDIRECTED CULTURE BLOOD [BC] Stat CULTURE BLOOD [BC] Stat LACTATE SEPSIS W/ REFLEX [CHEM] Stat PROCALCITONIN [REF] Stat - Assessment/Plan Last 24 Hours: My Active Orders 03/13/21 12:56 EKG Documentation Completion [RC] STAT Peripheral IV Care [RC] . DIRECTED Chest 1V Frontal [CR] Stat B-TYPE NATRIURETIC PEPTIDE,BNP [CHEM] Stat CBC WITH AUTO DIFF [HEME] Stat COMPREHENSIVE METABOLIC PN,CMP [CHEM] Stat TROPONIN I HIGH SENSITIVITY [CHEM] Stat Sodium Chloride 0.9% [Saline Flush] 10 ml FLUSH ASDIRECTED PRN Peripheral IV Insertion Adult [OM.PC] Stat 03/13/21 13:01 Blood Culture x2 Reflex Set [OM.PC] Stat 03/13/21 13:02 RT Aerosol Therapy [RC] ASDIRECTED CULTURE BLOOD [BC] Stat CULTURE BLOOD [BC] Stat LACTATE SEPSIS W/ REFLEX [CHEM] Stat PROCALCITONIN [REF] Stat
--- NOTE | 2021-03-13 13:08 | EDM.PDOC ---
ED HPI GENERAL MEDICAL PROBLEM - General Chief Complaint: Respiratory Problem Stated Complaint: AMBULANCE Time Seen by Provider: 03/13/21 13:01 Source of Information: Reports: Patient History Limitations: Reports: No Limitations - History of Present Illness INITIAL COMMENTS - FREE TEXT/NARRATIVE: Patient comes emergency department today from home by ambulance with concerns of shortness of breath. Patient has a history of coronary artery disease hypertension diabetes new onset atrial fib earlier this month for when she was just recently discharged from [facility]. She also has a history of COPD and they said she had pneumonia and she has been on amoxicillin the last week. They started her on metoprolol and did not put her on any anticoagulation other than her Plavix. She continued to be short of breath since she was discharged from the hospital the 16th of this month. It is gotten much worse over the past couple of days. She does complain of fever and chills subjectively. She complains of tightness in her chest that she has had for over a week. Her shortness of breath is slowly gotten worse over the past couple of days. She did receive a nebulizer in route with some improvement. She denies any diaphoresis. The chest pain is a tightness along the mid anterior sternum. Nothing makes it worse or better. She denies any abdominal pain nausea or vomiting. No hematuria dysuria urinary frequency. No black or tarry stools. She has not weighed herself since she has been discharged from the hospital. She had does have increasing edema to her lower extremities. Right Arm Pain Score (Numeric/FACES): 5 - Related Data Allergies Allergy/AdvReac Type Severity Reaction Status Date / Time acetaminophen Allergy Rash Verified 02/27/21 16:14 [From Darvocet-N 100] atorvastatin calcium Allergy Cannot Verified 02/27/21 16:14 [From Lipitor] Remember cephalexin [From Keflex] Allergy Swelling Verified 02/27/21 16:14 codeine Allergy Nausea and Verified 02/27/21 16:14 Vomiting lansoprazole [From Prevacid] Allergy Rash Verified 02/27/21 16:14 levofloxacin [From Levaquin] Allergy Blisters Verified 02/27/21 16:14 propoxyphene napsylate Allergy Rash Verified 02/27/21 16:14 [From Darvocet-N 100] Sulfa (Sulfonamide Allergy Cannot Verified 02/27/21 16:14 Antibiotics) Remember tramadol HCl [From Ultram] Allergy Rash Verified 02/27/21 16:14 Milk Allergy Diarrhea Uncoded 09/11/19 12:18 Home Meds: Home Meds Acetaminophen [Tylenol Extra Strength] 500 tab PO DAILY PRN 09/05/13 [History] Calcium Carbonate/Vitamin D3 [Calcium 250+D] 500 mg PO BID 09/05/13 [History] Clopidogrel [Plavix] 75 mg PO DAILY 09/05/13 [History] Diclofenac Sodium [Voltaren 1% Gel] 1 applic TOP ASDIRECTED PRN 09/05/13 [History] Loperamide [Imodium] 2 mg PO DAILY PRN 09/05/13 [History] Mirtazapine [Remeron] 15 mg PO BEDTIME 09/05/13 [History] amLODIPine [Norvasc] 5 mg PO DAILY 09/05/13 [History] Colesevelam [Welchol] 1,875 mg PO BID 11/12/13 [History] DULoxetine [Cymbalta] 60 mg PO BID 11/12/13 [History] Insulin Aspart [NovoLOG] 35 unit SQ TIDMEALS 05/14/16 [History] Aspirin [Adult Low Dose Aspirin EC] 81 mg PO DAILY 03/08/18 [History] Insulin Detemir [Levemir Flextouch] 48 units INJECT BID 03/08/18 [History] Nitroglycerin [Nitrostat] 0.4 mg PO ASDIRECTED 03/08/18 [History] Nystatin 5 ml PO QID PRN 03/08/18 [History] Pantoprazole [ProTONIX] 40 mg PO BID 03/08/18 [History] Potassium Chloride 1 tab PO BID 03/08/18 [History] ClonazePAM [KlonoPIN] 0.5 mg PO BID PRN 03/09/18 [History] Albuterol [Ventolin HFA] 2 puff INH Q4HR PRN 03/26/20 [History] Diphenoxylate HCl/Atropine [Diphenoxylate-Atrop 2.5-0.025] 1 each PO QID PRN 03/26/20 [History] Lidocaine/Prilocaine [EMLA Crm] 1 applic TOP .ASNEEDED PRN 03/26/20 [History] Furosemide [Lasix] 40 mg PO BID 03/27/20 [History] Levothyroxine 200 mcg PO ACBREAKFAST 03/27/20 [History] Losartan [Cozaar] 50 mg PO DAILY 03/27/20 [History] Umeclidinium [place] [Incruse Ellipta*] 1 puff INH DAILY 03/27/20 [History] Past Medical History HEENT History: Reports: Epistaxis, Impaired Vision, Other (See Below) Cardiovascular History: Reports: CAD, High Cholesterol, Hypertension, SOB on Exertion, Other (See Below) Other Cardiovascular History: ISCHEMIC HEART DIESASE Respiratory History: Reports: COPD, Sleep Apnea, Other (See Below) Other Respiratory History: Left sided small cell aggresive cancer; right side squamous cell carcinoma Gastrointestinal History: Reports: Diverticulosis, GERD, Hemorrhoids, Hiatal Hernia, Irritable Bowel Syndrome Other Gastrointestinal History: Focal nodular hyperplasia of liver. 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 Post menopausal HRT Musculoskeletal History: Reports: Fibromyalgia, Osteoarthritis, Other (See Below) Neurological History: Reports: Cerebral Aneurysms, CVA Other Neuro History: Embolic stroke involving anterior cerebral artery, right Psychiatric History: Reports: Anxiety, Depression Endocrine/Metabolic History: Reports: Diabetes, Type II, Hypothyroidism, Obesity/BMI 30+ Hematologic History: Reports: None Immunologic History: Reports: None Oncologic (Cancer) History: Reports: Cervix Dermatologic History: Reports: Cellulitis - Infectious Disease History Infectious Disease History: Reports: None Other Infectious Disease History: 2017 - Past Surgical History Head Surgeries/Procedures: Reports: None HEENT Surgical History: Reports: Tonsillectomy, Other (See Below) Cardiovascular Surgical History: Reports: None Respiratory Surgical History: Reports: None GI Surgical History: Reports: Cholecystectomy Other GI Surgeries/Procedures: FLEX SIG Female Surgical History: Reports: Hysterectomy Neurological Surgical History: Reports: None Other Neurological Surgeries/Procedures: 4 cerebral aneurysms coiled Musculoskeletal Surgical History: Reports: None Oncologic Surgical History: Reports: None Social & Family History - Family History Family Medical History: No Pertinent Family History Cardiac: Reports: Arrhythmia, CAD Other Family History: Cervical cancer Oncologic: Reports: Cervix - Caffeine Use Caffeine Use: Reports: None Other Caffeine Use: AVERAGE OF 4 CUPS DAILY - Living Situation & Occupation Living situation: Reports: with Family Occupation: Retired ED ROS GENERAL - Review of Systems Review Of Systems: Comprehensive ROS is negative, except as noted in HPI. ED EXAM, GENERAL - Physical Exam Exam: See Below Free Text/Narrative:: Patient comes emergency department today from home by ambulance with concerns of shortness of breath. Patient has a history of coronary artery disease hypertension diabetes new onset atrial fib earlier this month for when she was just recently discharged from [facility]. She also has a history of COPD and they sa id she had pneumonia and she has been on amoxicillin the last week. They started her on metoprolol and did not put her on any anticoagulation other than her Plavix. She continued to be short of breath since she was discharged from the hospital the 16th of this month. It is gotten much worse over the past couple of days. She does complain of fever and chills subjectively. She complains of tightness in her chest that she has had for over a week. Her shortness of breath is slowly gotten worse over the past couple of days. She did receive a nebulizer in route with some improvement. She denies any diaphoresis. The chest pain is a tightness along the mid anterior sternum. Nothing makes it worse or better. She denies any abdominal pain nausea or vomiting. No hematuria dysuria urinary frequency. No black or tarry stools. She has not weighed herself since she has been discharged from the hospital. She had does have increasing edema to her lower extremities. Exam Limited By: Respiratory Distress (mild respiratory distress. Only able to speak in 3-4 word sentences and minimally labored breathing.) General Appearance: Alert, WD/WN, Obese (morbid) Ears: Normal External Exam Nose: Normal Inspection, Normal Mucosa Throat/Mouth: Normal Inspection Head: Atraumatic, Normocephalic Neck: Normal Inspection, Supple, Non-Tender Respiratory/Chest: Respiratory Distress (Mild only able to speak in 3-4 word sentecnes and mild labored breathing. ), Decreased Breath Sounds (throughout. ), Crackles (bilaterally in the bases. ), Wheezing (expiratory bilaterally. ), Accessory Muscle Use. No: Retractions Cardiovascular: Normal Peripheral Pulses, Tachycardia, Irregularly Irregular GI/Abdominal: Normal Bowel Sounds, Soft, Non-Tender, Other (scattered superficial bruising ecchymosis most likely from insulin injections. Abd is non- tender. ) Back Exam: Normal Inspection, Full Range of Motion Extremities: Normal Range of Motion, Normal Capillary Refill, Pedal Edema (2+ equal bilaterally. ) Neurological: Alert, Oriented, Normal Cognition, No Motor/Sensory Deficits Psychiatric: Normal Affect, Normal Mood Skin Exam: Warm, Dry, Intact, Normal Color Course - Vital Signs Last Recorded V/S: Last Vital Signs Temp 97.5 F 03/13/21 16:03 Pulse 115 H 03/13/21 17:27 Resp 25 H 03/13/21 16:03 BP 139/63 03/13/21 17:27 Pulse Ox 97 03/13/21 16:03 - Orders/Labs/Meds Orders: Active Orders 24 hr Category Date Time Status Admission Diagnosis [ADT] Routine ADT 03/13/21 14:52 Ordered Admission Status [Patient Status] [ADT] Routine ADT 03/13/21 14:49 Active Benjamin Catheter Insertion [Insert Urinary Catheter] [OM. Care 03/13/21 14:45 Ordered PC] Q24H CULTURE BLOOD [BC] Stat Lab 03/13/21 13:04 Received CULTURE BLOOD [BC] Stat Lab 03/13/21 13:24 Received PROCALCITONIN [REF] Stat Lab 03/13/21 13:04 Received Sodium Chloride 0.9% [Saline Flush] Med 03/13/21 12:56 Active 10 ml FLUSH ASDIRECTED PRN Blood Culture x2 Reflex Set [OM.PC] Stat Oth 03/13/21 13:01 Ordered Peripheral IV Insertion Adult [OM.PC] Stat Oth 03/13/21 12:56 Ordered Medication Orders Albuterol/Ipratropium (Albuterol/Ipratropium 3.0-0.5 Mg/3 Ml Neb Soln) 3 ml NEB Q4HRRT REUBEN Dextrose/Water (50% Dextrose In Water 50 Ml Syringe) 50 ml IVPUSH Q15M PRN PRN Reason: Hypoglycemia Famotidine (Famotidine 20 Mg Tab) 20 mg PO BID REUBEN Last Admin: 03/13/21 17:20 Dose: Not Given Documented by: TAB Furosemide (Furosemide 20 Mg/2 Ml Vial) 20 mg IVPUSH BIDDIURETIC REUBEN Last Admin: 03/13/21 17:26 Dose: 20 mg Documented by: TAB Glucagon (Glucagon,Human Recombinant 1 Mg Vial) 1 mg IM Q15M PRN PRN Reason: Hypoglycemia Doxycycline Hyclate 100 mg/ (Sodium Chloride) 100 mls @ 100 mls/hr IV Q12HR [facility] Insulin Human Lispro (Insulin Lispro 100 Units/Ml 3 Ml Vial) 0 unit SUBCUT WITHMEALSANDBED [facility]; Protocol Last Admin: 03/13/21 17:27 Dose: 1 unit Documented by: TAB Isosorbide Mononitrate (Isosorbide Mononitrate 60 Mg Tab.Er) 60 mg PO ACBREAKFAST [facility] Last Admin: 03/13/21 17:27 Dose: 60 mg Documented by: TAB Methylprednisolone Sodium Succinate (Methylprednisolone Sodium Succinate 40 Mg/1 Ml Sdv) 80 mg IVPUSH Q8H REUBEN Metoprolol Tartrate (Metoprolol Tartrate 25 Mg Tab) 25 mg PO Q12HR [facility] Last Admin: 03/13/21 17:27 Dose: 25 mg Documented by: TAB Ondansetron HCl (Ondansetron 4 Mg/2 Ml Sdv) 4 mg IVPUSH Q4H PRN PRN Reason: Nausea/Vomiting Sodium Chloride (Sodium Chloride 0.9% 10 Ml Syringe) 10 ml FLUSH ASDIRECTED PRN PRN Reason: Keep Vein Open Last Admin: 03/13/21 13:50 Dose: 10 ml Documented by: Admin: 03/13/21 13:20 Dose: 10 ml Documented by: GLORIA Sodium Chloride (Sodium Chloride 0.9% 10 Ml Syringe) 10 ml FLUSH ASDIRECTED PRN PRN Reason: Keep Vein Open Last Admin: 03/13/21 17:30 Dose: 10 ml Documented by: TAB Labs: Laboratory Tests 03/13/21 03/13/21 03/13/21 Range/Units 13:04 13:04 13:04 WBC 10.7 H (5.0-10.0) 10^3/uL RBC 2.63 L (4.2-5.4) 10^6/uL Hgb 7.7 L (12.0-16.0) g/dL Hct 26.1 L (37.0-47.0) % MCV 99.2 (80-100) fL MCH 29.3 (27.0-34.0) pg MCHC 29.5 L (33.0-35.0) g/dL Plt Count 201 (150-450) 10^3/uL Neut % (Auto) 81.8 H (42.2-75.2) % Lymph % (Auto) 8.8 L (20.5-50.1) % [place]well % (Auto) 8.8 H (2-8) % Eos % (Auto) 0.5 L (1.0-3.0) % Baso % (Auto) 0.1 (0.0-1.0) % VBG pH (7.31-7.41) VBG pCO2 (41-51) mmHg VBG pO2 (35-42) mmHg VBG HCO3 (19-25) mmol/l VBG O2 Saturation (60-80) % VBG Base Excess ((-2)-(+3)) mmol/l O2 Delivery Device Sodium 140 D (136-145) mmol/L Potassium 4.6 (3.5-5.1) mmol/L Chloride 103 (98-107) mmol/L Carbon Dioxide 30 (21-32) mmol/L Anion Gap 11.6 (7-13) mEq/L BUN 27 H (7-18) mg/dL Creatinine 1.22 H (0.55-1.02) mg/dL Est Cr Clr Drug Dosing TNP Estimated GFR (MDRD) 44 BUN/Creatinine Ratio 22.1 (No establ ref range) Glucose 191 H (70-99) mg/dL Lactic Acid 3.5 H* (0.4-2.0) mmol/L Calcium 9.1 (8.5-10.1) mg/dL Total Bilirubin 0.6 (0.2-1.0) mg/dL AST 28 (15-37) U/L ALT 51 (14-59) U/L Alkaline Phosphatase 123 H (46-116) U/L Troponin I High Sens 28 (<=51) pg/mL B-Natriuretic Peptide 249 H (0-100) pg/ml Total Protein 7.0 (6.4-8.2) g/dL Albumin 2.7 L (3.4-5.0) g/dL Globulin 4.3 Albumin/Globulin Ratio 0.63 SARS-CoV-2 RNA (ANIBAL) (NEGATIVE) Blood Type Gel Antibody Screen 03/13/21 03/13/21 03/13/21 Range/Units 13:04 13:41 13:55 WBC (5.0-10.0) 10^3/uL RBC (4.2-5.4) 10^6/uL Hgb (12.0-16.0) g/dL Hct (37.0-47.0) % MCV (80-100) fL MCH (27.0-34.0) pg MCHC (33.0-35.0) g/dL Plt Count (150-450) 10^3/uL Neut % (Auto) (42.2-75.2) % Lymph % (Auto) (20.5-50.1) % [place]well % (Auto) (2-8) % Eos % (Auto) (1.0-3.0) % Baso % (Auto) (0.0-1.0) % VBG pH 7.41 (7.31-7.41) VBG pCO2 47 (41-51) mmHg VBG pO2 41 (35-42) mmHg VBG HCO3 29 H (19-25) mmol/l VBG O2 Saturation 65.4 (60-80) % VBG Base Excess 4.5 H ((-2)-(+3)) mmol/l O2 Delivery Device Nasal cannula Sodium (136-145) mmol/L Potassium (3.5-5.1) mmol/L Chloride (98-107) mmol/L Carbon Dioxide (21-32) mmol/L Anion Gap (7-13) mEq/L BUN (7-18) mg/dL Creatinine (0.55-1.02) mg/dL Est Cr Clr Drug Dosing Estimated GFR (MDRD) BUN/Creatinine Ratio (No establ ref range) Glucose (70-99) mg/dL Lactic Acid (0.4-2.0) mmol/L Calcium (8.5-10.1) mg/dL Total Bilirubin (0.2-1.0) mg/dL AST (15-37) U/L ALT (14-59) U/L Alkaline Phosphatase (46-116) U/L Troponin I High Sens (<=51) pg/mL B-Natriuretic Peptide (0-100) pg/ml Total Protein (6.4-8.2) g/dL Albumin (3.4-5.0) g/dL Globulin Albumin/Globulin Ratio SARS-CoV-2 RNA (ANIBAL) Negative (NEGATIVE) Blood Type A POSITIVE Gel Antibody Screen Negative Meds: Medications Generic Name Dose Route Start Last Admin Trade Name Freq PRN Reason Stop Dose Admin Albuterol/Ipratropium 3 ml 03/13/21 19:00 Albuterol/Ipratropium 3.0-0.5 Mg/3 Ml Neb Soln NEB Q4HRRT REUBEN Dextrose/Water 50 ml 03/13/21 16:07 50% Dextrose In Water 50 Ml Syringe IVPUSH Q15M PRN Hypoglycemia Famotidine 20 mg 03/13/21 16:15 03/13/21 17:20 Famotidine 20 Mg Tab PO Not Given BID REUBEN Furosemide 20 mg 03/13/21 16:15 03/13/21 17:26 Furosemide 20 Mg/2 Ml Vial IVPUSH 20 mg BIDDIURETIC REUBEN Administration Glucagon 1 mg 03/13/21 16:07 Glucagon,Human Recombinant 1 Mg Vial IM Q15M PRN Hypoglycemia Doxycycline Hyclate 100 mg/ 100 mls @ 100 mls/hr 03/13/21 21:00 Sodium Chloride IV Q12HR REUBEN Insulin Human Lispro 0 unit 03/13/21 18:00 03/13/21 17:27 Insulin Lispro 100 Units/Ml 3 Ml Vial SUBCUT 1 unit WITHMEALSANDBED REUBEN Administration Protocol Isosorbide Mononitrate 60 mg 03/13/21 17:00 03/13/21 17:27 Isosorbide Mononitrate 60 Mg Tab.Er PO 60 mg ACBREAKFAST REUBEN Administration Methylprednisolone Sodium Succinate 80 mg 03/13/21 21:00 Methylprednisolone Sodium Succinate 40 Mg/1 Ml Sdv IVPUSH Q8H REUBEN Metoprolol Tartrate 25 mg 03/13/21 16:30 03/13/21 17:27 Metoprolol Tartrate 25 Mg Tab PO 25 mg Q12HR REUBEN Administration Ondansetron HCl 4 mg 03/13/21 16:03 Ondansetron 4 Mg/2 Ml Sdv IVPUSH Q4H PRN Nausea/Vomiting Sodium Chloride 10 ml 03/13/21 12:56 03/13/21 13:50 Sodium Chloride 0.9% 10 Ml Syringe FLUSH 10 ml ASDIRECTED PRN Administration Keep Vein Open Sodium Chloride 10 ml 03/13/21 16:03 03/13/21 17:30 Sodium Chloride 0.9% 10 Ml Syringe FLUSH 10 ml ASDIRECTED PRN Administration Keep Vein Open Discontinued Medications Generic Name Dose Route Start Last Admin Trade Name Gwen PRN Reason Stop Dose Admin Albuterol 2.5 mg 03/13/21 13:02 03/13/21 13:28 Albuterol 0.083% 2.5 Mg/3 Ml Neb Soln NEB 03/13/21 13:03 2.5 mg ONETIME ONE Administration Furosemide 40 mg 03/13/21 13:02 03/13/21 13:18 Furosemide 40 Mg/4 Ml Vial IVPUSH 03/13/21 13:03 40 mg ONETIME ONE Administration Levofloxacin/Dextrose 750 mg/ 150 mls @ 100 mls/hr 03/13/21 13:31 03/13/21 13:49 Premix IV 03/13/21 15:00 100 mls/hr ONETIME ONE Administration Lactated Ringer's 1,000 mls @ 1,000 mls/hr 03/13/21 13:35 03/13/21 13:49 Ringers, Lactated IV 03/13/21 14:34 1,000 mls/hr .BOLUS ONE Administration Methylprednisolone Sodium Succinate 125 mg 03/13/21 13:31 03/13/21 13:49 Methylprednisolone Sodium Succinate 125 Mg/2 Ml Sdv IVPUSH 03/13/21 13:32 125 mg ONETIME ONE Administration - Radiology Interpretation Free Text/Narrative:: Chest x-ray per radiology shows asymmetric dense new left perihilar and lingular consolidation new since January 14, 2021 CT. Right lower lobe mass not appreciated behind the dome of the diaphragm today. No new lung mass or hilar lymphadenopathy but prominence of cardiac silhouette generalized mild pulmonary vascular congestion cardiomyopathy?. No hemopneumothorax or pneumomediastinum. - Re-Assessments/Exams Free Text/Narrative Re-Assessment/Exam: 03/13/21 The patient's port was accessed labs are drawn blood cultures x2. I have quite a concern of congestive heart failure with the edema and her recent history so she was given 40 mg of Lasix IV push. She was given an albuterol nebulizer. Her chest x-ray is quite concerning for worsening pneumonia primarily on the left with a rather large consolidation. With her recent hospitalization and her treatment with amoxicillin she has a high risk for DRSP. Therefore we will treat her with Levaquin 750 mg IV piggyback in the emergency department. She was also given Solu-Medrol 125 mg IV push. She had quite a bit of improvement of her shortness of breath in the mild labored breathing has resolved. Laboratory evaluation with a mild elevation of her WBC at 10.7, hemoglobin at 7.7. Venous blood gases with a pH of 7.41, PCO2 47 PO2 41 this is a venous sample bicarb 29 base excess 4.5. CMP with a creatinine of 1.22, BUN 27 just minimally above baseline. Her lactic acid is 3.5. She was given a liter of lactated Ringer's wide open. Her proBNP is minimally elevated at 249. Troponin high-sensitivity is normal at 28. Her Covid is negative. With my concerns of worsening pneumonia with recent amoxicillin management as well as her risk for DRSP and her comorbid status and her respiratory status and failure of outpatient management I called and spoke with Dr. Roach. HPI ER COURSE findings and concerns were relayed to him verbally over the phone. She does have sepsis without septic shock and a worsening pneumonia. He accepted the patient into her care here in [place]. I discussed the findings and concerns with the patient of her work-up today. She also is quite comorbid with her lung cancer with her metastatic disease to her brain that is not currently seeking any oncology treatment. She also has COPD. I would worry about her going home and worsening. She is comfortable with this plan of admission and her questions were answered. 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 COPD (chronic obstructive pulmonary disease) Qualifiers: COPD type: COPD with acute exacerbation Qualified Code(s): J44.1 - Chronic obstructive pulmonary disease with (acute) exacerbation Pneumonia Qualifiers: Pneumonia type: due to unspecified organism Laterality: left Lung location: unspecified part of lung Qualified Code(s): J18.9 - Pneumonia, unspecified organism Anemia Qualifiers: Anemia type: unspecified type Qualified Code(s): D64.9 - Anemia, unspecified Sepsis Qualifiers: Sepsis type: sepsis due to unspecified organism Sepsis acute organ dysfunction status: with acute organ dysfunction Severe sepsis acute organ dysfunction type: unspecified Severe sepsis shock status: without septic shock Qualified Code(s): A41.9 - Sepsis, unspecified organism - Discharge Information Sepsis Event Note (ED) - Focused Exam Vital Signs: Vital Signs Temp Pulse Resp BP Pulse Ox Pulse Ox 03/13/21 13:50 97.8 F 100 22 H 129/107 H 98 03/13/21 13:02 82 98 - My Orders Last 24 Hours: My Active Orders 03/13/21 12:56 Sodium Chloride 0.9% [Saline Flush] 10 ml FLUSH ASDIRECTED PRN Peripheral IV Insertion Adult [OM.PC] Stat 03/13/21 13:01 Blood Culture x2 Reflex Set [OM.PC] Stat 03/13/21 13:04 CULTURE BLOOD [BC] Stat PROCALCITONIN [REF] Stat 03/13/21 13:24 CULTURE BLOOD [BC] Stat 03/13/21 14:45 Benjamin Catheter Insertion [Insert Urinary Catheter] [OM.PC] Q24H 03/13/21 14:49 Admission Status [Patient Status] [ADT] Routine 03/13/21 14:52 Admission Diagnosis [ADT] Routine - Assessment/Plan Last 24 Hours: My Active Orders 03/13/21 12:56 Sodium Chloride 0.9% [Saline Flush] 10 ml FLUSH ASDIRECTED PRN Peripheral IV Insertion Adult [OM.PC] Stat 03/13/21 13:01 Blood Culture x2 Reflex Set [OM.PC] Stat 03/13/21 13:04 CULTURE BLOOD [BC] Stat PROCALCITONIN [REF] Stat 03/13/21 13:24 CULTURE BLOOD [BC] Stat 03/13/21 14:45 Benjamin Catheter Insertion [Insert Urinary Catheter] [OM.PC] Q24H 03/13/21 14:49 Admission Status [Patient Status] [ADT] Routine 03/13/21 14:52 Admission Diagnosis [ADT] Routine
--- NOTE | 2021-03-13 13:10 | PCM.EKG ---
#1 Interpretation EKG Date: 03/13/21 Time: 12:54 Rhythm: A-Fib Rate (Beats/Min): 134 [place]: Normal P-Wave: Absent QRS: Normal ST-T: Normal QT: Prolonged Comparison: No Change
[2021-03-13] MEDS: Sodium Chloride 0.9% 10 ML Syringe FLUSH PRN ×8 (13:20→22:31)
--- NOTE | 2021-03-13 13:24 | CR ---
EXAMINATION: Chest 1V Frontal SEX: Female AGE: 70 years CLINICAL HISTORY: 70-year-old obese diabetic female reported on previous CT exams over the past year to have "right lower lobe lung malignancy. Now SOB. Interpretation: 1. Right supraclavicular central venous line. External monitor tech leads. 2.*Asymmetric dense new left parahilar and lingular consolidation (new since [address] 3. "Right lower lobe mass" not appreciated behind the dome of the diaphragm today. 4. No new lung mass or hilar lymphadenopathy but prominence of cardiac silhouette and generalized mild pulmonary vascular congestion. Cardiomyopathy? 5. No pneumothorax or pneumomediastinum. Midline tracheal bronchial airway unremarkable.
[2021-03-13] MEDS ORDERED: methylPREDNISolone Sodium Succinate 125 MG/2 ML SDV IVPUSH ONE (13:31)
[2021-03-13] MEDS ORDERED: Levofloxacin/Dextrose 5%-Water 750 MG in Premix Bag 1 BAG IV ONE (13:31)
[2021-03-13] MEDS ORDERED: Lactated Ringers 1,000 ML IV ONE (13:35)
[2021-03-13 13:56] LABS: BASE EXCESS VENOUS 4.5 mmol/l ((-2)-(+3)); BICARBONATE,VENOUS 29 mmol/l (19-25); O2 DELIVERY DEVICE NASAL CANNULA; O2 SATURATION VENOUS 65.4 % (60-80); PCO2 VENOUS 47 mmHg (41-51); PH,VENOUS 7.41 (7.31-7.41); PO2 VENOUS 41 mmHg (35-42)
[2021-03-13 14:20] LABS: ANION GAP 11.6 mEq/L (7-13); CHLORIDE,CL 103 mmol/L (98-107); SODIUM,NA 140 mmol/L (136-145)
[2021-03-13] MEDS ORDERED: Ondansetron 4 MG/2 ML SDV IVPUSH PRN (16:03)
[2021-03-13] MEDS ORDERED: 50% Dextrose in Water 50 ML Syringe IVPUSH PRN (16:07)
[2021-03-13] MEDS ORDERED: Glucagon,Human Recombinant 1 MG Vial IM PRN (16:07)
--- NOTE | 2021-03-13 16:18 | PCM.HP ---
H&P History of Present Illness - General Date of Service: 03/13/21 Admit Problem/Dx: Admission Diagnosis/Problem Admission Diagnosis/Problem Pneumonia Source of Information: Patient - History of Present Illness Initial Comments - Free Text/Narative: The patient is a 70-year-old female who presents to complain of dyspnea. She states she started feeling dyspneic almost 24 hours prior to hospitalization. She states at that time it but dyspnea was of sudden onset. Since that time she developed nausea, cough which is nonproductive, wheeze, chest pain in the substernal area described as a pressure which has been intermittent since the time of onset without radiation. She denies fever, rigors, vomiting, abdominal pain, diarrhea, myalgia, any new peripheral edema, anosmia, dysgeusia. Patient has known history of COPD, grade 1 diastolic dysfunction. She presents for further evaluation - Related Data Allergies/Adverse Reactions: Allergies Allergy/AdvReac Type Severity Reaction Status Date / Time acetaminophen Allergy Rash Verified 02/27/21 16:14 [From Darvocet-N 100] atorvastatin calcium Allergy Cannot Verified 02/27/21 16:14 [From Lipitor] Remember cephalexin [From Keflex] Allergy Swelling Verified 02/27/21 16:14 codeine Allergy Nausea and Verified 02/27/21 16:14 Vomiting lansoprazole [From Prevacid] Allergy Rash Verified 02/27/21 16:14 levofloxacin [From Levaquin] Allergy Blisters Verified 02/27/21 16:14 propoxyphene napsylate Allergy Rash Verified 02/27/21 16:14 [From Darvocet-N 100] Sulfa (Sulfonamide Allergy Cannot Verified 02/27/21 16:14 Antibiotics) Remember tramadol HCl [From Ultram] Allergy Rash Verified 02/27/21 16:14 Milk Allergy Diarrhea Uncoded 09/11/19 12:18 Home Medications: Home Meds Acetaminophen [Tylenol Extra Strength] 500 tab PO DAILY PRN 09/05/13 [History] Calcium Carbonate/Vitamin D3 [Calcium 250+D] 500 mg PO BID 09/05/13 [History] Clopidogrel [Plavix] 75 mg PO DAILY 09/05/13 [History] Diclofenac Sodium [Voltaren 1% Gel] 1 applic TOP ASDIRECTED PRN 09/05/13 [History] Loperamide [Imodium] 2 mg PO DAILY PRN 09/05/13 [History] Mirtazapine [Remeron] 15 mg PO BEDTIME 09/05/13 [History] amLODIPine [Norvasc] 5 mg PO DAILY 09/05/13 [History] Colesevelam [Welchol] 1,875 mg PO BID 11/12/13 [History] DULoxetine [Cymbalta] 60 mg PO BID 11/12/13 [History] Insulin Aspart [NovoLOG] 35 unit SQ TIDMEALS 05/14/16 [History] Aspirin [Adult Low Dose Aspirin EC] 81 mg PO DAILY 03/08/18 [History] Insulin Detemir [Levemir Flextouch] 48 units INJECT BID 03/08/18 [History] Nitroglycerin [Nitrostat] 0.4 mg PO ASDIRECTED 03/08/18 [History] Nystatin 5 ml PO QID PRN 03/08/18 [History] Pantoprazole [ProTONIX] 40 mg PO BID 03/08/18 [History] Potassium Chloride 1 tab PO BID 03/08/18 [History] ClonazePAM [KlonoPIN] 0.5 mg PO BID PRN 03/09/18 [History] Albuterol [Ventolin HFA] 2 puff INH Q4HR PRN 03/26/20 [History] Diphenoxylate HCl/Atropine [Diphenoxylate-Atrop 2.5-0.025] 1 each PO QID PRN 03/26/20 [History] Lidocaine/Prilocaine [EMLA Crm] 1 applic TOP .ASNEEDED PRN 03/26/20 [History] Furosemide [Lasix] 40 mg PO BID 03/27/20 [History] Levothyroxine 200 mcg PO ACBREAKFAST 03/27/20 [History] Losartan [Cozaar] 50 mg PO DAILY 03/27/20 [History] Umeclidinium Excelsior [Incruse Ellipta*] 1 puff INH DAILY 03/27/20 [History] Past Medical History HEENT History: Reports: Epistaxis, Impaired Vision, Other (See Below) Cardiovascular History: Reports: CAD, High Cholesterol, Hypertension, SOB on Exertion, Other (See Below) Other Cardiovascular History: ISCHEMIC HEART DIESASE Respiratory History: Reports: COPD, Sleep Apnea, Other (See Below) Other Respiratory History: Left sided small cell aggresive cancer; right side squamous cell carcinoma Gastrointestinal History: Reports: Diverticulosis, GERD, Hemorrhoids, Hiatal Hernia, Irritable Bowel Syndrome Other Gastrointestinal History: Focal nodular hyperplasia of liver. HX OF HEPATATIC LESION Genitourinary History: Reports: Renal Calculus, Urinary Incontinence Other OB/BYN History: cervical cancer in 1980. Post menopausal HRT Musculoskeletal History: Reports: Fibromyalgia, Osteoarthritis, Other (See Below) Neurological History: Reports: Cerebral Aneurysms, CVA Other Neuro History: Embolic stroke involving anterior cerebral artery, right Psychiatric History: Reports: Anxiety, Depression Endocrine/Metabolic History: Reports: Diabetes, Type II, Hypothyroidism, Obesity/BMI 30+ Hematologic History: Reports: None Immunologic History: Reports: None Oncologic (Cancer) History: Reports: Cervix Dermatologic History: Reports: Cellulitis - Infectious Disease History Infectious Disease History: Reports: None Other Infectious Disease History: Shingles 2017 - Past Surgical History Head Surgeries/Procedures: Reports: None HEENT Surgical History: Reports: Tonsillectomy, Other (See Below) Cardiovascular Surgical History: Reports: None Respiratory Surgical History: Reports: None GI Surgical History: Reports: Cholecystectomy Other GI Surgeries/Procedures: FLEX SIG Female Surgical History: Reports: Hysterectomy Neurological Surgical History: Reports: None Other Neurological Surgeries/Procedures: 4 cerebral aneurysms coiled Musculoskeletal Surgical History: Reports: None Oncologic Surgical History: Reports: None Social & Family History - Family History Family Medical History: No Pertinent Family History Cardiac: Reports: Arrhythmia, CAD Other Family History: Cervical cancer Oncologic: Reports: Cervix - Tobacco Use Tobacco Use Status *Q: Never Tobacco User Second Hand Smoke Exposure: No - Caffeine Use Caffeine Use: Reports: Coffee Other Caffeine Use: AVERAGE OF 4 CUPS DAILY - Recreational Drug Use Recreational Drug Use: No - Living Situation & Occupation Living situation: Reports: with Family Occupation: Retired H&P Review of Systems - Review of Systems: Review Of Systems: See Below General: Reports: No Symptoms HEENT: Reports: No Symptoms Pulmonary: Reports: Shortness of Breath, Cough Cardiovascular: Reports: Chest Pain Gastrointestinal: Reports: No Symptoms Genitourinary: Reports: No Symptoms Musculoskeletal: Reports: No Symptoms Skin: Reports: No Symptoms Psychiatric: Reports: No Symptoms Neurological: Reports: No Symptoms Hematologic/Lymphatic: Reports: No Symptoms Immunologic: Reports: No Symptoms Exam - Exam Exam: See Below - Vital Signs Vital Signs: Last Vital Signs Temp 97.8 F 03/13/21 13:50 Pulse 100 03/13/21 13:50 Resp 22 H 03/13/21 13:50 BP 129/107 H 03/13/21 13:50 Pulse Ox 98 03/13/21 13:50 - Exam General: Alert, Oriented, 4 HEENT: PERRLA, Hearing Intact, Mucosa Moist & [place], Nares Patent, Normal Nasal Septum, Posterior Pharynx Clear, Conjunctiva Clear, EOMI, EACs Clear, TMs Clear Neck: Supple, Trachea Midline, 2 Lungs: Rhonchi, Wheezing Cardiovascular: Regular Rate, Normal S1, Normal S2, Irregular Rhythm GI/Abdominal Exam: Normal Bowel Sounds, Soft, Non-Tender, No Organomegaly, No Distention, No Abnormal Bruit, No Mass, Pelvis Stable Back Exam: Normal Inspection, Full Range of Motion, NT Extremities: Normal Inspection, Normal Range of Motion, Non-Tender, No Pedal Edema, Normal Capillary Refill Skin: Warm, Dry, Intact Neurological: Cranial Nerves Intact, Reflexes Equal Bilateral Neuro Extensive - Mental Status: Alert, Oriented x3, Normal Mood/Affect, Normal Cognition Neuro Extensive - Motor, Sensory, Reflexes: CN II-XII Intact, Normal Gait, Normal Reflexes Psychiatric: Alert, Normal Affect, Normal Mood - Patient Data Lab Results Last 24 hrs: Laboratory Results - last 24 hr 03/13/21 03/13/21 03/13/21 Range/Units 13:04 13:04 13:04 WBC 10.7 H (5.0-10.0) 10^3/uL RBC 2.63 L (4.2-5.4) 10^6/uL Hgb 7.7 L (12.0-16.0) g/dL Hct 26.1 L (37.0-47.0) % MCV 99.2 (80-100) fL MCH 29.3 (27.0-34.0) pg MCHC 29.5 L (33.0-35.0) g/dL Plt Count 201 (150-450) 10^3/uL Neut % (Auto) 81.8 H (42.2-75.2) % Lymph % (Auto) 8.8 L (20.5-50.1) % [place] % (Auto) 8.8 H (2-8) % Eos % (Auto) 0.5 L (1.0-3.0) % Baso % (Auto) 0.1 (0.0-1.0) % VBG pH (7.31-7.41) VBG pCO2 (41-51) mmHg VBG pO2 (35-42) mmHg VBG HCO3 (19-25) mmol/l VBG O2 Saturation (60-80) % VBG Base Excess ((-2)-(+3)) mmol/l O2 Delivery Device Sodium 140 D (136-145) mmol/L Potassium 4.6 (3.5-5.1) mmol/L Chloride 103 (98-107) mmol/L Carbon Dioxide 30 (21-32) mmol/L Anion Gap 11.6 (7-13) mEq/L BUN 27 H (7-18) mg/dL Creatinine 1.22 H (0.55-1.02) mg/dL Est Cr Clr Drug Dosing TNP Estimated GFR (MDRD) 44 BUN/Creatinine Ratio 22.1 (No establ ref range) Glucose 191 H (70-99) mg/dL Lactic Acid 3.5 H* (0.4-2.0) mmol/L Calcium 9.1 (8.5-10.1) mg/dL Total Bilirubin 0.6 (0.2-1.0) mg/dL AST 28 (15-37) U/L ALT 51 (14-59) U/L Alkaline Phosphatase 123 H (46-116) U/L Troponin I High Sens 28 (<=51) pg/mL B-Natriuretic Peptide 249 H (0-100) pg/ml Total Protein 7.0 (6.4-8.2) g/dL Albumin 2.7 L (3.4-5.0) g/dL Globulin 4.3 Albumin/Globulin Ratio 0.63 SARS-CoV-2 RNA (ANIBAL) (NEGATIVE) Blood Type Gel Antibody Screen 03/13/21 03/13/21 03/13/21 Range/Units 13:04 13:41 13:55 WBC (5.0-10.0) 10^3/uL RBC (4.2-5.4) 10^6/uL Hgb (12.0-16.0) g/dL Hct (37.0-47.0) % MCV (80-100) fL MCH (27.0-34.0) pg MCHC (33.0-35.0) g/dL Plt Count (150-450) 10^3/uL Neut % (Auto) (42.2-75.2) % Lymph % (Auto) (20.5-50.1) % [place] % (Auto) (2-8) % Eos % (Auto) (1.0-3.0) % Baso % (Auto) (0.0-1.0) % VBG pH 7.41 (7.31-7.41) VBG pCO2 47 (41-51) mmHg VBG pO2 41 (35-42) mmHg VBG HCO3 29 H (19-25) mmol/l VBG O2 Saturation 65.4 (60-80) % VBG Base Excess 4.5 H ((-2)-(+3)) mmol/l O2 Delivery Device Nasal cannula Sodium (136-145) mmol/L Potassium (3.5-5.1) mmol/L Chloride (98-107) mmol/L Carbon Dioxide (21-32) mmol/L Anion Gap (7-13) mEq/L BUN (7-18) mg/dL Creatinine (0.55-1.02) mg/dL Est Cr Clr Drug Dosing Estimated GFR (MDRD) BUN/Creatinine Ratio (No establ ref range) Glucose (70-99) mg/dL Lactic Acid (0.4-2.0) mmol/L Calcium (8.5-10.1) mg/dL Total Bilirubin (0.2-1.0) mg/dL AST (15-37) U/L ALT (14-59) U/L Alkaline Phosphatase (46-116) U/L Troponin I High Sens (<=51) pg/mL B-Natriuretic Peptide (0-100) pg/ml Total Protein (6.4-8.2) g/dL Albumin (3.4-5.0) g/dL Globulin Albumin/Globulin Ratio SARS-CoV-2 RNA (ANIBAL) Negative (NEGATIVE) Blood Type A POSITIVE Gel Antibody Screen Negative Result Diagrams: 03/13/21 13:04 03/13/21 13:04 Problem List Initiated/Reviewed/Updated: Yes Orders Last 24hrs: Active Orders 24 hr Category Date Time Status Admission Diagnosis [ADT] Routine ADT 03/13/21 14:52 Ordered Admission Status [Patient Status] [ADT] Routine ADT 03/13/21 14:49 Active Antiembolic Devices [RC] PER UNIT ROUTINE Care 03/13/21 16:05 Ordered Blood Glucose Check, Bedside [RC] WITHMEALSANDBED Care 03/13/21 16:03 Ordered Cardiac Monitoring [RC] CONTINUOUS Care 03/13/21 16:04 Ordered EKG 12 Lead [EKG Documentation Completion] [RC] ROUTINE Care 03/14/21 06:00 Ordered Benjamin Catheter Insertion [Insert Urinary Catheter] [OM. Care 03/13/21 14:45 Ordered PC] Q24H Height and Weight [RC] DAILY Care 03/13/21 16:03 Ordered Intake and Output [RC] QSHIFT Care 03/13/21 16:04 Ordered Oxygen Therapy [RC] PRN Care 03/13/21 16:03 Ordered Peripheral IV Care [RC] . DIRECTED Care 03/13/21 16:05 Ordered RT Aerosol Therapy [RC] ASDIRECTED Care 03/13/21 16:07 Ordered Up With Assistance [RC] ASDIRECTED Care 03/13/21 16:03 Ordered Vital Signs [RC] Q4H Care 03/13/21 16:03 Ordered Consult to Case Management/Client Account Specialist [CONS] Cons 03/13/21 16:03 Ordered Routine Consult to Hospice [CONS] Routine Cons 03/13/21 16:08 Ordered Consistent Carbohydrate Diet [DIET] Diet 03/13/21 Lunch Ordered CBC WITH AUTO DIFF [HEME] Routine Lab 03/14/21 05:00 Ordered CULTURE BLOOD [BC] Stat Lab 03/13/21 13:04 Received CULTURE BLOOD [BC] Stat Lab 03/13/21 13:24 Received FERRITIN [CHEM] Routine Lab 03/13/21 16:05 Ordered IRON/TIBC [CHEM] Routine Lab 03/13/21 16:05 Ordered OCCULT BLOOD DIAGNOSTIC [OP] Routine Lab 03/13/21 16:06 Ordered PROCALCITONIN [REF] Stat Lab 03/13/21 13:04 Received TROPONIN I HIGH SENSITIVITY [CHEM] Q6H Lab 03/13/21 16:09 Ordered TROPONIN I HIGH SENSITIVITY [CHEM] Q6H Lab 03/13/21 22:09 Ordered TROPONIN I HIGH SENSITIVITY [CHEM] Q6H Lab 03/14/21 04:09 Ordered Albuterol/Ipratropium [DuoNeb 3.0-0.5 MG/3 ML] Med 03/13/21 19:00 Ordered 3 ml NEB Q4HRRT Dextrose 50% in Water Med 03/13/21 16:07 Ordered 50 ml IVPUSH Q15M PRN Doxycycline [Vibramycin] 100 mg Med 03/13/21 21:00 Ordered Sodium Chloride 0.9% [Normal Saline] 100 ml IV Q12HR Famotidine [Pepcid] Med 03/13/21 16:15 Ordered 20 mg PO BID Furosemide [Lasix] Med 03/13/21 16:15 Ordered 20 mg IVPUSH BIDDIURETIC Glucagon,Human Recombinant [GlucaGen] Med 03/13/21 16:07 Ordered 1 mg IM Q15M PRN Insulin Lispro [HumaLOG] Med 03/13/21 18:00 Ordered See Protocol SUBCUT WITHMEALSANDBED Ondansetron [Zofran] Med 03/13/21 16:03 Ordered 4 mg IVPUSH Q4H PRN Sodium Chloride 0.9% [Saline Flush] Med 03/13/21 12:56 Active 10 ml FLUSH ASDIRECTED PRN Sodium Chloride 0.9% [Saline Flush] Med 03/13/21 16:03 Ordered 10 ml FLUSH ASDIRECTED PRN methylPREDNISolone Sod Succ [Solu-MEDROL] Med 03/13/21 16:15 Ordered 80 mg IVPUSH Q8H Blood Culture x2 Reflex Set [OM.PC] Stat Ot 03/13/21 13:01 Ordered Peripheral IV Insertion Adult [OM.PC] Routine Ot 03/13/21 16:03 Ordered Peripheral IV Insertion Adult [OM.PC] Stat Ot 03/13/21 12:56 Ordered Saline Lock Insert [OM.PC] Routine Oth 03/13/21 16:03 Ordered Sequential Compression Device [OM.PC] Per Unit Routine Ot 03/13/21 16:04 Ordered Resuscitation Status Routine Resus Stat 03/13/21 16:03 Ordered Medication Orders Albuterol/Ipratropium (Albuterol/Ipratropium 3.0-0.5 Mg/3 Ml Neb Soln) 3 ml NEB Q4HRRT REUBEN Dextrose/Water (50% Dextrose In Water 50 Ml Syringe) 50 ml IVPUSH Q15M PRN PRN Reason: Hypoglycemia Famotidine (Famotidine 20 Mg Tab) 20 mg PO BID REUBEN Furosemide (Furosemide 20 Mg/2 Ml Vial) 20 mg IVPUSH BIDDIURETIC REUBEN Glucagon (Glucagon,Human Recombinant 1 Mg Vial) 1 mg IM Q15M PRN PRN Reason: Hypoglycemia Doxycycline Hyclate 100 mg/ (Sodium Chloride) 100 mls @ 100 mls/hr IV Q12HR REUBEN Insulin Human Lispro (Insulin Lispro 100 Units/Ml 3 Ml Vial) 0 unit SUBCUT WITHMEALSANDBED REUBEN; Protocol Methylprednisolone Sodium Succinate (Methylprednisolone Sodium Succinate 40 Mg/1 Ml Sdv) 80 mg IVPUSH Q8H REUBEN Ondansetron HCl (Ondansetron 4 Mg/2 Ml Sdv) 4 mg IVPUSH Q4H PRN PRN Reason: Nausea/Vomiting Sodium Chloride (Sodium Chloride 0.9% 10 Ml Syringe) 10 ml FLUSH ASDIRECTED PRN PRN Reason: Keep Vein Open Last Admin: 03/13/21 13:50 Dose: 10 ml Documented by: Admin: 03/13/21 13:20 Dose: 10 ml Documented by: GLORIA Sodium Chloride (Sodium Chloride 0.9% 10 Ml Syringe) 10 ml FLUSH ASDIRECTED PRN PRN Reason: Keep Vein Open Assessment/Plan Comment:: Surgical History: Cholecystectomy, hysterectomy, tonsillectomy, cerebral aneurysm coiling x4 Family History: Cancer, stroke, diabetes, coronary artery disease, hypertension, hyperlipidemia Social History: Tobacco: Former smoker Alcohol: Currently none. Has remote history of alcohol use Caffeine: Denies Drugs: Never Allergies: Statins/Lipitor, Keflex, codeine, Prevacid, Levaquin, Tylenol, propoxyphene, Ultram, Toradol, sulfa, lactose intolerant Code Status: DNR, DNI Assessment / Plan: Dyspnea secondary to COPD exacerbation versus fluid overload given her history of grade 1 diastolic dysfunction COPD, O2 dependent 2 L. Solu-Medrol 80 mg IV every 8 hours plus doxycycline 100 g IV every 12 hours plus DuoNeb every 4 hours while awake Grade 1 diastolic dysfunction with current pulmonary vascular congestion. Strict I's/O. Daily weight. Monitor patient on telemetry and checks her cardiac enzymes. Lasix 20 mg IV twice daily Chest pain, rule out ACS. Will monitor patient on telemetry and check serial enzymes. Will monitor the patient's symptoms at this time. No antiplatelet agents due to her anemia. Lipitor 20 mg p.o. nightly plus metoprolol 25 mg p.o. twice daily plus Imdur 30 mg p.o. daily History of cervical cancer, status post hysterectomy. The patient indicates that she is in remission and no longer requires to be monitored for this medical condition by Chronic kidney disease, baseline creatinine approximately 1.2. Will monitor creatinine intermittently Atrial fibrillation. Telemetry monitoring. Metoprolol 25 mg p.o. twice daily Small cell lung cancer, with metastasis including the brain, status post chemotherapy, status post radiation therapy. 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 Hospice consult History of CVA Degenerative disc disease Fibromyalgia Osteoarthritis Osteopenia Anxiety Hypothyroidism Depression Anemia. Monitor hemoglobin level intermittently. Check serum ferritin, iron panel, fecal occult blood Coronary artery disease. Metoprolol 25 mg p.o. twice daily plus Lipitor 20 mg p.o. nightly plus Imdur 30 mg p.o. daily Diabetes. Will check Fatimah glucose before every meal and at bedtime and provide sulci scale GERD. Pepcid 20 mg p.o. twice daily Hyperlipidemia. Lipitor 20 mg p.o. nightly Hypertension. Lasix 20 mg IV twice daily plus metoprolol 25 mg p.o. twice daily plus Imdur 30 mg p.o. daily Obesity. Patient be counseled regarding lifestyle modification Obstructive sleep apnea. Patient noncompliant with CPAP/BiPAP Medical noncompliance. Patient be counseled regarding medical compliance Diverticulosis IBS History of nephrolithiasis Hepatic focal nodular hyperplasia. Outpatient follow-up with gastroe nterology/hepatology upon discharge History of cerebral aneurysm, status post coiling x4 History of esophageal varices Hepatic steatosis/cirrhosis History of vitamin B12 deficiency DVT prophylaxis. Bilateral SCD Disposition: Anticipate discharge within 72 hours. I requested case management/social service technician evaluate the patient to assist in placement upon discharge. I request that hospice evaluate the patient given her terminal small cell lung cancer with metastasis for which she is no longer being offered any treatment options END OF DOCTOR EMAMIS HISTORY AND PHYSICAL / CONSULTATION NOTE
[2021-03-13] MEDS ORDERED: Metoprolol Tartrate 25 MG Tab PO SCH (16:30)
[2021-03-13] MEDS: Famotidine 20 MG Tab PO SCH ×2 (17:20→21:06)
[2021-03-13] MEDS: Furosemide 20 MG/2 ML VIAL IVPUSH SCH (17:26)
[2021-03-13] MEDS: Isosorbide Mononitrate 60 MG Tab.ER PO SCH (17:27)
[2021-03-13] MEDS: Insulin Lispro 100 Units/ML 3 ML Vial SUBCUT SCH ×2 (17:27→21:48)
[2021-03-13] MEDS: Albuterol/Ipratropium 3.0-0.5 MG/3 ML Neb Soln NEB SCH ×2 (18:40→22:34)
[2021-03-13] MEDS: Iron Sucrose Complex 100 MG in Sodium Chloride 0.9% 100 ML IV SCH (19:09)
[2021-03-13] MEDS: methylPREDNISolone Sodium Succinate 40 MG/1 ML SDV IVPUSH SCH (20:51)
[2021-03-13] MEDS: Doxycycline 100 MG in Sodium Chloride 0.9% 100 ML IV SCH (21:02)
[2021-03-13] MEDS: Acetaminophen 325 MG Tab PO PRN (21:39)
[2021-03-13] MEDS: Menthol/Methyl Salicylate 85 GM Tube TOP PRN (21:40)
[2021-03-14] MEDS: Albuterol/Ipratropium 3.0-0.5 MG/3 ML Neb Soln NEB SCH ×6 (03:11→23:34)
[2021-03-14] MEDS: Acetaminophen 325 MG Tab PO PRN ×2 (03:47→09:33)
[2021-03-14] MEDS: Sodium Chloride 0.9% 10 ML Syringe FLUSH PRN ×2 (05:50→13:16)
[2021-03-14] MEDS: methylPREDNISolone Sodium Succinate 40 MG/1 ML SDV IVPUSH SCH ×3 (05:50→20:40)
[2021-03-14] MEDS: Isosorbide Mononitrate 60 MG Tab.ER PO SCH (05:58)
--- NOTE | 2021-03-14 08:00 | PCM.PN ---
- General Info Date of Service: 03/14/21 Subjective Update: The patient indicates that her respiratory status has improved greatly compared to my encounter with her on 2021-03-13. She indicates that her she would rate her respiratory status as a 6 out of 10 if 10 is her baseline. Overnight she denies fever, rigors, nausea, vomiting, abdominal pain, chest pain, lightheadedness, dizziness, palpitations, sensation rapid heartbeat, sensation near the heartbeat. She complains of cough which is nonproductive as well as wheeze. I explained to the patient her current medical condition and plan of care and I have answered all of her questions - Review of Systems General: Reports: No Symptoms HEENT: Reports: No Symptoms Pulmonary: Reports: Shortness of Breath Cardiovascular: Reports: No Symptoms Gastrointestinal: Reports: No Symptoms Genitourinary: Reports: No Symptoms Musculoskeletal: Reports: No Symptoms Skin: Reports: No Symptoms Neurological: Reports: No Symptoms Psychiatric: Reports: No Symptoms - Patient Data Vitals - Most Recent: Last Vital Signs Temp 96.8 F L 03/14/21 04:00 Pulse 67 03/14/21 07:45 Resp 20 03/14/21 04:00 BP 135/77 03/14/21 04:00 Pulse Ox 97 03/14/21 07:45 Weight - Most Recent: 304 lb 4.8 oz I&O - Last 24 Hours: Intake & Output 03/13/21 03/14/21 03/14/21 22:59 06:59 14:59 Intake Total 87 400 Output Total 1100 750 Balance -1013 -350 Lab Results Last 24 Hours: Laboratory Results - last 24 hr 03/13/21 03/13/21 03/13/21 Range/Units 13:04 13:04 13:04 WBC 10.7 H (5.0-10.0) 10^3/uL RBC 2.63 L (4.2-5.4) 10^6/uL Hgb 7.7 L (12.0-16.0) g/dL Hct 26.1 L (37.0-47.0) % MCV 99.2 (80-100) fL MCH 29.3 (27.0-34.0) pg MCHC 29.5 L (33.0-35.0) g/dL Plt Count 201 (150-450) 10^3/uL Neut % (Auto) 81.8 H (42.2-75.2) % Lymph % (Auto) 8.8 L (20.5-50.1) % [place] % (Auto) 8.8 H (2-8) % Eos % (Auto) 0.5 L (1.0-3.0) % Baso % (Auto) 0.1 (0.0-1.0) % VBG pH (7.31-7.41) VBG pCO2 (41-51) mmHg VBG pO2 (35-42) mmHg VBG HCO3 (19-25) mmol/l VBG O2 Saturation (60-80) % VBG Base Excess ((-2)-(+3)) mmol/l O2 Delivery Device Sodium 140 D (136-145) mmol/L Potassium 4.6 (3.5-5.1) mmol/L Chloride 103 (98-107) mmol/L Carbon Dioxide 30 (21-32) mmol/L Anion Gap 11.6 (7-13) mEq/L BUN 27 H (7-18) mg/dL Creatinine 1.22 H (0.55-1.02) mg/dL Est Cr Clr Drug Dosing TNP Estimated GFR (MDRD) 44 BUN/Creatinine Ratio 22.1 (No establ ref range) Glucose 191 H (70-99) mg/dL POC Glucose (70-99) mg/dL Lactic Acid 3.5 H* (0.4-2.0) mmol/L Calcium 9.1 (8.5-10.1) mg/dL Iron (50-175) ug/dL TIBC (250-450) ug/dL % Saturation (20.0-50.0) % Ferritin (8-252) mg/mL Total Bilirubin 0.6 (0.2-1.0) mg/dL AST 28 (15-37) U/L ALT 51 (14-59) U/L Alkaline Phosphatase 123 H (46-116) U/L Troponin I High Sens 28 (<=51) pg/mL B-Natriuretic Peptide 249 H (0-100) pg/ml Total Protein 7.0 (6.4-8.2) g/dL Albumin 2.7 L (3.4-5.0) g/dL Globulin 4.3 Albumin/Globulin Ratio 0.63 Procalcitonin ng/mL SARS-CoV-2 RNA (ANIBAL) (NEGATIVE) Blood Type Gel Antibody Screen 03/13/21 03/13/21 03/13/21 Range/Units 13:04 13:04 13:41 WBC (5.0-10.0) 10^3/uL RBC (4.2-5.4) 10^6/uL Hgb (12.0-16.0) g/dL Hct (37.0-47.0) % MCV (80-100) fL MCH (27.0-34.0) pg MCHC (33.0-35.0) g/dL Plt Count (150-450) 10^3/uL Neut % (Auto) (42.2-75.2) % Lymph % (Auto) (20.5-50.1) % [place] % (Auto) (2-8) % Eos % (Auto) (1.0-3.0) % Baso % (Auto) (0.0-1.0) % VBG pH (7.31-7.41) VBG pCO2 (41-51) mmHg VBG pO2 (35-42) mmHg VBG HCO3 (19-25) mmol/l VBG O2 Saturation (60-80) % VBG Base Excess ((-2)-(+3)) mmol/l O2 Delivery Device Sodium (136-145) mmol/L Potassium (3.5-5.1) mmol/L Chloride (98-107) mmol/L Carbon Dioxide (21-32) mmol/L Anion Gap (7-13) mEq/L BUN (7-18) mg/dL Creatinine (0.55-1.02) mg/dL Est Cr Clr Drug Dosing Estimated GFR (MDRD) BUN/Creatinine Ratio (No establ ref range) Glucose (70-99) mg/dL POC Glucose (70-99) mg/dL Lactic Acid (0.4-2.0) mmol/L Calcium (8.5-10.1) mg/dL Iron (50-175) ug/dL TIBC (250-450) ug/dL % Saturation (20.0-50.0) % Ferritin (8-252) mg/mL Total Bilirubin (0.2-1.0) mg/dL AST (15-37) U/L ALT (14-59) U/L Alkaline Phosphatase (46-116) U/L Troponin I High Sens (<=51) pg/mL B-Natriuretic Peptide (0-100) pg/ml Total Protein (6.4-8.2) g/dL Albumin (3.4-5.0) g/dL Globulin Albumin/Globulin Ratio Procalcitonin 0.43 H ng/mL SARS-CoV-2 RNA (ANIBAL) Negative (NEGATIVE) Blood Type A POSITIVE Gel Antibody Screen Negative 03/13/21 03/13/21 03/13/21 Range/Units 13:55 16:55 16:55 WBC (5.0-10.0) 10^3/uL RBC (4.2-5.4) 10^6/uL Hgb (12.0-16.0) g/dL Hct (37.0-47.0) % MCV (80-100) fL MCH (27.0-34.0) pg MCHC (33.0-35.0) g/dL Plt Count (150-450) 10^3/uL Neut % (Auto) (42.2-75.2) % Lymph % (Auto) (20.5-50.1) % [place] % (Auto) (2-8) % Eos % (Auto) (1.0-3.0) % Baso % (Auto) (0.0-1.0) % VBG pH 7.41 (7.31-7.41) VBG pCO2 47 (41-51) mmHg VBG pO2 41 (35-42) mmHg VBG HCO3 29 H (19-25) mmol/l VBG O2 Saturation 65.4 (60-80) % VBG Base Excess 4.5 H ((-2)-(+3)) mmol/l O2 Delivery Device Nasal cannula Sodium (136-145) mmol/L Potassium (3.5-5.1) mmol/L Chloride (98-107) mmol/L Carbon Dioxide (21-32) mmol/L Anion Gap (7-13) mEq/L BUN (7-18) mg/dL Creatinine (0.55-1.02) mg/dL Est Cr Clr Drug Dosing Estimated GFR (MDRD) BUN/Creatinine Ratio (No establ ref range) Glucose (70-99) mg/dL POC Glucose (70-99) mg/dL Lactic Acid (0.4-2.0) mmol/L Calcium (8.5-10.1) mg/dL Iron 18 L (50-175) ug/dL TIBC 392 (250-450) ug/dL % Saturation 4.6 L (20.0-50.0) % Ferritin 20 (8-252) mg/mL Total Bilirubin (0.2-1.0) mg/dL AST (15-37) U/L ALT (14-59) U/L Alkaline Phosphatase (46-116) U/L Troponin I High Sens 27 (<=51) pg/mL B-Natriuretic Peptide (0-100) pg/ml Total Protein (6.4-8.2) g/dL Albumin (3.4-5.0) g/dL Globulin Albumin/Globulin Ratio Procalcitonin ng/mL SARS-CoV-2 RNA (ANIBAL) (NEGATIVE) Blood Type Gel Antibody Screen 03/13/21 03/13/21 03/13/21 Range/Units 16:55 16:59 21:32 WBC (5.0-10.0) 10^3/uL RBC (4.2-5.4) 10^6/uL Hgb (12.0-16.0) g/dL Hct (37.0-47.0) % MCV (80-100) fL MCH (27.0-34.0) pg MCHC (33.0-35.0) g/dL Plt Count (150-450) 10^3/uL Neut % (Auto) (42.2-75.2) % Lymph % (Auto) (20.5-50.1) % [place] % (Auto) (2-8) % Eos % (Auto) (1.0-3.0) % Baso % (Auto) (0.0-1.0) % VBG pH (7.31-7.41) VBG pCO2 (41-51) mmHg VBG pO2 (35-42) mmHg VBG HCO3 (19-25) mmol/l VBG O2 Saturation (60-80) % VBG Base Excess ((-2)-(+3)) mmol/l O2 Delivery Device Sodium (136-145) mmol/L Potassium (3.5-5.1) mmol/L Chloride (98-107) mmol/L Carbon Dioxide (21-32) mmol/L Anion Gap (7-13) mEq/L BUN (7-18) mg/dL Creatinine (0.55-1.02) mg/dL Est Cr Clr Drug Dosing Estimated GFR (MDRD) BUN/Creatinine Ratio (No establ ref range) Glucose (70-99) mg/dL POC Glucose 176 H 266 H (70-99) mg/dL Lactic Acid 2.5 H* (0.4-2.0) mmol/L Calcium (8.5-10.1) mg/dL Iron (50-175) ug/dL TIBC (250-450) ug/dL % Saturation (20.0-50.0) % Ferritin (8-252) mg/mL Total Bilirubin (0.2-1.0) mg/dL AST (15-37) U/L ALT (14-59) U/L Alkaline Phosphatase (46-116) U/L Troponin I High Sens (<=51) pg/mL B-Natriuretic Peptide (0-100) pg/ml Total Protein (6.4-8.2) g/dL Albumin (3.4-5.0) g/dL Globulin Albumin/Globulin Ratio Procalcitonin ng/mL SARS-CoV-2 RNA (ANIBAL) (NEGATIVE) Blood Type Gel Antibody Screen 03/13/21 03/14/21 03/14/21 Range/Units 22:10 06:28 06:28 WBC 6.9 (5.0-10.0) 10^3/uL RBC 2.70 L (4.2-5.4) 10^6/uL Hgb 7.7 L (12.0-16.0) g/dL Hct 26.4 L (37.0-47.0) % MCV 97.8 (80-100) fL MCH 28.5 (27.0-34.0) pg MCHC 29.2 L (33.0-35.0) g/dL Plt Count 192 (150-450) 10^3/uL Neut % (Auto) 90.6 H (42.2-75.2) % Lymph % (Auto) 6.1 L (20.5-50.1) % [place] % (Auto) 3.3 (2-8) % Eos % (Auto) 0.0 L (1.0-3.0) % Baso % (Auto) 0.0 (0.0-1.0) % VBG pH (7.31-7.41) VBG pCO2 (41-51) mmHg VBG pO2 (35-42) mmHg VBG HCO3 (19-25) mmol/l VBG O2 Saturation (60-80) % VBG Base Excess ((-2)-(+3)) mmol/l O2 Delivery Device Sodium (136-145) mmol/L Potassium (3.5-5.1) mmol/L Chloride (98-107) mmol/L Carbon Dioxide (21-32) mmol/L Anion Gap (7-13) mEq/L BUN (7-18) mg/dL Creatinine (0.55-1.02) mg/dL Est Cr Clr Drug Dosing Estimated GFR (MDRD) BUN/Creatinine Ratio (No establ ref range) Glucose (70-99) mg/dL POC Glucose (70-99) mg/dL Lactic Acid (0.4-2.0) mmol/L Calcium (8.5-10.1) mg/dL Iron (50-175) ug/dL TIBC (250-450) ug/dL % Saturation (20.0-50.0) % Ferritin (8-252) mg/mL Total Bilirubin (0.2-1.0) mg/dL AST (15-37) U/L ALT (14-59) U/L Alkaline Phosphatase (46-116) U/L Troponin I High Sens 23 23 (<=51) pg/mL B-Natriuretic Peptide (0-100) pg/ml Total Protein (6.4-8.2) g/dL Albumin (3.4-5.0) g/dL Globulin Albumin/Globulin Ratio Procalcitonin ng/mL SARS-CoV-2 RNA (ANIBAL) (NEGATIVE) Blood Type Gel Antibody Screen Med Orders - Current: Current Medications Acetaminophen (Acetaminophen 325 Mg Tab) 650 mg PO Q6H PRN PRN Reason: Pain (mild 1-3) Last Admin: 03/14/21 03:47 Dose: 650 mg Documented by: Albuterol/Ipratropium (Albuterol/Ipratropium 3.0-0.5 Mg/3 Ml Neb Soln) 3 ml NEB Q4HRRT [facility] Last Admin: 03/14/21 07:47 Dose: 3 ml Documented by: Ascorbic Acid (Ascorbic Acid 500 Mg Tab) 500 mg PO DAILY [facility] Dextrose/Water (50% Dextrose In Water 50 Ml Syringe) 50 ml IVPUSH Q15M PRN PRN Reason: Hypoglycemia Famotidine (Famotidine 20 Mg Tab) 20 mg PO BID [facility] Last Admin: 03/13/21 21:06 Dose: 20 mg Documented by: Furosemide (Furosemide 20 Mg/2 Ml Vial) 20 mg IVPUSH BIDDIURETIC [facility] Last Admin: 03/13/21 17:26 Dose: 20 mg Documented by: Glucagon (Glucagon,Human Recombinant 1 Mg Vial) 1 mg IM Q15M PRN PRN Reason: Hypoglycemia Doxycycline Hyclate 100 mg/ (Sodium Chloride) 100 mls @ 100 mls/hr IV Q12HR [facility] Last Infusion: 03/13/21 22:28 Dose: Infused Documented by: Iron Sucrose 100 mg/ Sodium (Chloride) 105 mls @ 400 mls/hr IV DAILY [facility] Stop: 03/16/21 23:59 Last Admin: 03/13/21 19:09 Dose: Not Given Documented by: Insulin Human Lispro (Insulin Lispro 100 Units/Ml 3 Ml Vial) 0 unit SUBCUT WITHMEALSANDBED [facility]; Protocol Last Admin: 03/13/21 21:48 Dose: 3 unit Documented by: Isosorbide Mononitrate (Isosorbide Mononitrate 60 Mg Tab.Er) 60 mg PO ACBREAKFAST [facility] Last Admin: 03/14/21 05:58 Dose: 60 mg Documented by: Methyl Salicylate (Menthol/Methyl Salicylate 85 Gm Tube) 0 gm TOP Q6H PRN PRN Reason: Other Last Admin: 03/13/21 21:40 Dose: 1 applic Documented by: Methylprednisolone Sodium Succinate (Methylprednisolone Sodium Succinate 40 Mg/1 Ml Sdv) 80 mg IVPUSH Q8H [facility] Last Admin: 03/14/21 05:50 Dose: 80 mg Documented by: Metoprolol Tartrate (Metoprolol Tartrate 25 Mg Tab) 25 mg PO Q12HR [facility] Last Admin: 03/13/21 17:27 Dose: 25 mg Documented by: Ondansetron HCl (Ondansetron 4 Mg/2 Ml Sdv) 4 mg IVPUSH Q4H PRN PRN Reason: Nausea/Vomiting Sodium Chloride (Sodium Chloride 0.9% 10 Ml Syringe) 10 ml FLUSH ASDIRECTED PRN PRN Reason: Keep Vein Open Last Admin: 03/14/21 05:50 Dose: 10 ml Documented by: Sodium Chloride (Sodium Chloride 0.9% 10 Ml Syringe) 10 ml FLUSH ASDIRECTED PRN PRN Reason: Keep Vein Open Last Admin: 03/13/21 20:11 Dose: 10 ml Documented by: Discontinued Medications Albuterol (Albuterol 0.083% 2.5 Mg/3 Ml Neb Soln) 2.5 mg NEB ONETIME ONE Stop: 03/13/21 13:03 Last Admin: 03/13/21 13:28 Dose: 2.5 mg Documented by: Furosemide (Furosemide 40 Mg/4 Ml Vial) 40 mg IVPUSH ONETIME ONE Stop: 03/13/21 13:03 Last Admin: 03/13/21 13:18 Dose: 40 mg Documented by: Levofloxacin/Dextrose 750 mg/ (Premix) 150 mls @ 100 mls/hr IV ONETIME ONE Stop: 03/13/21 15:00 Last Admin: 03/13/21 13:49 Dose: 100 mls/hr Documented by: Lactated Ringer's (Ringers, Lactated) 1,000 mls @ 1,000 mls/hr IV .BOLUS ONE Stop: 03/13/21 14:34 Last Admin: 03/13/21 13:49 Dose: 1,000 mls/hr Documented by: Methylprednisolone Sodium Succinate (Methylprednisolone Sodium Succinate 125 Mg/2 Ml Sdv) 125 mg IVPUSH ONETIME ONE Stop: 03/13/21 13:32 Last Admin: 03/13/21 13:49 Dose: 125 mg Documented by: - Exam Urinary Catheter Total Time: 0Days 0Hours General: Alert, Oriented HEENT: Pupils Equal, Pupils Reactive, EOMI, Mucous Membr. Moist/[place] Neck: Supple Lungs: Decreased Breath Sounds, Wheezing Cardiovascular: Regular Rate, Regular Rhythm GI/Abdominal Exam: Normal Bowel Sounds, Soft, Non-Tender, No Organomegaly, No Distention, No Abnormal Bruit, No Mass, Pelvis Stable Back Exam: Normal Inspection, Full Range of Motion Extremities: Joint Swelling Peripheral Pulses: 2+: Carotid (L), Carotid (R), Brachial (L), Brachial (R), Radial (L), Radial (R), Femoral (L), Femoral (R), Popliteal (L), Popliteal (R), Posterior Tibial (L), Posterior Tibial (R), Dorsalis Pedis (L), Dorsalis Pedis (R) Skin: Warm, Dry, Intact Wound/Incisions: Healing Well Neurological: No New Focal Deficit Psy/Mental Status: Alert, Normal Affect, Normal Mood - Patient Data Lab Results Last 24 hrs: Laboratory Results - last 24 hr 03/13/21 03/13/21 03/13/21 Range/Units 13:04 13:04 13:04 WBC 10.7 H (5.0-10.0) 10^3/uL RBC 2.63 L (4.2-5.4) 10^6/uL Hgb 7.7 L (12.0-16.0) g/dL Hct 26.1 L (37.0-47.0) % MCV 99.2 (80-100) fL MCH 29.3 (27.0-34.0) pg MCHC 29.5 L (33.0-35.0) g/dL Plt Count 201 (150-450) 10^3/uL Neut % (Auto) 81.8 H (42.2-75.2) % Lymph % (Auto) 8.8 L (20.5-50.1) % [place] % (Auto) 8.8 H (2-8) % Eos % (Auto) 0.5 L (1.0-3.0) % Baso % (Auto) 0.1 (0.0-1.0) % VBG pH (7.31-7.41) VBG pCO2 (41-51) mmHg VBG pO2 (35-42) mmHg VBG HCO3 (19-25) mmol/l VBG O2 Saturation (60-80) % VBG Base Excess ((-2)-(+3)) mmol/l O2 Delivery Device Sodium 140 D (136-145) mmol/L Potassium 4.6 (3.5-5.1) mmol/L Chloride 103 (98-107) mmol/L Carbon Dioxide 30 (21-32) mmol/L Anion Gap 11.6 (7-13) mEq/L BUN 27 H (7-18) mg/dL Creatinine 1.22 H (0.55-1.02) mg/dL Est Cr Clr Drug Dosing TNP Estimated GFR (MDRD) 44 BUN/Creatinine Ratio 22.1 (No establ ref range) Glucose 191 H (70-99) mg/dL POC Glucose (70-99) mg/dL Lactic Acid 3.5 H* (0.4-2.0) mmol/L Calcium 9.1 (8.5-10.1) mg/dL Iron (50-175) ug/dL TIBC (250-450) ug/dL % Saturation (20.0-50.0) % Ferritin (8-252) mg/mL Total Bilirubin 0.6 (0.2-1.0) mg/dL AST 28 (15-37) U/L ALT 51 (14-59) U/L Alkaline Phosphatase 123 H (46-116) U/L Troponin I High Sens 28 (<=51) pg/mL B-Natriuretic Peptide 249 H (0-100) pg/ml Total Protein 7.0 (6.4-8.2) g/dL Albumin 2.7 L (3.4-5.0) g/dL Globulin 4.3 Albumin/Globulin Ratio 0.63 Procalcitonin ng/mL SARS-CoV-2 RNA (ANIBAL) (NEGATIVE) Blood Type Gel Antibody Screen 03/13/21 03/13/21 03/13/21 Range/Units 13:04 13:04 13:41 WBC (5.0-10.0) 10^3/uL RBC (4.2-5.4) 10^6/uL Hgb (12.0-16.0) g/dL Hct (37.0-47.0) % MCV (80-100) fL MCH (27.0-34.0) pg MCHC (33.0-35.0) g/dL Plt Count (150-450) 10^3/uL Neut % (Auto) (42.2-75.2) % Lymph % (Auto) (20.5-50.1) % [place] % (Auto) (2-8) % Eos % (Auto) (1.0-3.0) % Baso % (Auto) (0.0-1.0) % VBG pH (7.31-7.41) VBG pCO2 (41-51) mmHg VBG pO2 (35-42) mmHg VBG HCO3 (19-25) mmol/l VBG O2 Saturation (60-80) % VBG Base Excess ((-2)-(+3)) mmol/l O2 Delivery Device Sodium (136-145) mmol/L Potassium (3.5-5.1) mmol/L Chloride (98-107) mmol/L Carbon Dioxide (21-32) mmol/L Anion Gap (7-13) mEq/L BUN (7-18) mg/dL Creatinine (0.55-1.02) mg/dL Est Cr Clr Drug Dosing Estimated GFR (MDRD) BUN/Creatinine Ratio (No establ ref range) Glucose (70-99) mg/dL POC Glucose (70-99) mg/dL Lactic Acid (0.4-2.0) mmol/L Calcium (8.5-10.1) mg/dL Iron (50-175) ug/dL TIBC (250-450) ug/dL % Saturation (20.0-50.0) % Ferritin (8-252) mg/mL Total Bilirubin (0.2-1.0) mg/dL AST (15-37) U/L ALT (14-59) U/L Alkaline Phosphatase (46-116) U/L Troponin I High Sens (<=51) pg/mL B-Natriuretic Peptide (0-100) pg/ml Total Protein (6.4-8.2) g/dL Albumin (3.4-5.0) g/dL Globulin Albumin/Globulin Ratio Procalcitonin 0.43 H ng/mL SARS-CoV-2 RNA (ANIBAL) Negative (NEGATIVE) Blood Type A POSITIVE Gel Antibody Screen Negative 03/13/21 03/13/21 03/13/21 Range/Units 13:55 16:55 16:55 WBC (5.0-10.0) 10^3/uL RBC (4.2-5.4) 10^6/uL Hgb (12.0-16.0) g/dL Hct (37.0-47.0) % MCV (80-100) fL MCH (27.0-34.0) pg MCHC (33.0-35.0) g/dL Plt Count (150-450) 10^3/uL Neut % (Auto) (42.2-75.2) % Lymph % (Auto) (20.5-50.1) % [place] % (Auto) (2-8) % Eos % (Auto) (1.0-3.0) % Baso % (Auto) (0.0-1.0) % VBG pH 7.41 (7.31-7.41) VBG pCO2 47 (41-51) mmHg VBG pO2 41 (35-42) mmHg VBG HCO3 29 H (19-25) mmol/l VBG O2 Saturation 65.4 (60-80) % VBG Base Excess 4.5 H ((-2)-(+3)) mmol/l O2 Delivery Device Nasal cannula Sodium (136-145) mmol/L Potassium (3.5-5.1) mmol/L Chloride (98-107) mmol/L Carbon Dioxide (21-32) mmol/L Anion Gap (7-13) mEq/L BUN (7-18) mg/dL Creatinine (0.55-1.02) mg/dL Est Cr Clr Drug Dosing Estimated GFR (MDRD) BUN/Creatinine Ratio (No establ ref range) Glucose (70-99) mg/dL POC Glucose (70-99) mg/dL Lactic Acid (0.4-2.0) mmol/L Calcium (8.5-10.1) mg/dL Iron 18 L (50-175) ug/dL TIBC 392 (250-450) ug/dL % Saturation 4.6 L (20.0-50.0) % Ferritin 20 (8-252) mg/mL Total Bilirubin (0.2-1.0) mg/dL AST (15-37) U/L ALT (14-59) U/L Alkaline Phosphatase (46-116) U/L Troponin I High Sens 27 (<=51) pg/mL B-Natriuretic Peptide (0-100) pg/ml Total Protein (6.4-8.2) g/dL Albumin (3.4-5.0) g/dL Globulin Albumin/Globulin Ratio Procalcitonin ng/mL SARS-CoV-2 RNA (ANIBAL) (NEGATIVE) Blood Type Gel Antibody Screen 03/13/21 03/13/21 03/13/21 Range/Units 16:55 16:59 21:32 WBC (5.0-10.0) 10^3/uL RBC (4.2-5.4) 10^6/uL Hgb (12.0-16.0) g/dL Hct (37.0-47.0) % MCV (80-100) fL MCH (27.0-34.0) pg MCHC (33.0-35.0) g/dL Plt Count (150-450) 10^3/uL Neut % (Auto) (42.2-75.2) % Lymph % (Auto) (20.5-50.1) % [place] % (Auto) (2-8) % Eos % (Auto) (1.0-3.0) % Baso % (Auto) (0.0-1.0) % VBG pH (7.31-7.41) VBG pCO2 (41-51) mmHg VBG pO2 (35-42) mmHg VBG HCO3 (19-25) mmol/l VBG O2 Saturation (60-80) % VBG Base Excess ((-2)-(+3)) mmol/l O2 Delivery Device Sodium (136-145) mmol/L Potassium (3.5-5.1) mmol/L Chloride (98-107) mmol/L Carbon Dioxide (21-32) mmol/L Anion Gap (7-13) mEq/L BUN (7-18) mg/dL Creatinine (0.55-1.02) mg/dL Est Cr Clr Drug Dosing Estimated GFR (MDRD) BUN/Creatinine Ratio (No establ ref range) Glucose (70-99) mg/dL POC Glucose 176 H 266 H (70-99) mg/dL Lactic Acid 2.5 H* (0.4-2.0) mmol/L Calcium (8.5-10.1) mg/dL Iron (50-175) ug/dL TIBC (250-450) ug/dL % Saturation (20.0-50.0) % Ferritin (8-252) mg/mL Total Bilirubin (0.2-1.0) mg/dL AST (15-37) U/L ALT (14-59) U/L Alkaline Phosphatase (46-116) U/L Troponin I High Sens (<=51) pg/mL B-Natriuretic Peptide (0-100) pg/ml Total Protein (6.4-8.2) g/dL Albumin (3.4-5.0) g/dL Globulin Albumin/Globulin Ratio Procalcitonin ng/mL SARS-CoV-2 RNA (ANIBAL) (NEGATIVE) Blood Type Gel Antibody Screen 03/13/21 03/14/21 03/14/21 Range/Units 22:10 06:28 06:28 WBC 6.9 (5.0-10.0) 10^3/uL RBC 2.70 L (4.2-5.4) 10^6/uL Hgb 7.7 L (12.0-16.0) g/dL Hct 26.4 L (37.0-47.0) % MCV 97.8 (80-100) fL MCH 28.5 (27.0-34.0) pg MCHC 29.2 L (33.0-35.0) g/dL Plt Count 192 (150-450) 10^3/uL Neut % (Auto) 90.6 H (42.2-75.2) % Lymph % (Auto) 6.1 L (20.5-50.1) % [place] % (Auto) 3.3 (2-8) % Eos % (Auto) 0.0 L (1.0-3.0) % Baso % (Auto) 0.0 (0.0-1.0) % VBG pH (7.31-7.41) VBG pCO2 (41-51) mmHg VBG pO2 (35-42) mmHg VBG HCO3 (19-25) mmol/l VBG O2 Saturation (60-80) % VBG Base Excess ((-2)-(+3)) mmol/l O2 Delivery Device Sodium (136-145) mmol/L Potassium (3.5-5.1) mmol/L Chloride (98-107) mmol/L Carbon Dioxide (21-32) mmol/L Anion Gap (7-13) mEq/L BUN (7-18) mg/dL Creatinine (0.55-1.02) mg/dL Est Cr Clr Drug Dosing Estimated GFR (MDRD) BUN/Creatinine Ratio (No establ ref range) Glucose (70-99) mg/dL POC Glucose (70-99) mg/dL Lactic Acid (0.4-2.0) mmol/L Calcium (8.5-10.1) mg/dL Iron (50-175) ug/dL TIBC (250-450) ug/dL % Saturation (20.0-50.0) % Ferritin (8-252) mg/mL Total Bilirubin (0.2-1.0) mg/dL AST (15-37) U/L ALT (14-59) U/L Alkaline Phosphatase (46-116) U/L Troponin I High Sens 23 23 (<=51) pg/mL B-Natriuretic Peptide (0-100) pg/ml Total Protein (6.4-8.2) g/dL Albumin (3.4-5.0) g/dL Globulin Albumin/Globulin Ratio Procalcitonin ng/mL SARS-CoV-2 RNA (ANIBAL) (NEGATIVE) Blood Type Gel Antibody Screen Result Diagrams: 03/14/21 06:28 03/13/21 13:04 Sepsis Event Note - Evaluation Sepsis Screening Result: Severe Sepsis Risk - Focused Exam Vital Signs: Vital Signs Temp Pulse Resp BP Pulse Ox Pulse Ox 03/14/21 07:45 67 97 03/14/21 04:00 96.8 F L 113 H 20 135/77 97 03/14/21 03:11 82 96 03/14/21 00:00 97.6 F 146 H 22 H 108/67 96 03/13/21 22:34 88 96 03/13/21 20:54 97.6 F 97 22 H 116/62 96 - Problem List Review Problem List Initiated/Reviewed/Updated: Yes - My Orders Last 24 Hours: My Active Orders 03/13/21 Lunch Consistent Carbohydrate Diet [DIET] 03/13/21 16:03 Blood Glucose Check, Bedside [RC] WITHMEALSANDBED Height and Weight [RC] 06 Oxygen Therapy [RC] .PRN Up With Assistance [RC] Vital Signs [RC] 00,04,08,12,16,20 Consult to Case Management/Residential Building Inspector [CONS] Routine Ondansetron [Zofran] 4 mg IVPUSH Q4H PRN Sodium Chloride 0.9% [Saline Flush] 10 ml FLUSH ASDIRECTED PRN Peripheral IV Insertion Adult [OM.PC] Routine Saline Lock Insert [OM.PC] Routine Resuscitation Status Routine 03/13/21 16:04 Cardiac Monitoring [RC] 09,21 Intake and Output [RC] 06,14,22 Sequential Compression Device [OM.PC] Per Unit Routine 03/13/21 16:05 Antiembolic Devices [RC] Peripheral IV Care [RC] 08,20 03/13/21 16:06 OCCULT BLOOD DIAGNOSTIC [OP] Routine 03/13/21 16:07 RT Aerosol Therapy [RC] .PRN Dextrose 50% in Water 50 ml IVPUSH Q15M PRN Glucagon,Human Recombinant [GlucaGen] 1 mg IM Q15M PRN 03/13/21 16:08 Consult to Hospice [CONS] Routine 03/13/21 16:15 Famotidine [Pepcid] 20 mg PO BID Furosemide [Lasix] 20 mg IVPUSH BIDDIURETIC 03/13/21 16:30 Metoprolol Tartrate [Lopressor] 25 mg PO Q12HR 03/13/21 17:00 Isosorbide Mononitrate [Imdur] 60 mg PO ACBREAKFAST 03/13/21 18:00 Insulin Lispro [HumaLOG] See Protocol SUBCUT WITHMEALSANDBED 03/13/21 18:45 Iron Sucrose Complex [Venofer] 100 mg Sodium Chloride 0.9% [Normal Saline] 100 ml IV DAILY 03/13/21 19:00 Albuterol/Ipratropium [DuoNeb 3.0-0.5 MG/3 ML] 3 ml NEB Q4HRRT 03/13/21 20:36 Menthol/Methyl Salicylate [Icy Hot Cream] 0 gm TOP Q6H PRN 03/13/21 20:37 Acetaminophen [TylenoL] 650 mg PO Q6H PRN 03/13/21 21:00 Doxycycline [Vibramycin] 100 mg Sodium Chloride 0.9% [Normal Saline] 100 ml IV Q12HR methylPREDNISolone Sod Succ [Solu-MEDROL] 80 mg IVPUSH Q8H 03/14/21 06:00 EKG 12 Lead [EKG Documentation Completion] [RC] 07 03/14/21 09:00 Ascorbic Acid [Vitamin C] 500 mg PO DAILY 03/15/21 05:00 BASIC METABOLIC PANEL,BMP [CHEM] Routine CBC WITH AUTO DIFF [HEME] Routine - Plan Plan:: Surgical History: Cholecystectomy, hysterectomy, tonsillectomy, cerebral aneurysm coiling x4 Family History: Cancer, stroke, diabetes, coronary artery disease, hypertension, hyperlipidemia Social History: Tobacco: Former smoker Alcohol: Currently none. Has remote history of alcohol use Caffeine: Denies Drugs: Never Allergies: Statins/Lipitor, Keflex, codeine, Prevacid, Levaquin, Tylenol, propoxyphene, Ultram, Toradol, sulfa, lactose intolerant Code Status: DNR, DNI Assessment / Plan: Dyspnea secondary to COPD exacerbation versus fluid overload given her history of grade 1 diastolic dysfunction COPD, O2 dependent 2 L. Solu-Medrol 80 mg IV every 8 hours plus doxycycline 100 g IV every 12 hours plus DuoNeb every 4 hours while awake Grade 1 diastolic dysfunction with current pulmonary vascular congestion. Strict I's/O. Daily weight. Monitor patient on telemetry and checks her cardiac enzymes. Lasix 20 mg IV twice daily Chest pain, rule out ACS. Will monitor patient on telemetry and check serial enzymes. Will monitor the patient's symptoms at this time. No antiplatelet agents due to her anemia. Patient statin allergic. Metoprolol 25 mg p.o. twice daily plus Imdur 30 mg p.o. daily History of cervical cancer, status post hysterectomy. The patient indicates that she is in remission and no longer requires to be monitored for this medical condition by Chronic kidney disease, baseline creatinine approximately 1.2. Will monitor creatinine intermittently Atrial fibrillation. Telemetry monitoring. Metoprolol 25 mg p.o. twice daily Small cell lung cancer, with metastasis including the brain, status post chemotherapy, status post radiation therapy. The patient is terminal and she indicates that her tutoring manager/oncologist has indicated that no further treatment options are available. Hospice consult History of CVA Degenerative disc disease Fibromyalgia Osteoarthritis Osteopenia Anxiety Hypothyroidism Depression Iron deficiency anemia. Monitor hemoglobin level intermittently. Fecal occult blood pending. Vitamin C 500 mg p.o. daily plus iron sucrose 100 mg IV daily until 11:59 PM on 2020-11-16 Coronary artery disease. Metoprolol 25 mg p.o. twice daily plus Imdur 30 mg p.o. daily. Patient statin allergic Diabetes. Will check Fatimah glucose before every meal and at bedtime and provide sulci scale GERD. Pepcid 20 mg p.o. twice daily Hyperlipidemia. Patient statin allergic Hypertension. Lasix 20 mg IV twice daily plus metoprolol 25 mg p.o. twice daily plus Imdur 30 mg p.o. daily Obesity. Patient be counseled regarding lifestyle modification Obstructive sleep apnea. Patient noncompliant with CPAP/BiPAP Medical noncompliance. Patient be counseled regarding medical compliance Diverticulosis IBS History of nephrolithiasis Hepatic focal nodular hyperplasia. Outpatient follow-up with gastroente rology/hepatology upon discharge History of cerebral aneurysm, status post coiling x4 History of esophageal varices Hepatic steatosis/cirrhosis History of vitamin B12 deficiency DVT prophylaxis. Bilateral SCD Disposition: Anticipate discharge in 24 hours on 2021-03-15. I will discuss the patient's case with case management/social work in conjunction with hospice END OF DOCTOR EMAMIS HISTORY AND PHYSICAL / CONSULTATION NOTE
[2021-03-14] MEDS ORDERED: Metoprolol Tartrate 25 MG Tab PO SCH (09:00)
[2021-03-14] MEDS: Insulin Lispro 100 Units/ML 3 ML Vial SUBCUT SCH ×5 (09:32→21:00)
[2021-03-14] MEDS: Iron Sucrose Complex 100 MG in Sodium Chloride 0.9% 100 ML IV SCH (09:33)
[2021-03-14] MEDS: Doxycycline 100 MG in Sodium Chloride 0.9% 100 ML IV SCH ×2 (09:33→21:01)
[2021-03-14] MEDS: Ascorbic Acid 500 MG Tab PO SCH (09:35)
[2021-03-14] MEDS: Furosemide 20 MG/2 ML VIAL IVPUSH SCH ×2 (09:35→13:14)
[2021-03-14] MEDS ORDERED: Insulin Lispro 100 Units/ML 3 ML Vial SUBCUT ONE ×2 (12:49→14:50)
[2021-03-14] MEDS ORDERED: LIDOCAINE HCL TOP PRN (13:43)
[2021-03-14] MEDS ORDERED: Non-Formulary Medication 1 Each (Diclofenac Sodium [Voltaren 1% Gel] 100 GM Tube) TOP PRN (13:43)
[2021-03-14] MEDS ORDERED: Lidocaine/Prilocaine 2.5-2.5% Crm 5 GM Tube TOP PRN (13:43)
[2021-03-14] MEDS ORDERED: ClonazePAM 0.5 MG Tab PO PRN (13:43)
[2021-03-14] MEDS ORDERED: Meclizine 12.5 MG Tab PO PRN (14:06)
[2021-03-14] MEDS ORDERED: Nystatin Susp 100,000 Unit/ML 5 ML UD Cup PO PRN (14:06)
[2021-03-14] MEDS ORDERED: 50% Dextrose in Water 50 ML Syringe IVPUSH PRN (14:41)
[2021-03-14] MEDS ORDERED: Glucagon,Human Recombinant 1 MG Vial IM PRN (14:41)
[2021-03-14] MEDS: Famotidine 20 MG Tab PO SCH ×2 (14:50→20:48)
[2021-03-14 17:20] LABS: ANION GAP 16.4 mEq/L (7-13)
[2021-03-14] MEDS: Menthol/Methyl Salicylate 85 GM Tube TOP PRN (18:38)
[2021-03-14] MEDS ORDERED: Amiodarone 200 MG Tab PO SCH (20:45)
[2021-03-14] MEDS: Rifaximin 550 MG Tab PO SCH (20:47)
[2021-03-14] MEDS: DULoxetine 30 MG Cap PO SCH (20:48)
[2021-03-14] MEDS: Mupirocin Oint 22 GM Tube TOP SCH (20:49)
[2021-03-14] MEDS: Gabapentin 100 MG Cap PO SCH (20:49)
[2021-03-14] MEDS: Insulin Glarg,Human.Rec.Analog 100 Unit/ML SUBCUT SCH (20:59)
[2021-03-14] MEDS: Diltiazem 240 MG Cap.ER PO SCH (21:00)
[2021-03-14] MEDS ORDERED: Mirtazapine 15 MG Tab PO SCH (21:00)
[2021-03-15] MEDS: Albuterol/Ipratropium 3.0-0.5 MG/3 ML Neb Soln NEB SCH ×4 (03:09→17:22)
[2021-03-15] MEDS: Isosorbide Mononitrate 60 MG Tab.ER PO SCH (05:08)
[2021-03-15] MEDS: methylPREDNISolone Sodium Succinate 40 MG/1 ML SDV IVPUSH SCH ×2 (05:09→13:21)
[2021-03-15] MEDS ORDERED: Levothyroxine 125 MCG Tab PO SCH (06:00)
--- NOTE | 2021-03-15 07:57 | PCM.PN ---
- General Info Date of Service: 03/15/21 Subjective Update: The patient Ines that she did not sleep well overnight due to abdominal pain. Aside from this she endorses no complaints. She denies fever, rigors, nausea, vomiting, cough, wheeze, dyspnea beyond her baseline dyspnea. I explained to the patient her current medical condition and plan of care and I have answered all of her questions - Review of Systems General: Reports: No Symptoms HEENT: Reports: No Symptoms Pulmonary: Reports: No Symptoms Cardiovascular: Reports: No Symptoms Gastrointestinal: Reports: Abdominal Pain Genitourinary: Reports: No Symptoms Musculoskeletal: Reports: No Symptoms Skin: Reports: No Symptoms Neurological: Reports: No Symptoms Psychiatric: Reports: No Symptoms - Patient Data Vitals - Most Recent: Last Vital Signs Temp 98.3 F 03/15/21 04:00 Pulse 64 03/15/21 04:00 Resp 20 03/15/21 04:00 BP 137/72 03/15/21 04:00 Pulse Ox 97 03/15/21 04:00 Weight - Most Recent: 310 lb 9.6 oz I&O - Last 24 Hours: Intake & Output 03/14/21 03/15/21 03/15/21 22:59 06:59 14:59 Intake Total 220 Output Total 125 50 Balance 95 -50 Lab Results Last 24 Hours: Laboratory Results - last 24 hr 03/14/21 03/14/21 03/14/21 Range/Units 08:11 11:54 14:39 Sodium (136-145) mmol/L Potassium (3.5-5.1) mmol/L Chloride (98-107) mmol/L Carbon Dioxide (21-32) mmol/L Anion Gap (7-13) mEq/L BUN (7-18) mg/dL Creatinine (0.55-1.02) mg/dL Est Cr Clr Drug Dosing mL/min Estimated GFR (MDRD) Glucose (70-99) mg/dL POC Glucose 364 H 409 H* 375 H (70-99) mg/dL Calcium (8.5-10.1) mg/dL 03/14/21 03/14/21 03/14/21 Range/Units 16:09 17:04 17:07 Sodium 136 (136-145) mmol/L Potassium 4.4 (3.5-5.1) mmol/L Chloride 99 (98-107) mmol/L Carbon Dioxide 25 (21-32) mmol/L Anion Gap 16.4 H (7-13) mEq/L BUN 41 H (7-18) mg/dL Creatinine 1.61 H (0.55-1.02) mg/dL Est Cr Clr Drug Dosing 27.28 mL/min Estimated GFR (MDRD) 32 Glucose 294 H (70-99) mg/dL POC Glucose 357 H 274 H (70-99) mg/dL Calcium 9.1 (8.5-10.1) mg/dL 03/14/21 Range/Units 20:55 Sodium (136-145) mmol/L Potassium (3.5-5.1) mmol/L Chloride (98-107) mmol/L Carbon Dioxide (21-32) mmol/L Anion Gap (7-13) mEq/L BUN (7-18) mg/dL Creatinine (0.55-1.02) mg/dL Est Cr Clr Drug Dosing mL/min Estimated GFR (MDRD) Glucose (70-99) mg/dL POC Glucose 106 H (70-99) mg/dL Calcium (8.5-10.1) mg/dL Harsha Results Last 24 Hours: Microbiology 03/13/21 13:24 Aerobic Blood Culture - Preliminary Blood - Arm, Right NO GROWTH AFTER 1 DAY Anaerobic Blood Culture - Preliminary NO GROWTH AFTER 1 DAY 03/13/21 13:04 Aerobic Blood Culture - Preliminary Blood - Port-A-Cath NO GROWTH AFTER 1 DAY Anaerobic Blood Culture - Preliminary NO GROWTH AFTER 1 DAY Med Orders - Current: Current Medications Acetaminophen (Acetaminophen 325 Mg Tab) 650 mg PO Q6H PRN PRN Reason: Pain (mild 1-3) Last Admin: 03/14/21 09:33 Dose: 650 mg Documented by: Albuterol/Ipratropium (Albuterol/Ipratropium 3.0-0.5 Mg/3 Ml Neb Soln) 3 ml NEB Q4HRRT REUBEN Last Admin: 03/15/21 06:00 Dose: 3 ml Documented by: Ascorbic Acid (Ascorbic Acid 500 Mg Tab) 500 mg PO DAILY [facility] Last Admin: 03/14/21 09:35 Dose: 500 mg Documented by: Aspirin (Aspirin 81 Mg Tab.Ec) 81 mg PO DAILY [facility] Clonazepam (Clonazepam 0.5 Mg Tab) 0.25 mg PO Q12HR PRN PRN Reason: Anxiety Dextrose/Water (50% Dextrose In Water 50 Ml Syringe) 50 ml IVPUSH Q15M PRN PRN Reason: Hypoglycemia Diltiazem HCl (Diltiazem 240 Mg Cap.Er) 240 mg PO DAILY [facility] Last Admin: 03/14/21 21:00 Dose: 240 mg Documented by: Duloxetine HCl (Duloxetine 30 Mg Cap) 60 mg PO BID [facility] Last Admin: 03/14/21 20:48 Dose: 60 mg Documented by: Famotidine (Famotidine 20 Mg Tab) 20 mg PO BID [facility] Last Admin: 03/14/21 20:48 Dose: 20 mg Documented by: Gabapentin (Gabapentin 100 Mg Cap) 100 mg PO BID [facility] Last Admin: 03/14/21 20:49 Dose: Not Given Documented by: Glucagon (Glucagon,Human Recombinant 1 Mg Vial) 1 mg IM Q15M PRN PRN Reason: Hypoglycemia Doxycycline Hyclate 100 mg/ (Sodium Chloride) 100 mls @ 100 mls/hr IV Q12HR [facility] Last Infusion: 03/14/21 22:09 Dose: Infused Documented by: Iron Sucrose 100 mg/ Sodium (Chloride) 105 mls @ 400 mls/hr IV DAILY [facility] Stop: 03/16/21 23:59 Last Admin: 03/14/21 09:33 Dose: 400 mls/hr Documented by: Insulin Glargine (Insulin Glarg,Human.Rec.Analog 100 Unit/Ml) 45 unit SUBCUT BID [facility] Last Admin: 03/14/21 20:59 Dose: Not Given Documented by: Insulin Human Lispro (Insulin Lispro 100 Units/Ml 3 Ml Vial) 0 unit SUBCUT WITHMEALSANDBED [facility]; Protocol Last Admin: 03/14/21 21:00 Dose: Not Given Documented by: Insulin Human Lispro (Insulin Lispro 100 Units/Ml 3 Ml Vial) 35 unit SUBCUT TIDMEALS [facility] Last Admin: 03/14/21 17:42 Dose: 35 units Documented by: Isosorbide Mononitrate (Isosorbide Mononitrate 60 Mg Tab.Er) 60 mg PO ACBREAKFAST [facility] Last Admin: 03/15/21 05:08 Dose: 60 mg Documented by: Levothyroxine Sodium (Levothyroxine 125 Mcg Tab) 250 mcg PO ACBREAKFAST [facility] Last Admin: 03/15/21 05:08 Dose: 250 mcg Documented by: Lidocaine/Prilocaine (Lidocaine/Prilocaine 2.5-2.5% Crm 5 Gm Tube) 0 gm TOP DAILY PRN PRN Reason: Port Access Pain Meclizine HCl (Meclizine 12.5 Mg Tab) 25 mg PO TID PRN PRN Reason: Nausea Methyl Salicylate (Menthol/Methyl Salicylate 85 Gm Tube) 0 gm TOP Q6H PRN PRN Reason: Other Last Admin: 03/14/21 18:38 Dose: 1 applic Documented by: Methylprednisolone Sodium Succinate (Methylprednisolone Sodium Succinate 40 Mg/1 Ml Sdv) 80 mg IVPUSH Q8H [facility] Last Admin: 03/15/21 05:09 Dose: 80 mg Documented by: Mirtazapine (Mirtazapine 15 Mg Tab) 15 mg PO BEDTIME [facility] Last Admin: 03/14/21 20:48 Dose: 15 mg Documented by: Mupirocin (Mupirocin Oint 22 Gm Tube) 0 gm TOP BID [facility] Last Admin: 03/14/21 20:49 Dose: Not Given Documented by: Non-Formulary Medication (Colesevelam) 1,875 mg PO BID [facility] Non-Formulary Medication (Diclofenac Sodium [Voltaren 1% Gel]) 2 gm TOP QID PRN PRN Reason: Pain Non-Formulary Medication (Lidocaine Hcl [Aspercreme Lidocaine]) 1 applic TOP Q6H PRN PRN Reason: Pain Nystatin (Nystatin Susp 100,000 Unit/Ml 5 Ml Ud Cup) 5 ml PO TID PRN PRN Reason: thrush Last Admin: 03/14/21 21:32 Dose: 5 ml Documented by: Ondansetron HCl (Ondansetron 4 Mg/2 Ml Sdv) 4 mg IVPUSH Q4H PRN PRN Reason: Nausea/Vomiting Rifaximin (Rifaximin 550 Mg Tab) 550 mg PO BID [facility] Last Admin: 03/14/21 20:47 Dose: 550 mg Documented by: Sodium Chloride (Sodium Chloride 0.9% 10 Ml Syringe) 10 ml FLUSH ASDIRECTED PRN PRN Reason: Keep Vein Open Last Admin: 03/14/21 13:16 Dose: 10 ml Documented by: Discontinued Medications Albuterol (Albuterol 0.083% 2.5 Mg/3 Ml Neb Soln) 2.5 mg NEB ONETIME ONE Stop: 03/13/21 13:03 Last Admin: 03/13/21 13:28 Dose: 2.5 mg Documented by: Amiodarone HCl (Amiodarone 200 Mg Tab) 1,200 mg PO DAILY [facility] Furosemide (Furosemide 40 Mg/4 Ml Vial) 40 mg IVPUSH ONETIME ONE Stop: 03/13/21 13:03 Last Admin: 03/13/21 13:18 Dose: 40 mg Documented by: Furosemide (Furosemide 20 Mg/2 Ml Vial) 20 mg IVPUSH BIDDIURETIC [facility] Last Admin: 03/14/21 13:14 Dose: 20 mg Documented by: Levofloxacin/Dextrose 750 mg/ (Premix) 150 mls @ 100 mls/hr IV ONETIME ONE Stop: 03/13/21 15:00 Last Admin: 03/13/21 13:49 Dose: 100 mls/hr Documented by: Lactated Ringer's (Ringers, Lactated) 1,000 mls @ 1,000 mls/hr IV .BOLUS ONE Stop: 03/13/21 14:34 Last Admin: 03/13/21 13:49 Dose: 1,000 mls/hr Documented by: Insulin Human Lispro (Insulin Lispro 100 Units/Ml 3 Ml Vial) 18 unit SUBCUT ONETIME ONE Stop: 03/14/21 12:50 Last Admin: 03/14/21 13:18 Dose: 18 units Documented by: Insulin Human Lispro (Insulin Lispro 100 Units/Ml 3 Ml Vial) 34 unit SUBCUT ONETIME ONE Stop: 03/14/21 14:51 Last Admin: 03/14/21 15:05 Dose: 34 units Documented by: Methylprednisolone Sodium Succinate (Methylprednisolone Sodium Succinate 125 Mg/2 Ml Sdv) 125 mg IVPUSH ONETIME ONE Stop: 03/13/21 13:32 Last Admin: 03/13/21 13:49 Dose: 125 mg Documented by: Metoprolol Tartrate (Metoprolol Tartrate 25 Mg Tab) 25 mg PO Q12HR [facility] Last Admin: 03/13/21 17:27 Dose: 25 mg Documented by: Metoprolol Tartrate (Metoprolol Tartrate 25 Mg Tab) 75 mg PO Q12H [facility] Last Admin: 03/14/21 09:34 Dose: 75 mg Documented by: Sodium Chloride (Sodium Chloride 0.9% 10 Ml Syringe) 10 ml FLUSH ASDIRECTED PRN PRN Reason: Keep Vein Open Last Admin: 03/14/21 05:50 Dose: 10 ml Documented by: - Exam Urinary Catheter Total Time: 0Days 0Hours General: Alert, Oriented HEENT: Pupils Equal, Pupils Reactive, EOMI, Mucous Membr. Moist/[place] Neck: Supple Lungs: Clear to Auscultation, Normal Respiratory Effort Cardiovascular: Regular Rate, Regular Rhythm GI/Abdominal Exam: Normal Bowel Sounds, Soft, Non-Tender, No Organomegaly, No Distention, No Abnormal Bruit, No Mass, Pelvis Stable Back Exam: Normal Inspection, Full Range of Motion Extremities: Normal Inspection, Normal Range of Motion, Non-Tender, No Pedal Edema, Normal Capillary Refill Peripheral Pulses: 2+: Carotid (L), Carotid (R), Brachial (L), Brachial (R), Radial (L), Radial (R), Femoral (L), Femoral (R), Popliteal (L), Popliteal (R), Posterior Tibial (L), Posterior Tibial (R), Dorsalis Pedis (L), Dorsalis Pedis (R) Skin: Warm, Dry, Intact Wound/Incisions: Healing Well Neurological: No New Focal Deficit Psy/Mental Status: Alert, Normal Affect, Normal Mood - Patient Data Lab Results Last 24 hrs: Laboratory Results - last 24 hr 03/14/21 03/14/21 03/14/21 Range/Units 08:11 11:54 14:39 Sodium (136-145) mmol/L Potassium (3.5-5.1) mmol/L Chloride (98-107) mmol/L Carbon Dioxide (21-32) mmol/L Anion Gap (7-13) mEq/L BUN (7-18) mg/dL Creatinine (0.55-1.02) mg/dL Est Cr Clr Drug Dosing mL/min Estimated GFR (MDRD) Glucose (70-99) mg/dL POC Glucose 364 H 409 H* 375 H (70-99) mg/dL Calcium (8.5-10.1) mg/dL 03/14/21 03/14/21 03/14/21 Range/Units 16:09 17:04 17:07 Sodium 136 (136-145) mmol/L Potassium 4.4 (3.5-5.1) mmol/L Chloride 99 (98-107) mmol/L Carbon Dioxide 25 (21-32) mmol/L Anion Gap 16.4 H (7-13) mEq/L BUN 41 H (7-18) mg/dL Creatinine 1.61 H (0.55-1.02) mg/dL Est Cr Clr Drug Dosing 27.28 mL/min Estimated GFR (MDRD) 32 Glucose 294 H (70-99) mg/dL POC Glucose 357 H 274 H (70-99) mg/dL Calcium 9.1 (8.5-10.1) mg/dL 03/14/21 Range/Units 20:55 Sodium (136-145) mmol/L Potassium (3.5-5.1) mmol/L Chloride (98-107) mmol/L Carbon Dioxide (21-32) mmol/L Anion Gap (7-13) mEq/L BUN (7-18) mg/dL Creatinine (0.55-1.02) mg/dL Est Cr Clr Drug Dosing mL/min Estimated GFR (MDRD) Glucose (70-99) mg/dL POC Glucose 106 H (70-99) mg/dL Calcium (8.5-10.1) mg/dL Result Diagrams: 03/14/21 06:28 03/14/21 17:04 Harsha Results Last 24 hrs: Microbiology 03/13/21 13:24 Aerobic Blood Culture - Preliminary Blood - Arm, Right NO GROWTH AFTER 1 DAY Anaerobic Blood Culture - Preliminary NO GROWTH AFTER 1 DAY 03/13/21 13:04 Aerobic Blood Culture - Preliminary Blood - Port-A-Cath NO GROWTH AFTER 1 DAY Anaerobic Blood Culture - Preliminary NO GROWTH AFTER 1 DAY Sepsis Event Note - Evaluation Sepsis Screening Result: No Definite Risk - Focused Exam Vital Signs: Vital Signs Temp Pulse Resp BP Pulse Ox Pulse Ox 03/15/21 04:00 98.3 F 64 20 137/72 97 03/15/21 03:00 62 98 03/15/21 00:00 97.5 F 40 L 20 147/75 H 95 03/14/21 20:02 98.1 F 109 H 22 H 99/66 96 - Problem List Review Problem List Initiated/Reviewed/Updated: Yes - My Orders Last 24 Hours: My Active Orders 03/14/21 08:15 Communication Order [RC] 03/14/21 09:00 Ascorbic Acid [Vitamin C] 500 mg PO DAILY 03/14/21 13:43 ClonazePAM [KlonoPIN] 0.25 mg PO Q12HR PRN Diclofenac Sodium [Voltaren 1% Gel] 2 gm TOP QID PRN Lidocaine/Prilocaine [EMLA Crm] 0 gm TOP DAILY PRN lidocaine HCL [Aspercreme Lidocaine] 1 applic TOP Q6H PRN 03/14/21 14:06 Meclizine [Antivert] 25 mg PO TID PRN Nystatin [Mycostatin] 5 ml PO TID PRN 03/14/21 17:00 Insulin Lispro [HumaLOG] 35 unit SUBCUT TIDMEALS 03/14/21 20:45 Diltiazem [Dilacor XR] 240 mg PO DAILY 03/14/21 21:00 Colesevelam 1,875 mg PO BID DULoxetine [Cymbalta] 60 mg PO BID Gabapentin [Neurontin] 100 mg PO BID Insulin Glarg,Human.Rec.Analog [LantUS] 45 unit SUBCUT BID Mirtazapine [Remeron] 15 mg PO BEDTIME Mupirocin Oint [Bactroban Oint] 0 gm TOP BID Rifaximin [Xifaxan] 550 mg PO BID 03/15/21 05:00 BASIC METABOLIC PANEL,BMP [CHEM] Routine CBC WITH AUTO DIFF [HEME] Routine 03/15/21 06:00 Levothyroxine 250 mcg PO ACBREAKFAST 03/15/21 09:00 Aspirin [Halfprin] 81 mg PO DAILY 03/16/21 05:00 BASIC METABOLIC PANEL,BMP [CHEM] Routine CBC WITH AUTO DIFF [HEME] Routine - Plan Plan:: Surgical History: Cholecystectomy, hysterectomy, tonsillectomy, cerebral aneurysm coiling x4 Family History: Cancer, stroke, diabetes, coronary artery disease, hypertension, hyperlipidemia Social History: Tobacco: Former smoker Alcohol: Currently none. Has remote history of alcohol use Caffeine: Denies Drugs: Never Allergies: Statins/Lipitor, Keflex, codeine, Prevacid, Levaquin, Tylenol, propoxyphene, Ultram, Toradol, sulfa, lactose intolerant Code Status: DNR, DNI Assessment / Plan: Dyspnea secondary to COPD exacerbation versus fluid overload given her history of grade 1 diastolic dysfunction COPD, O2 dependent 2 L. Solu-Medrol 80 mg IV every 8 hours plus doxycycline 100 g IV every 12 hours plus DuoNeb every 4 hours while awake Grade 1 diastolic dysfunction with current pulmonary vascular congestion. Strict I's/O. Daily weight. Monitor patient on telemetry and checks her cardiac enzymes Chest pain, rule out ACS. Will monitor patient on telemetry and check serial enzymes. Will monitor the patient's symptoms at this time. Patient statin allergic. Imdur 30 mg p.o. daily plus aspirin 81 mg p.o. daily History of cervical cancer, status post hysterectomy. The patient indicates that she is in remission and no longer requires to be monitored for this medical condition by Chronic kidney disease, baseline creatinine approximately 1.2. Will monitor creatinine intermittently Atrial fibrillation. Telemetry monitoring. [place] XR 240 mg p.o. daily Small cell lung cancer, with metastasis including the brain, status post chemotherapy, status post radiation therapy. 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 Hospice consult History of CVA/patient statin allergic. Aspirin 81 mg p.o. daily Degenerative disc disease Fibromyalgia. Cymbalta 60 mg p.o. twice daily Osteoarthritis Osteopenia Anxiety Hypothyroidism. Synthroid 250 mcg p.o. daily Depression. Cymbalta 60 mg p.o. twice daily plus Remeron 15 mg p.o. nightly Iron deficiency anemia. Monitor hemoglobin level intermittently. Fecal occult blood pending. Vitamin C 500 mg p.o. daily plus iron sucrose 100 mg IV daily until 11:59 PM on 2020-11-16 Coronary artery disease. Aspirin 81 mg p.o. daily plus Imdur 30 mg p.o. daily. Patient statin allergic Diabetes. Will check Fatimah glucose before every meal and at bedtime and provide sulci scale plus insulin aspartate 35 units subcutaneously 3 times daily with meals plus insulin detemir 45 unit subcutaneous twice daily Neuropathy. Gabapentin 100 mg p.o. twice daily GERD. Pepcid 20 mg p.o. twice daily Hyperlipidemia. Patient statin allergic. WelChol 1875 mg p.o. twice daily Hypertension. Imdur 30 mg p.o. daily plus [place] XR 240 mg p.o. daily Obesity. Patient be counseled regarding lifestyle modification Obstructive sleep apnea. Patient noncompliant with CPAP/BiPAP Medical noncompliance. Patient be counseled regarding medical compliance Diverticulosis IBS. Xifaxan 550 mg p.o. twice daily History of nephrolithiasis Hepatic focal nodular hyperplasia. Outpatient follow-up with gastroenterology/hepatology upon discharge History of cerebral aneurysm, status post coiling x4 History of esophageal varices Hepatic steatosis/cirrhosis History of vitamin B12 deficiency DVT prophylaxis. Bilateral SCD Disposition: The patient is at her baseline state of health which is poor overall and appears medically stable for discharge. I will discuss the patient's case with case management/social work in conjunction with hospice END OF DOCTOR EMAMIS HISTORY AND PHYSICAL / CONSULTATION NOTE
[2021-03-15 08:56] VITALS: BP 148/72; PULSE 69
[2021-03-15] MEDS ORDERED: Aspirin 81 MG Tab.EC PO SCH (09:00)
[2021-03-15] MEDS: Insulin Lispro 100 Units/ML 3 ML Vial SUBCUT SCH ×4 (09:38→13:20)
[2021-03-15] MEDS: Insulin Glarg,Human.Rec.Analog 100 Unit/ML SUBCUT SCH (09:42)
[2021-03-15] MEDS: Rifaximin 550 MG Tab PO SCH (09:48)
[2021-03-15] MEDS: Diltiazem 240 MG Cap.ER PO SCH (09:48)
[2021-03-15] MEDS: DULoxetine 30 MG Cap PO SCH (09:48)
[2021-03-15] MEDS: Gabapentin 100 MG Cap PO SCH (09:49)
[2021-03-15] MEDS: Famotidine 20 MG Tab PO SCH (09:49)
[2021-03-15] MEDS: Ascorbic Acid 500 MG Tab PO SCH (09:49)
[2021-03-15] MEDS: Mupirocin Oint 22 GM Tube TOP SCH (09:50)
[2021-03-15] MEDS: Doxycycline 100 MG in Sodium Chloride 0.9% 100 ML IV SCH (09:54)
[2021-03-15] MEDS: Iron Sucrose Complex 100 MG in Sodium Chloride 0.9% 100 ML IV SCH (09:54)
[2021-03-15 10:39] LABS: ANION GAP 19.8 mEq/L (7-13)
--- NOTE | 2021-03-15 11:01 | PCM.DCSUM1 ---
Discharge Summary - Hospital Course Free Text/Narrative:: START OF DOCTOR GABRIEL DISCHARGE SUMMARY Date of Admission: March 13, 2021 Date of Discharge: 10:56 AM on March 15, 2021 Primary Diagnosis: Dyspnea secondary to COPD exacerbation versus fluid overload given her history of grade 1 diastolic dysfunction Secondary Diagnosis: COPD, O2 dependent at 2 L Grade 1 diastolic dysfunction Chest pain, ACS ruled out History of cervical cancer, status post hysterectomy. The patient Ines that she is in remission and no longer requires to be monitored for this medical condition by Chronic kidney disease, baseline creatinine approximately 1.2 Atrial fibrillation Small cell lung cancer, with metastasis including the brain, status post chemotherapy, status post radiation therapy. The patient is terminal and she negates that her senior safety support manager/oncologist has indicated that no further treatment options are available History of CVA Degenerative disc disease Fibromyalgia Osteoarthritis Osteopenia Anxiety Hypothyroidism Depression Iron deficiency anemia Coronary artery disease Diabetes GERD Neuropathy Hyperlipidemia Hypertension Morbid obesity Obstructive sleep apnea, patient noncompliant with CPAP/BiPAP Medical noncompliance Diverticulosis IBS History nephrolithiasis Hepatic focal nodular hyperplasia History of cerebral aneurysm, status post coiling x4 History of esophageal varices Hepatic steatosis/cirrhosis History of vitamin B12 deficiency Consultations: None Condition on Discharge: Poor to fair. Patient is at her baseline state of health Disposition: The patient will be discharged home under the care of hospice. The patient may follow-up with her primary care physician or provider as needed Discharge Medications: The patient is being discharged under the care of hospice. Continuation/discontinuation of the medications below will be at the discretion of the hospice agency: Cymbalta 60 mg p.o. twice daily Gabapentin 100 mg p.o. twice daily Insulin aspartate 35 units subcutaneously 3 times daily with meals Insulin detemir 45 units subcutaneously twice daily Incruse Ellipta 62.5 mcg 1 inhalation daily Protonix 40 mg p.o. daily Zofran 4 mg p.o. daily as needed nausea/vomiting Nitroglycerin 0.4 mg sublingually every 5 minutes as needed chest pain. Meclizine 25 mg p.o. 3 times daily as needed symptoms of vertigo Aspercreme/lidocaine: 1 application every 6 hours to affected area as needed pain Lasix 40 mg p.o. twice daily to be resumed on March 19, 2021 Voltaren 1% gel to be applied to affected area 4 times daily as needed pain WelChol 1875 mg p.o. twice daily Pulmicort 0.5 mg inhaled twice daily Proventil HFA: 90 carmen as per spray: 2 puffs every 4 hours as needed shortness of breath/wheeze Xifaxan 550 mg p.o. twice daily Diltiazem CD 240 mg p.o. daily Synthroid 250 migrans p.o. daily Remeron 15 mg p.o. nightly Doxycycline 100 mg p.o. twice daily. Quantity 8. 0 refills Prednisone 10 mg p.o.: 4 tabs daily x3 days then 3 tabs daily x3 days then 2 tabs daily x3 days then 1 tab daily x3 days. Quantity sufficient. 0 refills Imdur 60 mg p.o. daily Nystatin 100,000 units/mL: 5 mL swish and swallow 3 times daily as needed thrush Vitamin C 500 mg p.o. daily Aspirin 81 mg p.o. daily Klonopin 0.25 mg p.o. twice daily as needed anxiety Senna plus: 2 tabs p.o. twice daily END OF DOCTOR EMAMIS DISCHARGE SUMMARY - Discharge Data Discharge Date: 03/15/21 Discharge Disposition: Home, Self-Care 01 Condition: Poor - Referral to Home Health Primary Care Physician: PCP None - Patient Summary/Data Consults: Consultations 03/13/21 16:03 Consult to Case Management/Cattle Manager [CONS] Routine 03/13/21 16:08 Consult to Hospice [CONS] Routine - Patient Instructions Diet: Regular Diet as Tolerated Activity: As Tolerated - Discharge Plan Prescriptions/Med Rec: Isosorbide Mononitrate [Imdur] 60 mg PO ACBREAKFAST 30 Days #30 tab.er predniSONE [Prednisone] 10 mg PO DAILY #1 tablet Docusate Sodium/Sennosides [Senna Plus] 2 tab PO BID 30 Days #120 tablet Doxycycline [Vibra-Tabs] 100 mg PO Q12HR 4 Days #8 tab Ascorbic Acid [Vitamin C] 500 mg PO DAILY 30 Days #30 tablet Home Medications: Home Meds Diclofenac Sodium [Voltaren 1% Gel] 2 gm TOP QID PRN 09/05/13 [History] Colesevelam [Welchol] 1,875 mg PO BID 11/12/13 [History] DULoxetine [Cymbalta] 60 mg PO BID 11/12/13 [History] Insulin Aspart [NovoLOG] 35 unit SQ TIDMEALS 05/14/16 [History] Aspirin [Adult Low Dose Aspirin EC] 81 mg PO DAILY 03/08/18 [History] Insulin Detemir [Levemir Flextouch] 45 units SQ BID 03/08/18 [History] Nitroglycerin [Nitrostat] 0.4 mg PO ASDIRECTED 03/08/18 [History] Nystatin 5 ml SSWAL TID PRN 03/08/18 [History] Pantoprazole [ProTONIX] 40 mg PO ACBREAKFAST 03/08/18 [History] Albuterol [Ventolin HFA] 2 puff INH Q4HR PRN 03/26/20 [History] Lidocaine/Prilocaine [EMLA Crm] 1 applic TOP .ASNEEDED PRN 03/26/20 [History] Furosemide [Lasix] 40 mg PO BID 03/27/20 [History] Umeclidinium [place] [Incruse Ellipta*] 1 puff INH DAILY 03/27/20 [History] Budesonide [Pulmicort] 2 ml INH BID 03/14/21 [History] ClonazePAM [KlonoPIN] 0.25 mg PO BID PRN 03/14/21 [History] Diltiazem HCl [Diltiazem 24Hr Cd] 240 mg PO DAILY 03/14/21 [History] Gabapentin [Neurontin] 100 mg PO BID 03/14/21 [History] Levothyroxine [Synthroid] 250 mcg PO ACBREAKFAST 03/14/21 [History] Meclizine [Antivert] 25 mg PO TID PRN 03/14/21 [History] Mirtazapine 15 mg PO BEDTIME 03/14/21 [History] Mupirocin Oint [Bactroban Oint] 1 applic TOP BID 03/14/21 [History] Rifaximin [Xifaxan] 550 mg PO BID 03/14/21 [History] lidocaine HCL [Aspercreme Lidocaine] 1 applic TOP Q6H PRN 03/14/21 [History] ondansetron HCL [Ondansetron HCl] 4 mg PO DAILY PRN 03/14/21 [History] Ascorbic Acid [Vitamin C] 500 mg PO DAILY 30 Days #30 tablet 03/15/21 [Rx] Docusate Sodium/Sennosides [Senna Plus] 2 tab PO BID 30 Days #120 tablet 03/15/21 [Rx] Doxycycline [Vibra-Tabs] 100 mg PO Q12HR 4 Days #8 tab 03/15/21 [Rx] Isosorbide Mononitrate [Imdur] 60 mg PO ACBREAKFAST 30 Days #30 tab.er 03/15/21 [Rx] predniSONE [Prednisone] 10 mg PO DAILY #1 tablet 03/15/21 [Rx] Forms: ED Department Discharge Referrals: PCP,None [Primary Care Provider] - - Discharge Summary/Plan Comment DC Time >30 min.: Yes - General Info Date of Service: 03/15/21 - Review of Systems General: Reports: No Symptoms HEENT: Reports: No Symptoms Pulmonary: Reports: No Symptoms Cardiovascular: Reports: No Symptoms Gastrointestinal: Reports: No Symptoms Genitourinary: Reports: No Symptoms Musculoskeletal: Reports: No Symptoms Skin: Reports: No Symptoms Neurological: Reports: No Symptoms Psychiatric: Reports: No Symptoms - Patient Data Vitals - Most Recent: Last Vital Signs Temp 96.7 F L 03/15/21 08:00 Pulse 69 03/15/21 08:00 Resp 20 03/15/21 08:00 BP 148/72 H 03/15/21 08:00 Pulse Ox 100 03/15/21 08:00 Weight - Most Recent: 310 lb 9.6 oz I&O - Last 24 hours: Intake & Output 03/14/21 03/15/21 03/15/21 22:59 06:59 14:59 Intake Total 220 Output Total 125 50 Balance 95 -50 Lab Results - Last 24 hrs: Laboratory Results - last 24 hr 03/14/21 03/14/21 03/14/21 Range/Units 11:54 14:39 16:09 WBC (5.0-10.0) 10^3/uL RBC (4.2-5.4) 10^6/uL Hgb (12.0-16.0) g/dL Hct (37.0-47.0) % MCV (80-100) fL MCH (27.0-34.0) pg MCHC (33.0-35.0) g/dL Plt Count (150-450) 10^3/uL Neut % (Auto) (42.2-75.2) % Lymph % (Auto) (20.5-50.1) % [place] % (Auto) (2-8) % Eos % (Auto) (1.0-3.0) % Baso % (Auto) (0.0-1.0) % Sodium (136-145) mmol/L Potassium (3.5-5.1) mmol/L Chloride (98-107) mmol/L Carbon Dioxide (21-32) mmol/L Anion Gap (7-13) mEq/L BUN (7-18) mg/dL Creatinine (0.55-1.02) mg/dL Est Cr Clr Drug Dosing mL/min Estimated GFR (MDRD) Glucose (70-99) mg/dL POC Glucose 409 H* 375 H 357 H (70-99) mg/dL Calcium (8.5-10.1) mg/dL 03/14/21 03/14/21 03/14/21 Range/Units 17:04 17:07 20:55 WBC (5.0-10.0) 10^3/uL RBC (4.2-5.4) 10^6/uL Hgb (12.0-16.0) g/dL Hct (37.0-47.0) % MCV (80-100) fL MCH (27.0-34.0) pg MCHC (33.0-35.0) g/dL Plt Count (150-450) 10^3/uL Neut % (Auto) (42.2-75.2) % Lymph % (Auto) (20.5-50.1) % [place] % (Auto) (2-8) % Eos % (Auto) (1.0-3.0) % Baso % (Auto) (0.0-1.0) % Sodium 136 (136-145) mmol/L Potassium 4.4 (3.5-5.1) mmol/L Chloride 99 (98-107) mmol/L Carbon Dioxide 25 (21-32) mmol/L Anion Gap 16.4 H (7-13) mEq/L BUN 41 H (7-18) mg/dL Creatinine 1.61 H (0.55-1.02) mg/dL Est Cr Clr Drug Dosing 27.28 mL/min Estimated GFR (MDRD) 32 Glucose 294 H (70-99) mg/dL POC Glucose 274 H 106 H (70-99) mg/dL Calcium 9.1 (8.5-10.1) mg/dL 03/15/21 03/15/21 03/15/21 Range/Units 08:19 10:11 10:11 WBC 14.1 H (5.0-10.0) 10^3/uL RBC 2.66 L (4.2-5.4) 10^6/uL Hgb 7.7 L (12.0-16.0) g/dL Hct 26.2 L (37.0-47.0) % MCV 98.5 (80-100) fL MCH 28.9 (27.0-34.0) pg MCHC 29.4 L (33.0-35.0) g/dL Plt Count 225 (150-450) 10^3/uL Neut % (Auto) 90.2 H (42.2-75.2) % Lymph % (Auto) 4.5 L (20.5-50.1) % [place] % (Auto) 5.2 (2-8) % Eos % (Auto) 0.0 L (1.0-3.0) % Baso % (Auto) 0.1 (0.0-1.0) % Sodium 137 (136-145) mmol/L Potassium 4.8 (3.5-5.1) mmol/L Chloride 98 (98-107) mmol/L Carbon Dioxide 24 (21-32) mmol/L Anion Gap 19.8 H (7-13) mEq/L BUN 61 H (7-18) mg/dL Creatinine 2.77 H (0.55-1.02) mg/dL Est Cr Clr Drug Dosing 15.86 mL/min Estimated GFR (MDRD) 17 Glucose 313 H (70-99) mg/dL POC Glucose 241 H (70-99) mg/dL Calcium 9.6 (8.5-10.1) mg/dL [place] Results - Last 24 hrs: Microbiology 03/13/21 13:24 Aerobic Blood Culture - Preliminary Blood - Arm, Right NO GROWTH AFTER 1 DAY Anaerobic Blood Culture - Preliminary NO GROWTH AFTER 1 DAY 03/13/21 13:04 Aerobic Blood Culture - Preliminary Blood - Port-A-Cath NO GROWTH AFTER 1 DAY Anaerobic Blood Culture - Preliminary NO GROWTH AFTER 1 DAY Med Orders - Current: Current Medications Acetaminophen (Acetaminophen 325 Mg Tab) 650 mg PO Q6H PRN PRN Reason: Pain (mild 1-3) Last Admin: 03/14/21 09:33 Dose: 650 mg Documented by: Albuterol/Ipratropium (Albuterol/Ipratropium 3.0-0.5 Mg/3 Ml Neb Soln) 3 ml NEB Q4HRRT [facility] Last Admin: 03/15/21 06:00 Dose: 3 ml Documented by: Ascorbic Acid (Ascorbic Acid 500 Mg Tab) 500 mg PO DAILY [facility] Last Admin: 03/15/21 09:49 Dose: 500 mg Documented by: Aspirin (Aspirin 81 Mg Tab.Ec) 81 mg PO DAILY [facility] Last Admin: 03/15/21 09:49 Dose: 81 mg Documented by: Clonazepam (Clonazepam 0.5 Mg Tab) 0.25 mg PO Q12HR PRN PRN Reason: Anxiety Dextrose/Water (50% Dextrose In Water 50 Ml Syringe) 50 ml IVPUSH Q15M PRN PRN Reason: Hypoglycemia Diltiazem HCl (Diltiazem 240 Mg Cap.Er) 240 mg PO DAILY [facility] Last Admin: 03/15/21 09:48 Dose: 240 mg Documented by: Duloxetine HCl (Duloxetine 30 Mg Cap) 60 mg PO BID [facility] Last Admin: 03/15/21 09:48 Dose: 60 mg Documented by: Famotidine (Famotidine 20 Mg Tab) 20 mg PO BID [facility] Last Admin: 03/15/21 09:49 Dose: 20 mg Documented by: Gabapentin (Gabapentin 100 Mg Cap) 100 mg PO BID [facility] Last Admin: 03/15/21 09:49 Dose: Not Given Documented by: Glucagon (Glucagon,Human Recombinant 1 Mg Vial) 1 mg IM Q15M PRN PRN Reason: Hypoglycemia Doxycycline Hyclate 100 mg/ (Sodium Chloride) 100 mls @ 100 mls/hr IV Q12HR [facility] Last Admin: 03/15/21 09:54 Dose: 100 mls/hr Documented by: Iron Sucrose 100 mg/ Sodium (Chloride) 105 mls @ 400 mls/hr IV DAILY [facility] Stop: 03/16/21 23:59 Last Admin: 03/15/21 09:54 Dose: 400 mls/hr Documented by: Insulin Glargine (Insulin Glarg,Human.Rec.Analog 100 Unit/Ml) 45 unit SUBCUT BID [facility] Last Admin: 03/15/21 09:42 Dose: 45 units Documented by: Insulin Human Lispro (Insulin Lispro 100 Units/Ml 3 Ml Vial) 0 unit SUBCUT WITHMEALSANDBED [facility]; Protocol Last Admin: 03/15/21 09:38 Dose: 2 unit Documented by: Insulin Human Lispro (Insulin Lispro 100 Units/Ml 3 Ml Vial) 35 unit SUBCUT TIDMEALS [facility] Last Admin: 03/15/21 09:40 Dose: 35 units Documented by: Isosorbide Mononitrate (Isosorbide Mononitrate 60 Mg Tab.Er) 60 mg PO ACBREAKFAST [facility] Last Admin: 03/15/21 05:08 Dose: 60 mg Documented by: Levothyroxine Sodium (Levothyroxine 125 Mcg Tab) 250 mcg PO ACBREAKFAST [facility] Last Admin: 03/15/21 05:08 Dose: 250 mcg Documented by: Lidocaine/Prilocaine (Lidocaine/Prilocaine 2.5-2.5% Crm 5 Gm Tube) 0 gm TOP DAILY PRN PRN Reason: Port Access Pain Meclizine HCl (Meclizine 12.5 Mg Tab) 25 mg PO TID PRN PRN Reason: Nausea Methyl Salicylate (Menthol/Methyl Salicylate 85 Gm Tube) 0 gm TOP Q6H PRN PRN Reason: Other Last Admin: 03/14/21 18:38 Dose: 1 applic Documented by: Methylprednisolone Sodium Succinate (Methylprednisolone Sodium Succinate 40 Mg/1 Ml Sdv) 80 mg IVPUSH Q8H [facility] Last Admin: 03/15/21 05:09 Dose: 80 mg Documented by: Mirtazapine (Mirtazapine 15 Mg Tab) 15 mg PO BEDTIME [facility] Last Admin: 03/14/21 20:48 Dose: 15 mg Documented by: Mupirocin (Mupirocin Oint 22 Gm Tube) 0 gm TOP BID [facility] Last Admin: 03/15/21 09:50 Dose: Not Given Documented by: Nystatin (Nystatin Susp 100,000 Unit/Ml 5 Ml Ud Cup) 5 ml PO TID PRN PRN Reason: thrush Last Admin: 03/14/21 21:32 Dose: 5 ml Documented by: Ondansetron HCl (Ondansetron 4 Mg/2 Ml Sdv) 4 mg IVPUSH Q4H PRN PRN Reason: Nausea/Vomiting Rifaximin (Rifaximin 550 Mg Tab) 550 mg PO BID [facility] Last Admin: 03/15/21 09:48 Dose: 550 mg Documented by: Senna/Docusate Sodium (Docusate Sodium/Sennosides 50-8.6 Mg Tab) 2 tab PO BID [facility] Last Admin: 03/15/21 09:49 Dose: 2 tab Documented by: Sodium Chloride (Sodium Chloride 0.9% 10 Ml Syringe) 10 ml FLUSH ASDIRECTED PRN PRN Reason: Keep Vein Open Last Admin: 03/14/21 13:16 Dose: 10 ml Documented by: Discontinued Medications Albuterol (Albuterol 0.083% 2.5 Mg/3 Ml Neb Soln) 2.5 mg NEB ONETIME ONE Stop: 03/13/21 13:03 Last Admin: 03/13/21 13:28 Dose: 2.5 mg Documented by: Amiodarone HCl (Amiodarone 200 Mg Tab) 1,200 mg PO DAILY [facility] Furosemide (Furosemide 40 Mg/4 Ml Vial) 40 mg IVPUSH ONETIME ONE Stop: 03/13/21 13:03 Last Admin: 03/13/21 13:18 Dose: 40 mg Documented by: Furosemide (Furosemide 20 Mg/2 Ml Vial) 20 mg IVPUSH BIDDIURETIC [facility] Last Admin: 03/14/21 13:14 Dose: 20 mg Documented by: Levofloxacin/Dextrose 750 mg/ (Premix) 150 mls @ 100 mls/hr IV ONETIME ONE Stop: 03/13/21 15:00 Last Admin: 03/13/21 13:49 Dose: 100 mls/hr Documented by: Lactated Ringer's (Ringers, Lactated) 1,000 mls @ 1,000 mls/hr IV .BOLUS ONE Stop: 03/13/21 14:34 Last Admin: 03/13/21 13:49 Dose: 1,000 mls/hr Documented by: Insulin Human Lispro (Insulin Lispro 100 Units/Ml 3 Ml Vial) 18 unit SUBCUT ONETIME ONE Stop: 03/14/21 12:50 Last Admin: 03/14/21 13:18 Dose: 18 units Documented by: Insulin Human Lispro (Insulin Lispro 100 Units/Ml 3 Ml Vial) 34 unit SUBCUT ONETIME ONE Stop: 03/14/21 14:51 Last Admin: 03/14/21 15:05 Dose: 34 units Documented by: Methylprednisolone Sodium Succinate (Methylprednisolone Sodium Succinate 125 Mg/2 Ml Sdv) 125 mg IVPUSH ONETIME ONE Stop: 03/13/21 13:32 Last Admin: 03/13/21 13:49 Dose: 125 mg Documented by: Metoprolol Tartrate (Metoprolol Tartrate 25 Mg Tab) 25 mg PO Q12HR [facility] Last Admin: 03/13/21 17:27 Dose: 25 mg Documented by: Metoprolol Tartrate (Metoprolol Tartrate 25 Mg Tab) 75 mg PO Q12H [facility] Last Admin: 03/14/21 09:34 Dose: 75 mg Documented by: Non-Formulary Medication (Colesevelam) 1,875 mg PO BID [facility] Non-Formulary Medication (Diclofenac Sodium [Voltaren 1% Gel]) 2 gm TOP QID PRN PRN Reason: Pain Non-Formulary Medication (Lidocaine Hcl [Aspercreme Lidocaine]) 1 applic TOP Q6H PRN PRN Reason: Pain Sodium Chloride (Sodium Chloride 0.9% 10 Ml Syringe) 10 ml FLUSH ASDIRECTED PRN PRN Reason: Keep Vein Open Last Admin: 03/14/21 05:50 Dose: 10 ml Documented by: - Exam General: Reports: Alert, Oriented HEENT: Reports: Pupils Equal, Pupils Reactive, EOMI, Mucous Membr. Moist/[place] Neck: Reports: Supple Lungs: Reports: Decreased Breath Sounds Cardiovascular: Reports: Regular Rate, Regular Rhythm GI/Abdominal Exam: Normal Bowel Sounds, Soft, Non-Tender, No Organomegaly, No Distention, No Abnormal Bruit, No Mass, Pelvis Stable Back Exam: Reports: Normal Inspection, Full Range of Motion Extremities: Normal Inspection, Normal Range of Motion, Non-Tender, No Pedal Edema, Normal Capillary Refill Skin: Reports: Warm, Dry, Intact Wound/Incisions: Reports: Healing Well Neurological: Reports: No New Focal Deficit Psy/Mental Status: Reports: Alert, Normal Affect, Normal Mood
[2021-03-15] MEDS: Acetaminophen 325 MG Tab PO PRN (12:06)
[2021-03-15] MEDS: COLESEVELAM 625 MG PO SCH (12:29)
[2021-03-15] MEDS: Menthol/Methyl Salicylate 85 GM Tube TOP PRN (13:21)
== END 2021-03-15 15:30 | disposition home or self-care (01) | DRG 871 ==
LOC: DL.ED 12:42 → DL.MS 16:00
PROVIDERS: ADMIT Internal Medicine; ATTEND Internal Medicine
DX: A41.9 Sepsis, unspecified organism (principal); J18.9 Pneumonia, unspecified organism; J44.1 Chronic obstructive pulmonary disease with (acute) exacerbation; C34.90 Malignant neoplasm of unspecified part of unspecified bronchus or lung; D64.9 Anemia, unspecified; C79.31 Secondary malignant neoplasm of brain; Z68.43 Body mass index [BMI] 50.0-59.9, adult; J44.0 Chronic obstructive pulmonary disease with (acute) lower respiratory infection; R07.9 Chest pain, unspecified; I48.91 Unspecified atrial fibrillation; I10 Essential (primary) hypertension; M79.7 Fibromyalgia; G47.30 Sleep apnea, unspecified; M19.90 Unspecified osteoarthritis, unspecified site; K44.9 Diaphragmatic hernia without obstruction or gangrene; Z20.822 Contact with and (suspected) exposure to COVID-19; R32 Unspecified urinary incontinence; M85.80 Other specified disorders of bone density and structure, unspecified site; F41.9 Anxiety disorder, unspecified; E03.9 Hypothyroidism, unspecified; E11.9 Type 2 diabetes mellitus without complications; F32.9 Major depressive disorder, single episode, unspecified; D50.9 Iron deficiency anemia, unspecified; Z85.41 Personal history of malignant neoplasm of cervix uteri; K21.9 Gastro-esophageal reflux disease without esophagitis; E78.5 Hyperlipidemia, unspecified; E66.01 Morbid (severe) obesity due to excess calories; G47.33 Obstructive sleep apnea (adult) (pediatric); E11.42 Type 2 diabetes mellitus with diabetic polyneuropathy; I12.9 Hypertensive chronic kidney disease with stage 1 through stage 4 chronic kidney disease, or unspecified chronic kidney disease; N18.9 Chronic kidney disease, unspecified; K58.9 Irritable bowel syndrome, unspecified; K76.0 Fatty (change of) liver, not elsewhere classified; E53.8 Deficiency of other specified B group vitamins; H54.7 Unspecified visual loss; I25.10 Atherosclerotic heart disease of native coronary artery without angina pectoris; E78.00 Pure hypercholesterolemia, unspecified; D63.1 Anemia in chronic kidney disease; K57.90 Diverticulosis of intestine, part unspecified, without perforation or abscess without bleeding; E11.22 Type 2 diabetes mellitus with diabetic chronic kidney disease; Z85.42 Personal history of malignant neoplasm of other parts of uterus; Z86.73 Personal history of transient ischemic attack (TIA), and cerebral infarction without residual deficits; Z87.442 Personal history of urinary calculi; Z91.19 Patient's noncompliance with other medical treatment and regimen; Z88.6 Allergy status to analgesic agent; Z88.8 Allergy status to other drugs, medicaments and biological substances; Z88.1 Allergy status to other antibiotic agents; Z88.5 Allergy status to narcotic agent; Z88.2 Allergy status to sulfonamides; Z91.011 Allergy to milk products; Z79.82 Long term (current) use of aspirin; Z79.4 Long term (current) use of insulin; Z79.890 Hormone replacement therapy; Z79.899 Other long term (current) drug therapy; Z87.891 Personal history of nicotine dependence; Z79.02 Long term (current) use of antithrombotics/antiplatelets
CPT/HCPCS: 36415; 51702; 71045; 80048; 80053; 82728; 82803; 82947; 83540; 83550; 83605; 83880; 84145; 84484; 85025; 86850; 86900; 86901; 87040; 93005; 94640; 96365; 96375; 99222; 99232; 99239; 99285; 99285-25; A9270-GY; J1756; J1815-GY; J1940; J1956; J2920; J2930; J3490; J7120; J7613-GY; J7620-GY; U0002